=== PATIENT | female | born 1955 | race Caucasian/White ===

== ENCOUNTER → 2018-05-01 | Outpatient (CLI) | payer MEDICARE, OTHER ==
[2018-05-01 13:49] VITALS: BP 134/86; PULSE 67; RESP 16; TEMP 98.9; BMI 43.7
--- NOTE | 2018-05-01 15:24 | P.HPBAR ---
Bariatric H&P - History & Physicial H&P Date: 05/01/18 History & Physicial: Visit/CC: sleeve follow-up Patient initial contact: Initial weight: 148.778 kg Initial weight in pounds: 328.00 Height: 5 ft 6 in Initial BMI: 52.9 Last weight: 268 Current weight: 122.924 kg Current weight in pounds: 271.00 Current BMI: 43.7 [place] body weight (based on NIH guidelines): 58.967 kg Excess body weight loss: 28.7% The patient is a 63 year-old F who presents for Bariatric Assessment. The patient presents today for bariatric follow-up. She has had difficulty losing weight. She's had issues with chronic dysphagia once her band is tightened. She's had the LAP-BAND for approximately 6 years now. She has lost approximately 55 pounds. She is requesting information to convert to sleeve gastrectomy. Past Medical History Past Medical History: Asthma, Cancer, COPD, Diabetes Mellitus, GERD/Reflux, Hyperlipidemia, Hypertension, Osteoarthritis (OA), Rheumatoid Arthritis (RA) Additional Past Medical History / Comment(s): Diet controlled diabetic, hiatal hernia, umbilical hernia. Breast CA with radiation tx. Vertigo, degenerative disc disease, constipation, History of Any Multi-Drug Resistant Organisms: None Reported Past Surgical History: Bariatric Surgery, Bladder Surgery, Breast Surgery, Heart Catheterization, Hysterectomy, Joint Replacement, Tubal Ligation Additional Past Surgical History / Comment(s): Hx left shoulder replacement, carolann eye surgery for glaucoma. Lt breast bx and Lt breast Lumpectomy. Bladder sling. Lap Band 2011 Past Anesthesia/Blood Transfusion Reactions: No Reported Reaction Past Psychological History: Anxiety, Depression, Panic Disorder Smoking Status: Never smoker Past Alcohol Use History: None Reported Past Drug Use History: None Reported - Past Family History Mother Family Medical History: No Reported History Daughter(s) Family Medical History: Cancer Additional Family Medical History / Comment(s): Colon CA Son(s) Family Medical History: Deep Vein Thrombosis (DVT), Pulmonary Embolus Surgical - Exam Vital Signs Temp Pulse Resp BP 98.9 F 67 16 134/86 05/01/18 13:46 05/01/18 13:46 05/01/18 13:46 05/01/18 13:46 - General well developed, well nourished, no distress - Eyes PERRL - ENT normal pinna - Respiratory normal expansion - Cardiovascular Rhythm: regular - Abdomen Abdomen: soft, non tender Bariatric Assessment & Plan Plan: Carolyn discussion patient regarding conversion sleeve gastrectomy. Over the risks and benefits including possible injury to the stomach liver spleen. Patient will follow-up in one week. She will think about sleeve gastrectomy. Bariatric Checklist Checklist: Plan: Checklist: EGD: 1. Hiatal hernia: 2. H. Pylori: HgbA1c: Vitamin D: Smoking: Never smoker Primary care physician referral: [email or web address] Psychiatry clearance: Cardiology clearance: Sleep study: Diet journal: VTE risk score: VTE risk level: Rehab needs at discharge:
== END ==
LOC: BARWHC3 13:00 → MERGE 13:00
PROVIDERS: ATTEND Surgery
DX: Z09 Encounter for follow-up examination after completed treatment for conditions other than malignant neoplasm (principal); Z98.84 Bariatric surgery status
CPT/HCPCS: 99211

== ENCOUNTER → 2019-05-28 | Outpatient (CLI) | payer MEDICARE, OTHER ==
[2019-05-28 14:30] VITALS: BP 171/91; PULSE 75; TEMP 98; BMI 47.1
--- NOTE | 2019-05-28 16:57 | P.HPBAR ---
Bariatric H&P - History & Physicial H&P Date: 05/28/19 History & Physicial: Visit/CC: discuss revision to sleeve Patient initial contact: Initial weight: 148.778 kg Initial weight in pounds: 328.00 Height: 5 ft 6 in Initial BMI: 52.9 Last weight: Current weight: 132.449 kg Current weight in pounds: 292.00 Current BMI: 47.1 [place] body weight (based on NIH guidelines): 58.967 kg Excess body weight loss: 18.1% The patient is a 64 year-old F who presents for Bariatric Assessment. Patient has had issues with dysphagia. She is requesting conversion sleeve gastrectomy. She is unable to have her band adjusted tighter due to chronic dysphagia. Past Medical History Past Medical History: Asthma, Cancer, COPD, Diabetes Mellitus, GERD/Reflux, Hyperlipidemia, Hypertension, Osteoarthritis (OA), Rheumatoid Arthritis (RA) Additional Past Medical History / Comment(s): Diet controlled diabetic, hiatal hernia, umbilical hernia. Breast CA with radiation tx. Vertigo, degenerative disc disease, constipation, History of Any Multi-Drug Resistant Organisms: None Reported Past Surgical History: Bariatric Surgery, Bladder Surgery, Breast Surgery, Heart Catheterization, Hysterectomy, Joint Replacement, Tubal Ligation Additional Past Surgical History / Comment(s): Hx left shoulder replacement, carolann eye surgery for glaucoma. Lt breast bx and Lt breast Lumpectomy. Bladder sling. Lap Band 2011 Past Anesthesia/Blood Transfusion Reactions: No Reported Reaction Smoking Status: Never smoker - Past Family History Mother Family Medical History: No Reported History Daughter(s) Family Medical History: Cancer Additional Family Medical History / Comment(s): Colon CA Son(s) Family Medical History: Deep Vein Thrombosis (DVT), Pulmonary Embolus Surgical - Exam Vital Signs Temp Pulse BP 98.0 F 75 171/91 05/28/19 14:22 05/28/19 14:22 05/28/19 14:22 - General well developed, well nourished, no distress - Eyes PERRL - Abdomen Abdomen: soft, non tender Bariatric Assessment & Plan Plan: The patient has chronic dysphagia. She'll undergo EGD. She will attempt to have insurance authorization completed for conversion to sleeve gastrectomy. Bariatric Checklist Checklist: Plan: Checklist: EGD: 1. Hiatal hernia: 2. H. Pylori: HgbA1c: Vitamin D: Smoking: Never smoker Primary care physician referral: momo Psychiatry clearance: Cardiology clearance: Sleep study: Diet journal: VTE risk score: VTE risk level: Rehab needs at discharge:
== END ==
LOC: BARWHC3 13:15
PROVIDERS: ATTEND Surgery
DX: Z48.815 Encounter for surgical aftercare following surgery on the digestive system (principal); R13.10 Dysphagia, unspecified; Z98.84 Bariatric surgery status
CPT/HCPCS: 99211

== ENCOUNTER 2019-06-12 07:05 | Day surgery (SDC) | payer MEDICARE, OTHER ==
[2019-06-08 16:50] VITALS: BMI 46.5
[~2019-06-12 07:05] MED LIST: LACTATED RINGERS 1,000 ML IV SCH; LIDOCAINE 1% 20 ML VIAL (10MG/ML) FOR IV START INTRADERMA PRN
[2019-06-12 07:20] VITALS: TEMP 98.1
[2019-06-12 07:28] LABS: Glucose,Whole Blood 145 mg/dL (75-99)
[2019-06-12] MEDS ORDERED: LACTATED RINGERS 1,000 ML IV ONE ×2 (07:28)
[2019-06-12] MEDS ORDERED: PROPOFOL 10 MG/ML 20 ML VIAL IV ONE (07:40)
[2019-06-12] MEDS ORDERED: LIDOCAINE 1% INJ 10MG/ML (20 ML MDV) ONE (07:40)
--- NOTE | 2019-06-12 07:56 | P.GSHP ---
History of Present Illness H&P Date: 06/12/19 Chief Complaint: Dysphagia This is a 64-year-old female with history of dysphagia. Patient presents today for EGD. She's, putting converting to sleeve gastrectomy from her LAP-BAND. Past Medical History Past Medical History: Asthma, Cancer, COPD, Diabetes Mellitus, Eye Disorder, GERD/Reflux, Hearing Disorder / Deafness, Hyperlipidemia, Hypertension, Osteoarthritis (OA), Rheumatoid Arthritis (RA), Sleep Apnea/CPAP/BIPAP Additional Past Medical History / Comment(s): Diet controlled diabetic, hiatal hernia, umbilical hernia. Lt Breast CA with radiation tx. Vertigo, DDD, carolann cataracts. Avoids CPAP use. Occ cramping pain in ULQ abd. History of Any Multi-Drug Resistant Organisms: None Reported Past Surgical History: Bariatric Surgery, Bladder Surgery, Breast Surgery, Cholecystectomy, Heart Catheterization, Hysterectomy, Joint Replacement, Tubal Ligation Additional Past Surgical History / Comment(s): Hx left shoulder replacement, carolann eye surgery for glaucoma. Lt breast bx and Lt breast Lumpectomy. Bladder sling. Lap Band 2011. Colonoscopy Past Anesthesia/Blood Transfusion Reactions: No Reported Reaction Smoking Status: Never smoker - Past Family History Daughter(s) Family Medical History: Cancer Additional Family Medical History / Comment(s): Colon CA Son(s) Family Medical History: Deep Vein Thrombosis (DVT), Pulmonary Embolus Medications and Allergies Home Medications Medication Instructions Recorded Confirmed Type ALPRAZolam [Xanax] 0.5 mg PO TID PRN 03/17/16 06/08/19 History Cholecalciferol [Vitamin D3] 2,000 unit PO QAM 03/17/16 06/08/19 History Magnesium Oxide [Magox 400] 400 mg PO QAM 03/17/16 06/08/19 History Anastrozole [Arimidex] 1 mg PO QAM 09/23/16 06/08/19 History Lisinopril [Zestril] 5 mg PO QAM 09/23/16 06/08/19 History Meclizine [Antivert] 25 mg PO TID PRN 09/23/16 06/08/19 History Omeprazole 20 mg PO DAILY 01/10/17 06/08/19 History Ascorbic Acid [Vitamin C] 500 mg PO DAILY 06/08/19 06/08/19 History Citalopram Hydrobromide [CeleXA] 20 mg PO DAILY 06/08/19 06/08/19 History Allergies Allergy/AdvReac Type Severity Reaction Status Date / Time cigarette smoke Allergy Dyspnea, Verified 06/08/19 16:30 congestion nylon Allergy Itching Verified 06/08/19 16:30 wool Allergy Itching Verified 06/08/19 16:30 Surgical - Exam Vital Signs Temp Pulse Resp BP Pulse Ox 98.1 F 91 18 140/63 93 L 06/12/19 07:19 06/12/19 07:19 06/12/19 07:19 06/12/19 07:19 06/12/19 07:19 - General well developed, well nourished, no distress - Eyes PERRL - ENT normal pinna - Neck no masses - Respiratory normal expansion - Cardiovascular Rhythm: regular - Abdomen Abdomen: soft, non tender Results - Labs Abnormal Lab Results - Last 24 Hours (Table) 06/12/19 Range/Units 07:26 POC Glucose (mg/dL) 145 H (75-99) mg/dL Assessment and Plan Assessment: Dysphagia Morbid obesity BMI 47 We'll perform EGD.
--- NOTE | 2019-06-12 08:06 | P.OP ---
Date of Procedure: 06/12/19 Preoperative Diagnosis: Dysphagia Postoperative Diagnosis: Antral gastritis LAP-BAND without evidence of inflammation or erosion Procedure(s) Performed: EGD Anesthesia: MAC Surgeon: Justin Orourke Pathology: other (Antrum) Condition: stable Disposition: PACU Description of Procedure: The patient's placed on the endoscopy table in the lateral position. She received IV sedation. The gastroscope placed oropharynx and passed in the esophagus and into the stomach. Scope was then placed through the pylorus. The first and second portion of the duodenum appeared normal. Scope was then brought back the antrum and this appeared mildly inflamed. A biopsies performed. The scope was unretroflexed and remainder the stomach appeared normal. The patient a previous Patrice device this without evidence insufflation erosion. The GE junction was at 40 cm. Distal esophagus appeared normal. Prostate esophagus. Normal. Scope withdrawn for patient.
[2019-06-12 08:26] VITALS: BP 100/63; PULSE 94; RESP 18
--- NOTE | 2019-06-12 09:09 | P.GSHP ---
History of Present Illness H&P Date: 06/12/19 Chief Complaint: Dysphagia This is a 64-year-old female who's issues with dysphagia. Patient presents today for EGD. Past Medical History Past Medical History: Asthma, Cancer, COPD, Diabetes Mellitus, Eye Disorder, GERD/Reflux, Hearing Disorder / Deafness, Hyperlipidemia, Hypertension, Osteoarthritis (OA), Rheumatoid Arthritis (RA), Sleep Apnea/CPAP/BIPAP Additional Past Medical History / Comment(s): Diet controlled diabetic, hiatal hernia, umbilical hernia. Lt Breast CA with radiation tx. Vertigo, DDD, carolann cataracts. Avoids CPAP use. Occ cramping pain in ULQ abd. History of Any Multi-Drug Resistant Organisms: None Reported Past Surgical History: Bladder Surgery, Breast Surgery, Cholecystectomy, Heart Catheterization, Hysterectomy, Joint Replacement, Tubal Ligation Additional Past Surgical History / Comment(s): Hx left shoulder replacement, carolann eye surgery for glaucoma. Lt breast bx and Lt breast Lumpectomy. Bladder sling. Lap Band 2011. Colonoscopy Past Anesthesia/Blood Transfusion Reactions: No Reported Reaction Smoking Status: Never smoker - Past Family History Daughter(s) Family Medical History: Cancer Additional Family Medical History / Comment(s): Colon CA Son(s) Family Medical History: Deep Vein Thrombosis (DVT), Pulmonary Embolus Medications and Allergies Home Medications Medication Instructions Recorded Confirmed Type ALPRAZolam [Xanax] 0.5 mg PO TID PRN 03/17/16 06/08/19 History Cholecalciferol [Vitamin D3] 2,000 unit PO QAM 03/17/16 06/08/19 History Magnesium Oxide [Magox 400] 400 mg PO QAM 03/17/16 06/08/19 History Anastrozole [Arimidex] 1 mg PO QAM 09/23/16 06/08/19 History Lisinopril [Zestril] 5 mg PO QAM 09/23/16 06/08/19 History Meclizine [Antivert] 25 mg PO TID PRN 09/23/16 06/08/19 History Omeprazole 20 mg PO DAILY 01/10/17 06/08/19 History Ascorbic Acid [Vitamin C] 500 mg PO DAILY 06/08/19 06/08/19 History Citalopram Hydrobromide [CeleXA] 20 mg PO DAILY 06/08/19 06/08/19 History Allergies Allergy/AdvReac Type Severity Reaction Status Date / Time cigarette smoke Allergy Dyspnea, Verified 06/08/19 16:30 congestion nylon Allergy Itching Verified 06/08/19 16:30 wool Allergy Itching Verified 06/08/19 16:30 Surgical - Exam Vital Signs Temp Pulse Resp BP Pulse Ox 98.1 F 91 18 140/63 93 L 06/12/19 07:19 06/12/19 07:19 06/12/19 07:19 06/12/19 07:19 06/12/19 07:19 - General well developed, well nourished, no distress - Eyes PERRL - ENT normal pinna - Neck no masses - Respiratory normal expansion - Cardiovascular Rhythm: regular - Abdomen Abdomen: soft, non tender Results - Labs Abnormal Lab Results - Last 24 Hours (Table) 06/12/19 Range/Units 07:26 POC Glucose (mg/dL) 145 H (75-99) mg/dL Assessment and Plan Assessment: Dysphagia. We'll perform EGD.
--- NOTE | 2019-06-12 09:16 | P.OP ---
Date of Procedure: 06/12/19 Preoperative Diagnosis: Dysphagia Postoperative Diagnosis: Antral gastritis Mild esophagitis Procedure(s) Performed: EGD Anesthesia: MAC Surgeon: Justin Orourke Pathology: other (Antrum, esophagus) Condition: stable Disposition: PACU Description of Procedure: The patient's placed on the endoscopy table in the lateral position. She received IV sedation. The gastroscope placed oropharynx passed in the esophagus and stomach. Scope was then placed through the pylorus. First and second part of duodenum was normal. Scope summer back the antrum and this was mildly inflamed. A biopsies was performed. Scope was then retroflexed the remainder some appeared normal. The previous site of the LAP-BAND appeared to be without evidence of inflammation or erosion. The GE junction was at 40 cms. The distal esophagus appeared mildly inflamed a biopsies performed. The proximal esophagus appeared normal. Scope was withdrawn for patient.
== END 2019-06-12 08:35 | disposition home or self-care (01) ==
LOC: ORWHC2ENDO 07:05
PROVIDERS: ATTEND Surgery
DX: K31.9 Disease of stomach and duodenum, unspecified (principal); K21.9 Gastro-esophageal reflux disease without esophagitis; Z98.84 Bariatric surgery status; J44.9 Chronic obstructive pulmonary disease, unspecified; E11.9 Type 2 diabetes mellitus without complications; I10 Essential (primary) hypertension; E78.5 Hyperlipidemia, unspecified; H91.90 Unspecified hearing loss, unspecified ear; M19.90 Unspecified osteoarthritis, unspecified site; M06.9 Rheumatoid arthritis, unspecified; C50.912 Malignant neoplasm of unspecified site of left female breast; Z92.3 Personal history of irradiation; G47.30 Sleep apnea, unspecified; K44.9 Diaphragmatic hernia without obstruction or gangrene; K42.9 Umbilical hernia without obstruction or gangrene; R42 Dizziness and giddiness; Z90.49 Acquired absence of other specified parts of digestive tract; Z90.710 Acquired absence of both cervix and uterus; Z96.612 Presence of left artificial shoulder joint; Z96.611 Presence of right artificial shoulder joint; Z98.51 Tubal ligation status; Z84.89 Family history of other specified conditions; Z79.811 Long term (current) use of aromatase inhibitors; Z79.899 Other long term (current) drug therapy; Z91.09 Other allergy status, other than to drugs and biological substances
CPT/HCPCS: 88305; 43239; J2001; J2704

== ENCOUNTER → 2019-07-09 | Outpatient (CLI) | payer MEDICARE, OTHER ==
[2019-07-09 15:15] VITALS: BP 137/75; PULSE 88; RESP 16; TEMP 98; BMI 45.8
--- NOTE | 2019-07-09 18:02 | P.HPBAR ---
Bariatric H&P - History & Physicial H&P Date: 07/09/19 History & Physicial: Visit/CC: Removal of Band to Sleeve Patient initial contact: Initial weight: 148.778 kg Initial weight in pounds: 328.00 Height: 5 ft 6 in Initial BMI: 52.9 Last weight: Current weight: 128.82 kg Current weight in pounds: 284.00 Current BMI: 45.8 [place] body weight (based on NIH guidelines): 58.967 kg Excess body weight loss: 22.2% The patient is a 64 year-old F who presents for Bariatric Assessment. Patient presents today for LAP-BAND follow-up. She is doing has complaints of GERD and dysphagia. She is unable to tolerate any further refills. Past Medical History Past Medical History: Asthma, Cancer, COPD, Diabetes Mellitus, Eye Disorder, GERD/Reflux, Hearing Disorder / Deafness, Hyperlipidemia, Hypertension, Osteoarthritis (OA), Rheumatoid Arthritis (RA), Sleep Apnea/CPAP/BIPAP Additional Past Medical History / Comment(s): Diet controlled diabetic, hiatal hernia, umbilical hernia. Lt Breast CA with radiation tx. Vertigo, DDD, carolann cataracts. Avoids CPAP use. Occ cramping pain in ULQ abd. History of Any Multi-Drug Resistant Organisms: None Reported Past Surgical History: Bladder Surgery, Breast Surgery, Cholecystectomy, Heart Catheterization, Hysterectomy, Joint Replacement, Tubal Ligation Additional Past Surgical History / Comment(s): Hx left shoulder replacement, carolann eye surgery for glaucoma. Lt breast bx and Lt breast Lumpectomy. Bladder sling. Lap Band 2011. Colonoscopy Past Anesthesia/Blood Transfusion Reactions: No Reported Reaction Past Psychological History: Anxiety, Depression Smoking Status: Never smoker Past Alcohol Use History: None Reported Past Drug Use History: None Reported - Past Family History Daughter(s) Family Medical History: Cancer Additional Family Medical History / Comment(s): Colon CA Son(s) Family Medical History: Deep Vein Thrombosis (DVT), Pulmonary Embolus Surgical - Exam Vital Signs Temp Pulse Resp BP 98 F 88 16 137/75 07/09/19 15:12 07/09/19 15:12 07/09/19 15:12 07/09/19 15:12 - General well developed, well nourished, no distress - Eyes PERRL - ENT normal pinna - Neck no masses - Respiratory normal expansion - Cardiovascular Rhythm: regular - Abdomen Abdomen: soft, non tender Bariatric Assessment & Plan Plan: The patient wishes to convert to sleeve yesterday. She's had chronic issues with GERD and dysphagia. We'll attempt to obtain insurance authorization for conversion to sleeve. Bariatric Checklist Checklist: Plan: Checklist: EGD: 1. Hiatal hernia: 2. H. Pylori: HgbA1c: Vitamin D: Smoking: Never smoker Primary care physician referral: kut Psychiatry clearance: Cardiology clearance: Sleep study: Diet journal: VTE risk score: VTE risk level: Rehab needs at discharge:
== END ==
LOC: BARWHC3 14:14
PROVIDERS: ATTEND Surgery
DX: Z48.815 Encounter for surgical aftercare following surgery on the digestive system (principal); K21.9 Gastro-esophageal reflux disease without esophagitis; R13.10 Dysphagia, unspecified; Z98.84 Bariatric surgery status; Z90.49 Acquired absence of other specified parts of digestive tract; Z98.51 Tubal ligation status
CPT/HCPCS: 99211

== ENCOUNTER → 2019-09-10 | Outpatient (CLI) | payer MEDICARE, OTHER ==
[2019-09-10 10:07] VITALS: BMI 45.3
== END | disposition home or self-care (01) ==
LOC: BARWHC3 07:56
PROVIDERS: ATTEND Surgery
DX: E66.01 Morbid (severe) obesity due to excess calories (principal); E11.65 Type 2 diabetes mellitus with hyperglycemia; Z68.42 Body mass index [BMI] 45.0-49.9, adult
CPT/HCPCS: 97804

== ENCOUNTER → 2020-04-14 | Outpatient (CLI) | payer MEDICARE, OTHER | END | disposition home or self-care (01) | LOC: BARWHC3 07:56 | PROVIDERS: ATTEND Surgery | DX: Z53.9 Procedure and treatment not carried out, unspecified reason (principal) ==

== ENCOUNTER 2020-05-05 12:47 | Day surgery (SDC) | payer MEDICARE, OTHER ==
[2020-05-01 14:37] VITALS: BMI 47.6
--- NOTE | 2020-05-05 10:44 | HP ---
HISTORY AND PHYSICAL CHIEF COMPLAINT: Fluid in both ears. HISTORY OF PRESENT ILLNESS: This patient is a 65-year-old female who was recently seen in my office complaining of difficulty hearing. At the time that the patient was seen in my office, she stated that she had been seen at [facility] and that they had recommended that she see an ENT specialist. The patient states that she has ringing of both ears and that she has a history of having had tubes placed in her ears 5 or 6 years ago. She stated that when she talks, it sounds as if she had her head stuck in a bucket. 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 It was recommended the patient undergo a bilateral myringotomy with insertion of ventilation tubes under IV sedation with MAC. PAST MEDICAL HISTORY: Reveals the patient has seasonal allergies, but she has no known allergies to medications. She is a nonsmoker. CURRENT MEDICATIONS: Include Prilosec, Celexa, Xanax, Antivert, and lisinopril. PREVIOUS SURGERIES: Include bilateral myringotomy with insertion of ventilation tubes, shoulder surgery, cholecystectomy, hysterectomy, and lap band surgery. REVIEW OF SYSTEMS: CARDIOVASCULAR: Positive for hypertension. RESPIRATORY: Negative. GASTROINTESTINAL: Positive for gastroesophageal reflux disorder, GERD. The remainder of the review of systems is essentially unremarkable. PHYSICAL EXAMINATION: This patient is a 65-year-old female who was alert, cooperative and well-oriented in it to time and place. HEENT: Examination, patient is normocephalic. Both tympanic membranes are dull bilaterally with fluid in both middle ear spaces. Pupils are equal, round, react to light and accommodation. Extraocular movements are within normal limits. INTRANASAL EXAMINATION: Intranasal examination reveals moderate septal deviation with compensatory hypertrophy of the inferior turbinates and a moderate amount of mucus on the mucous membrane draining down the posterior pharynx. Examination of oropharynx, cranial nerves 2 through 12 and remainder of the head and neck exam are within normal limits. CHEST/CARDIOVASCULAR: Both lung carr are clear to percussion and auscultation. The patient is in regular sinus rhythm, S1, S2 are present without evidence of any murmurs S3s or S4s. Peripheral pulses are bilaterally symmetrical and within normal limits. ABDOMEN: There is no evidence any masses, megaly, or tenderness. ABDOMEN: Soft. SKIN: Unremarkable. MUSCULOSKELETAL AND NEUROLOGICAL: Within normal limits. PELVIC RECTAL EXAM: Deferred at this time because the patient has this done on a regular basis at her family physician's office. The remainder of the physical exam is unremarkable. IMPRESSION: Chronic bilateral serous otitis media. PLAN: The patient is scheduled to undergo a bilateral myringotomy with insertion of ventilation tubes under IV sedation in the a.m. Attention RNs in the pre-surgical area: I have not ordered any pre-surgical prophylactic antibiotics for this patient. If the pharmacy department sends any pre- surgical prophylactic antibiotics to the pre-surgical area for this patient, that order should be cancelled, the medication should be returned to the Pharmacy Department and make sure that the patient's account is credited appropriately. Neymar I have discussed the risks, benefits and alternative therapies for the above-mentioned procedure and for both sedation/analgesia as well as necessary blood product administration, if indicated, as they pertain to this patient. The patient has indicated his or her understanding and acceptance of the risks and procedures discussed. MMODL / IJN: [id number] /
[~2020-05-05 12:47] MED LIST changes: +HYDROmorphone 0.5 MG/0.5 ML SYRINGE IVP PRN; -LIDOCAINE 1% 20 ML VIAL (10MG/ML) FOR IV START INTRADERMA PRN; +Pre Op ABX Message 1 EACH MISC MISCELLANE ONE
[2020-05-05 13:06] VITALS: RESP 16; TEMP 96.8
[2020-05-05] MEDS ORDERED: LIDOCAINE 1% (10MG/ML) FOR IV START INTRADERMA ONE (13:15)
[2020-05-05 13:17] LABS: Glucose,Whole Blood 113 mg/dL (75-99)
[2020-05-05] MEDS ORDERED: ONDANSETRON 4 MG/2 ML VIAL ONE (13:25)
[2020-05-05] MEDS ORDERED: ONDANSETRON 4 MG/2 ML VIAL IVP ONE (13:28)
[2020-05-05] MEDS ORDERED: DEXAMETHASONE SOD PHOSPHATE 10 MG/ML 1 ML VIAL IV ONE (13:29)
[2020-05-05] MEDS ORDERED: OFLOXACIN 0.3% OPHTH DROPS 5 ML BOTTLE BOTH EARS ONE ×2 (13:54→14:09)
[2020-05-05] MEDS ORDERED: MIDAZOLAM 2 MG/2 ML VIAL ONE (13:55)
[2020-05-05] MEDS ORDERED: PROPOFOL 10 MG/ML 20 ML VIAL IV ONE (13:55)
[2020-05-05] MEDS ORDERED: fentaNYL (PF) 50 MCG/ML 2 ML AMP ONE (13:55)
[2020-05-05 15:07] VITALS: BP 122/78; PULSE 79
--- NOTE | 2020-05-05 23:29 | OP ---
OPERATIVE REPORT DATE OF SURGERY: 05/05/2020 PREOPERATIVE DIAGNOSIS: Chronic bilateral serous otitis media. POSTOPERATIVE DIAGNOSIS: Chronic bilateral serous otitis media. ANESTHESIA: IV sedation with MAC. OPERATIVE PROCEDURE: Bilateral myringotomy with insertion of Andres T-type ventilation tubes. OPERATING SURGEON: Dr. Blackmon. COMPLICATIONS: None. OPERATIVE PROCEDURE: The patient was placed on the operating table in the supine position after uneventful induction and mask anesthesia. Satisfactory general anesthesia was obtained. Next, the operating microscope was brought into position over the patient?s right ear where after insertion of a #3 aural speculum, the external auditory canal was cleansed of all wax and debris and a myringotomy knife was used to make an incision in the anterior inferior quadrant of the right tympanic membrane. Next, the middle ear space was suctioned free of all fluid and a T-type ventilation tube was inserted through the previously made myringotomy incision without any difficulty. Attention was then directed to the left ear where the same procedure was carried out using the operating microscope and #3 aural speculum. The external auditory canal was cleansed of all wax and debris and the myringotomy knife was used to make an incision in the anterior inferior quadrant of the left tympanic membrane. Once again, the middle ear space was suctioned free of all fluid and a T-type ventilation tube was inserted through the previously made myringotomy incision without any difficulty. At this point, the procedure was terminated. There were no intraoperative complications. The patient tolerated the procedure well and was returned to the recovery room in satisfactory condition. MMODL / IJN: [id number] /
== END 2020-05-05 14:58 | disposition home or self-care (01) ==
LOC: OR 12:47
PROVIDERS: ATTEND Otolaryngology
DX: H65.23 Chronic serous otitis media, bilateral (principal); I10 Essential (primary) hypertension; E78.5 Hyperlipidemia, unspecified; J44.9 Chronic obstructive pulmonary disease, unspecified; E11.39 Type 2 diabetes mellitus with other diabetic ophthalmic complication; H42 Glaucoma in diseases classified elsewhere; G47.33 Obstructive sleep apnea (adult) (pediatric); M06.9 Rheumatoid arthritis, unspecified; E66.01 Morbid (severe) obesity due to excess calories; K21.9 Gastro-esophageal reflux disease without esophagitis; Z79.899 Other long term (current) drug therapy; Z98.84 Bariatric surgery status; Z91.09 Other allergy status, other than to drugs and biological substances; Z90.49 Acquired absence of other specified parts of digestive tract; Z90.710 Acquired absence of both cervix and uterus; Z98.890 Other specified postprocedural states
CPT/HCPCS: 69436; J2250; J1100; J2405; J3010; J2704

== ENCOUNTER → 2020-06-30 | Outpatient (CLI) | payer MEDICARE, OTHER ==
[2020-06-30 13:08] VITALS: BP 133/84; PULSE 70; RESP 16; TEMP 98.1; BMI 46.6
--- NOTE | 2020-06-30 14:02 | P.HPBAR ---
Bariatric H&P - History & Physicial H&P Date: 06/30/20 History & Physicial: Visit/CC: Pre-Surg Patient initial contact: Initial weight: 148.778 kg Initial weight in pounds: 328.00 Height: 5 ft 6 in Initial BMI: 52.9 Last weight: Current weight: 131.088 kg Current weight in pounds: 289.00 Current BMI: 46.6 [place] body weight (based on NIH guidelines): 58.967 kg Excess body weight loss: 19.6% The patient is a 65 year-old F who presents for Bariatric Assessment. She presents today for presurgical consultation. She's had history of dysphagia related to her LAP-BAND. She is being scheduled for conversion to sleeve gastrectomy with removal of LAP-BAND. Patient is an excellent understanding of the procedure. We went over the risks and benefits of procedure including conversion to the open procedure and injury to the stomach liver spleen and issues gastric staple lines of bleeding scarring obstruction. Past Medical History Past Medical History: Asthma, Cancer, COPD, Diabetes Mellitus, Eye Disorder, GERD/Reflux, Hearing Disorder / Deafness, Hyperlipidemia, Hypertension, Osteoarthritis (OA), Rheumatoid Arthritis (RA), Sleep Apnea/CPAP/BIPAP Additional Past Medical History / Comment(s): Diet controlled diabetic, intermittent heart murmur, hiatal hernia, umbilical hernia. Breast CA with radiation tx. 4 years ago, Vertigo, degenerative disc disease, constipation, doesn't use CPAP, glaucoma History of Any Multi-Drug Resistant Organisms: None Reported Past Surgical History: Bariatric Surgery, Bladder Surgery, Breast Surgery, Cholecystectomy, Heart Catheterization, Hysterectomy, Joint Replacement, Tubal Ligation Additional Past Surgical History / Comment(s): Hx left shoulder replacement, carolann eye surgery for glaucoma. Lt breast bx and Lt breast Lumpectomy. Bladder sling. Lap Band 2011, cataracts removed Past Anesthesia/Blood Transfusion Reactions: No Reported Reaction Past Psychological History: Anxiety, Depression, Panic Disorder Smoking Status: Never smoker Past Alcohol Use History: None Reported Past Drug Use History: None Reported - Past Family History Daughter(s) Family Medical History: Cancer Additional Family Medical History / Comment(s): Colon CA Son(s) Family Medical History: Deep Vein Thrombosis (DVT), Pulmonary Embolus Surgical - Exam Vital Signs Temp Pulse Resp BP 98.1 F 70 16 133/84 06/30/20 13:05 06/30/20 13:05 06/30/20 13:05 06/30/20 13:05 - General well developed, well nourished, no distress - Eyes PERRL - ENT normal pinna - Neck no masses - Respiratory normal expansion - Cardiovascular Rhythm: regular - Abdomen Abdomen: soft, non tender Bariatric Assessment & Plan Plan: Dysphagia related to her LAP-BAND. Patient will be scheduled for conversion to sleeve gastrectomy and removal of LAP-BAND system. Bariatric Checklist Checklist: Plan: Checklist: EGD: 1. Hiatal hernia: 2. H. Pylori: HgbA1c: Vitamin D: Smoking: Never smoker Primary care physician referral: kut Psychiatry clearance: Cardiology clearance: Sleep study: Diet journal: VTE risk score: VTE risk level: Rehab needs at discharge:
== END | disposition home or self-care (01) ==
LOC: BARWHC3 12:45
PROVIDERS: ATTEND Surgery
DX: R13.10 Dysphagia, unspecified (principal); Z46.51 Encounter for fitting and adjustment of gastric lap band
CPT/HCPCS: 99211

== ENCOUNTER → 2020-07-03 | Outpatient (CLI) | payer MEDICARE, OTHER ==
[2020-07-03 13:20] LABS: Basophils % (A) 1 %; Eosinophils # (A) 0.2 k/uL (0-0.7); Eosinophils % (A) 3 %; HCT 48.9 % (34.0-46.0); HGB 15.8 gm/dL (11.4-16.0); Lymphocytes # (A) 2.3 k/uL (1.0-4.8); Lymphocytes % (A) 36 %; MCH 29.9 pg (25.0-35.0); MCHC 32.3 g/dL (31.0-37.0); MCV 92.6 fL (80.0-100.0); Mean Platelet Volume 7.1; Monocytes # (A) 0.3 k/uL (0-1.0); Monocytes % (A) 5 %; Neutrophils # (A) 3.3 k/uL (1.3-7.7); Neutrophils % (A) 53 %; Platelet Count 324 k/uL (150-450); RBC 5.28 m/uL (3.80-5.40); RDW 13.4 % (11.5-15.5); WBC 6.3 k/uL (3.8-10.6)
[2020-07-03 13:38] LABS: Albumin 4.2 g/dL (3.5-5.0); Calcium 9.8 mg/dL (8.4-10.2); Total Bilirubin 0.6 mg/dL (0.2-1.3); Total Protein 7.7 g/dL (6.3-8.2)
== END | disposition home or self-care (01) ==
LOC: LABPAT 12:35
PROVIDERS: ATTEND Surgery
DX: Z01.818 Encounter for other preprocedural examination (principal)
CPT/HCPCS: 36415; 80053; 85025

== ENCOUNTER 2020-07-08 07:28 | Inpatient (IN) | payer MEDICARE, OTHER ==
[~2020-07-08 07:28] MED LIST changes: +ENOXAPARIN 40 MG/0.4 ML SYRINGE SQ ONE; -LACTATED RINGERS 1,000 ML IV SCH; +ONDANSETRON 4 MG/2 ML VIAL IVP ONE; -Pre Op ABX Message 1 EACH MISC MISCELLANE ONE; +ceFAZolin 3 GM in SODIUM CHLORIDE 0.9% 100 ML IVPB ONE; +fentaNYL (PF) 50 MCG/ML 2 ML AMP IV PRN
[2020-07-08 08:20] LABS: Glucose,Whole Blood 126 mg/dL (75-99)
[2020-07-08] MEDS: LACTATED RINGERS 1,000 ML IV SCH ×4 (08:25→14:28)
[2020-07-08] MEDS ORDERED: ONDANSETRON 4 MG/2 ML VIAL ONE (08:25)
[2020-07-08] MEDS ORDERED: ONDANSETRON 4 MG/2 ML VIAL IVP ONE (08:25)
[2020-07-08] MEDS ORDERED: DEXAMETHASONE SOD PHOSPHATE 4 MG/ML 1 ML VIAL IVP ONE (08:26)
--- NOTE | 2020-07-08 08:29 | P.GSHP ---
History of Present Illness H&P Date: 07/08/20 Chief Complaint: Dysphagia This 65-year-old female with history of LAP-BAND surgery. Patient's had complaints of dysphagia. Patient is morbidly obese. She is unable to have her Patrice adjusted. She presents today for removal of LAP-BAND conversion to sleeve gastrectomy. Past Medical History Past Medical History: Asthma, Cancer, COPD, Diabetes Mellitus, Eye Disorder, Hearing Disorder / Deafness, Hypertension, Osteoarthritis (OA), Rheumatoid Arthritis (RA), Sleep Apnea/CPAP/BIPAP Additional Past Medical History / Comment(s): Diet controlled diabetic, intermittent heart murmur, hiatal hernia, umbilical hernia. Breast CA with radiation tx. 4 years ago, Vertigo, degenerative disc disease, constipation, doesn't use CPAP, glaucoma, History of Any Multi-Drug Resistant Organisms: None Reported Past Surgical History: Bariatric Surgery, Bladder Surgery, Breast Surgery, Cholecystectomy, Ear Surgery, Heart Catheterization, Hysterectomy, Joint Replacement, Orthopedic Surgery, Tubal Ligation Additional Past Surgical History / Comment(s): Hx left shoulder replacement, carolann eye surgery for glaucoma. Lt breast biopsy and Lt breast Lumpectomy. Bladder sling. Lap Band 2011, carolann cataracts removed, carolann carpal tunnel, tubes carolann ears, Past Anesthesia/Blood Transfusion Reactions: No Reported Reaction Smoking Status: Never smoker - Past Family History Mother Family Medical History: No Reported History Daughter(s) Family Medical History: Cancer Additional Family Medical History / Comment(s): Colon CA Son(s) Family Medical History: Deep Vein Thrombosis (DVT), Pulmonary Embolus Medications and Allergies Home Medications Medication Instructions Recorded Confirmed Type Cholecalciferol [Vitamin D3] 2,000 unit PO QAM 03/17/16 07/04/20 History Magnesium Oxide [Magox 400] 400 mg PO QAM 03/17/16 07/04/20 History Anastrozole [Arimidex] 1 mg PO QAM 09/23/16 07/04/20 History Meclizine [Antivert] 25 mg PO TID PRN 09/23/16 07/04/20 History lisinopriL [Zestril] 10 mg PO QAM 09/23/16 07/04/20 History Omeprazole 20 mg PO DAILY 01/10/17 07/04/20 History Ascorbic Acid [Vitamin C] 500 mg PO DAILY 06/08/19 07/04/20 History Citalopram Hydrobromide [CeleXA] 20 mg PO DAILY 06/08/19 07/04/20 History Allergies Allergy/AdvReac Type Severity Reaction Status Date / Time cigarette smoke Allergy Dyspnea, Verified 07/08/20 07:59 congestion nylon Allergy Itching Verified 07/08/20 07:59 wool Allergy Itching Verified 07/08/20 07:59 Surgical - Exam Vital Signs Temp Pulse Resp BP Pulse Ox 97 F L 99 16 128/69 100 07/08/20 08:04 07/08/20 08:04 07/08/20 08:04 07/08/20 08:04 07/08/20 08:04 - General well developed, well nourished, no distress - Eyes PERRL - ENT normal pinna - Neck no masses - Respiratory normal expansion - Cardiovascular Rhythm: regular - Abdomen Abdomen: soft, non tender Results - Labs Abnormal Lab Results - Last 24 Hours (Table) 07/08/20 Range/Units 08:18 POC Glucose (mg/dL) 126 H (75-99) mg/dL Assessment and Plan Assessment: Morbid obesity, dysphagia, we'll perform removal of LAP-BAND and conversion to sleeve gastrectomy.
[2020-07-08] MEDS ORDERED: PROPOFOL 10 MG/ML 20 ML VIAL IV ONE (08:49)
[2020-07-08] MEDS ORDERED: fentaNYL (PF) 50 MCG/ML 2 ML AMP ONE (08:49)
[2020-07-08] MEDS ORDERED: MIDAZOLAM 2 MG/2 ML VIAL ONE (08:49)
[2020-07-08] MEDS ORDERED: NEOSTIGMINE 1 MG/ML 10 ML VIAL ONE (08:49)
[2020-07-08] MEDS ORDERED: PHENYLEPHRINE-0.9% NACL SYG 1 MG/10 ML SYRINGE ONE (08:49)
[2020-07-08] MEDS ORDERED: ePHEDrine SULFATE/0.9% NACL/PF 50 MG/5 ML SYRINGE IV ONE (08:49)
[2020-07-08] MEDS ORDERED: ROCURONIUM 10 MG/ML (10 ML VIAL) IV ONE (08:49)
[2020-07-08] MEDS ORDERED: GLYCOPYRROLATE 0.2 MG/ML 2 ML VIAL ONE (08:49)
[2020-07-08] MEDS ORDERED: LIDOCAINE 1% INJ 10MG/ML (20 ML MDV) ONE (08:49)
[2020-07-08] MEDS ORDERED: SUCCINYLCHOLINE CHLORIDE VIAL 200 MG/10 ML VIAL IV ONE (08:49)
[2020-07-08] MEDS ORDERED: HYDROmorphone (PF) 1 MG/ML ONE (08:49)
[2020-07-08] MEDS ORDERED: LIDOCAINE 1%-EPI 1:100,000 20 ML VIAL SQ ONE (09:28)
[2020-07-08] MEDS ORDERED: LACTATED RINGERS 1,000 ML IV ONE (10:12)
[2020-07-08] MEDS ORDERED: HYOSCYAMINE ORAL DROPS 1.875 MG/15 ML BOTTLE PO PRN (10:23)
[2020-07-08] MEDS ORDERED: SIMETHICONE 40 MG/0.6 ML DROPS 2,000 MG/30 ML BOTTLE PO PRN (10:23)
[2020-07-08] MEDS ORDERED: diphenhydrAMINE 50 MG/ML 1 ML VIAL IVP PRN (10:23)
[2020-07-08] MEDS ORDERED: NALOXONE 0.4 MG/ML 1 ML VIAL IV PRN (10:23)
[2020-07-08] MEDS ORDERED: HYDROmorphone 1 MG/ML 1 ML SYRINGE IVP PRN (10:23)
[2020-07-08] MEDS ORDERED: ONDANSETRON 4 MG/2 ML VIAL IVP PRN (10:23)
--- NOTE | 2020-07-08 10:28 | P.OP ---
Date of Procedure: 07/08/20 Preoperative Diagnosis: Morbid obesity Dysphagia Postoperative Diagnosis: Morbid obesity, BMI 45 Dysphagia Procedure(s) Performed: Laparoscopic removal of LAP-BAND system Laparoscopic sleeve gastrectomy Anesthesia: JON Surgeon: Justin Orourke Estimated Blood Loss (ml): 25 Pathology: other (Stomach) Condition: stable Disposition: PACU Description of Procedure: The patient was placed on the operating room table in the supine position. She received general anesthesia and then was placed in dorsal lithotomy position. Her abdomen was prepped and draped in sterile fashion. The LAP-BAND port was dissected free by incising the skin over the LAP-BAND port and then using cautery dissected the port free from some taste tissues. The PEG tube was then cut and the port was withdrawn from patient. The skin incision sites were anesthetized 1% local Xylocaine. And then the skin was incised with an 11 blade in the left lateral position. Using a blade less trocar under direct visualization the peritoneal cavity was entered. The abdomen was insufflated and then a 5 mm laparoscope was placed into the peritoneal cavity. A 5 mm trocar was placed in the right epigastric, and right lateral position. A 15 mm trocar was placed in the supra-umbilical position and another 5 mm trocar was placed in the left lateral position. The left lateral lobe of the liver was retracted. The stomach was visualized. The adhesions to the LAP-BAND device then lysed using a large cautery and sharp dissection. The anterior gastric wall plication was taken down using sharp dissection. And then the LAP-BAND was withdrawn from around stomach. LAP-BAND was extracted 15 mm trocar site. The greater curvature of the stomach was then dissected using the Harmonic scissors. The dissection occurred approximately 5 cm from the pylorus to the level of the left ira. There was no hiatal hernia seen. At this point a 40- Guamanian bougie dilator was placed the oropharynx and passed into the esophagus and into the stomach by the [employer]. The sleeve gastrectomy was performed by using the powered echelon stapler with a seam guard buttress material. Sequential firings of the stapler were performed. The gastric remnant was then brought out through the 15 mm trocar site. The dilator was withdrawn. And a orogastric tube was replaced into the stomach. The stomach was insufflated with 200 mL of methylene blue normal saline. There was no evidence of extravasation. The abdomen was irrigated there is no bleeding seen. The Michael-Kam device was used to close the 15 mm trocar with 0 Vicryl. Skin was closed with interrupted 3-0 Monocryl sutures once the trochars withdrawn. Dermabond dressing was applied. Patient was sent to recovery in stable condition.
[2020-07-08 10:48] LABS: Glucose,Whole Blood 170 mg/dL (75-99)
[2020-07-08] MEDS: ALBUTEROL NEBULIZED 2.5 MG/3 ML INHALATION SCH ×3 (12:00→20:31)
[2020-07-08] MEDS ORDERED: SODIUM CHLORIDE 0.9% 1,000 ML IV ONE (14:13)
[2020-07-08] MEDS: KETOROLAC 15 MG/ML 1 ML VIAL IVP SCH ×3 (14:27→23:10)
[2020-07-08] MEDS: 0.9% NACL WITH KCL 20 MEQ/L 1,000 ML IV SCH ×2 (16:30→22:41)
[2020-07-08 17:15] LABS: Glucose,Whole Blood 134 mg/dL (75-99)
--- NOTE | 2020-07-08 18:44 | P.CONS ---
History of Present Illness - Reason for Consult Consult date: 07/08/20 Medical management, diabetes and breast cancer Requesting physician: Justin Orourke - Chief Complaint Post gastric sleeve, morbid obesity, hypertension COPD - History of Present Illness 65-year-old female one of Dr. Contreras patient with multiple medical problem who had lab and years ago has not been working for the last 5 years known to have history of type 2 diabetes diet-controlled, history of hypertension, rheumatoid arthritis, obstructive sleep apnea and morbid obesity who was seen by Dr. Orourke and scheduled for elective gastric sleeve to convert her lap band into sleeve. Patient was admitted to the hospital today had her surgery successfully with no major complication. Patient had multiple comorbidity for her morbid obesity from obstructive sleep apnea to severe degenerative joint disease 2 type 2 diabetes 2 noncontrolled hypertension. Patient otherwise hemodynamically stable and pain is well controlled. Review of Systems CONSTITUTIONAL: Well-developed no acute respiratory distress. Morbid obesity EYES: No icterus sclerae, no conjunctivitis. EARS, NOSE, MOUTH, THROAT, and FACE: No sore throat, lymphadenopathy, carotid bruits or deformity. RESPIRATORY: History of asthma/COPD with reactive airway, CARDIOVASCULAR: No CP, Palpitation, PND, Orthopnea, or angina. GASTROINTESTINAL: No Abd pain, Nausea or vomiting, no Diarrhea or constipation, No GI Bleed, no distention or masses. GENITOURINARY: Negative for Hematuria or UTI, no kidney stones. INTEGUMENT/BREAST: Negative for any muscular injury with mild osteoarthritis.. HEMATOLOGIC/LYMPHATIC: Negative for bleed or purpura. MUSCULOSKELTAL: Negative for Myalgia or arthralgia. NEURLOGICAL: No LOC, Sz or syncope, blurred vision dizziness or abnormality.. BEHAVIORAL/PSYCH: Negative. ENDOCRINE: Negative. Social history: Patient does not smoke no alcohol abuse, no drug use she is and lives home alone. She is retired from factory work. Family history: Her father a 68 from [place], mother age 85 from old age, patient had 1 sister with eye from complication of type 1 diabetes, one brother who is age 83 with no major medical problem. Also patient has 2 children her daughter had stage IV colon cancer and had son had 4 blood clot so far. Past Medical History Past Medical History: Asthma, Cancer, COPD, Diabetes Mellitus, Eye Disorder, Hearing Disorder / Deafness, Hypertension, Osteoarthritis (OA), Rheumatoid Arthritis (RA), Sleep Apnea/CPAP/BIPAP Additional Past Medical History / Comment(s): Diet controlled diabetic, intermittent heart murmur, hiatal hernia, umbilical hernia. Breast CA with radiation tx. 4 years ago, Vertigo, degenerative disc disease, constipation, doesn't use CPAP, glaucoma, History of Any Multi-Drug Resistant Organisms: None Reported Past Surgical History: Bariatric Surgery, Bladder Surgery, Breast Surgery, Cholecystectomy, Ear Surgery, Heart Catheterization, Hysterectomy, Joint Replacement, Orthopedic Surgery, Tubal Ligation Additional Past Surgical History / Comment(s): Hx left shoulder replacement, carolann eye surgery for glaucoma. Lt breast biopsy and Lt breast Lumpectomy. Bladder sling. Lap Band 2012, carolann cataracts removed, carolann carpal tunnel, tubes carolann ears, Past Anesthesia/Blood Transfusion Reactions: No Reported Reaction Past Psychological History: Anxiety, Depression, Panic Disorder Smoking Status: Never smoker Past Alcohol Use History: None Reported Past Drug Use History: None Reported - Past Family History Mother Family Medical History: No Reported History Daughter(s) Family Medical History: Cancer Additional Family Medical History / Comment(s): Colon CA Son(s) Family Medical History: Deep Vein Thrombosis (DVT), Pulmonary Embolus Medications and Allergies Home Medications Medication Instructions Recorded Confirmed Type Cholecalciferol [Vitamin D3] 2,000 unit PO QAM 03/17/16 07/04/20 History Magnesium Oxide [Magox 400] 400 mg PO QAM 03/17/16 07/04/20 History Anastrozole [Arimidex] 1 mg PO QAM 09/23/16 07/04/20 History Meclizine [Antivert] 25 mg PO TID PRN 09/23/16 07/04/20 History lisinopriL [Zestril] 10 mg PO QAM 09/23/16 07/04/20 History Omeprazole 20 mg PO DAILY 01/10/17 07/04/20 History Ascorbic Acid [Vitamin C] 500 mg PO DAILY 06/08/19 07/04/20 History Citalopram Hydrobromide [CeleXA] 20 mg PO DAILY 06/08/19 07/04/20 History Allergies Allergy/AdvReac Type Severity Reaction Status Date / Time cigarette smoke Allergy Dyspnea, Verified 07/08/20 07:59 congestion nylon Allergy Itching Verified 07/08/20 07:59 wool Allergy Itching Verified 07/08/20 07:59 Physical Exam Vitals: Vital Signs Temp Pulse Pulse Pulse Resp BP Pulse Ox 07/08/20 16:51 76 07/08/20 16:35 72 07/08/20 14:34 98.1 F 84 16 116/71 94 L 07/08/20 13:30 82 16 142/80 95 07/08/20 13:00 77 16 141/81 95 07/08/20 12:30 74 16 140/70 96 07/08/20 12:15 84 16 145/67 97 07/08/20 12:00 75 16 147/75 96 07/08/20 11:45 78 16 139/76 96 07/08/20 11:30 80 16 139/76 96 07/08/20 11:15 86 16 130/61 92 L 07/08/20 11:00 88 16 125/64 95 07/08/20 10:45 87 16 123/63 97 07/08/20 10:34 98.2 F 95 18 142/77 95 07/08/20 08:04 97 F L 99 16 128/69 100 Intake and Output 07/08/20 07/08/20 07/08/20 06:59 14:59 22:59 Intake Total 1150 Output Total 10 Balance 1140 Intake: IV 1150 Output: Estimated Blood Loss 10 Other: Weight 127.6 kg General Appearance: Alert, cooperative, no distress, appears stated age. Morbidly obese Neck HEENT: Supple, no lymphadenopathy, no thyroid enlargement, no carotid bruits. Lungs: Decreased breath sound bilaterally with fine rhonchi no crackles has mild expiratory wheezes. Chest Wall: Decrease expansion with deep inspiration no tenderness and no deformity was found on exam, no costochondral pain or discomfort. Heart: Regular rate and rhythm, S1, S2 normal, no murmur, rub or gallop. Back: Symmetric, no curvature, ROM normal, no CVA tenderness. Abdomen: Soft, non-tender, bowel sounds active all four quadrants, no masses, no organomegaly. Incision from her surgical site looks fine with no bleeding. Extremities: Extremities normal, atraumatic, no cyanosis or edema. Pulses: 2+ and symmetric. Skin: Skin color, texture, tugor normal, no rashes or lesions. Neurologic: Alert oriented x3 cranial nerves II through XII intact, no motor deficit, no abnormal balance or gait. Results Labs: Abnormal Lab Results - Last 24 Hours (Table) 07/08/20 07/08/20 07/08/20 Range/Units 08:18 10:47 17:07 POC Glucose (mg/dL) 126 H 170 H 134 H (75-99) mg/dL Assessment and Plan Assessment: 1 post gastric sleeve: Surgery successful continue to watch patient's symptoms continue to watch hemodynamic status vitals, continue to watch patient pain, GI DVT and pulmonary prophylaxis protocol. 2 hypertension: Remain well controlled on lisinopril 10 mg daily continue medication. 3 history of asthma/COPD: Remain on Ventolin nebulizer on demand. 4 history of breast cancer colon in remission still on Arimidex 1 mg daily. 5 history of depression: Has been on citalopram 20 mg a day resume medication. 6 chronic history of's GERD: Continue patient on pantoprazole 40 mg daily. 7 history of obstructive sleep apnea: Continue to use CPAP at nighttime. 8 DVT prophylaxis: Patient will be on Lovenox 40 mg subcutaneous daily. CODE STATUS: Full code. Dr. Orourke thank you very much for the consult if I can be any further help to please let me know.
[2020-07-08 20:52] LABS: Glucose,Whole Blood 121 mg/dL (75-99)
[2020-07-09] MEDS: 0.9% NACL WITH KCL 20 MEQ/L 1,000 ML IV SCH (04:55)
[2020-07-09] MEDS: KETOROLAC 15 MG/ML 1 ML VIAL IVP SCH ×4 (05:41→23:50)
[2020-07-09 06:36] LABS: Basophils % (A) 0 %; Eosinophils % (A) 0 %; HCT 41.4 % (34.0-46.0); HGB 13.4 gm/dL (11.4-16.0); Lymphocytes # (A) 1.7 k/uL (1.0-4.8); Lymphocytes % (A) 17 %; MCH 30.7 pg (25.0-35.0); MCHC 32.2 g/dL (31.0-37.0); MCV 95.3 fL (80.0-100.0); Monocytes # (A) 0.4 k/uL (0-1.0); Monocytes % (A) 4 %; Neutrophils # (A) 7.5 k/uL (1.3-7.7); Neutrophils % (A) 77 %; Platelet Count 277 k/uL (150-450); RBC 4.35 m/uL (3.80-5.40); RDW 13.4 % (11.5-15.5); WBC 9.7 k/uL (3.8-10.6)
[2020-07-09 07:05] LABS: Glucose,Whole Blood 97 mg/dL (75-99)
[2020-07-09] MEDS: lisinopriL 10 MG TAB PO SCH ×2 (08:56→10:01)
[2020-07-09] MEDS ORDERED: NON FORMULARY DRUG (Omeprazole [Omeprazole] 20 MG Capsule.Dr) PO SCH (09:00)
--- NOTE | 2020-07-09 09:23 | FL ---
EXAMINATION TYPE: FL UGI DATE OF EXAM: 07/09/2020 CLINICAL HISTORY: Status post gastric sleeve Contrast: Omnipaque 350 50 mL The patient ingested contrast without difficulty or delay. Noted are postsurgical changes of gastric sleeve. There is no evidence for leak or obstruction. Contrast is noted within the duodenum. IMPRESSION: Post-surgical change of gastric sleeve without evidence for obstruction or leak at this point in time.
[2020-07-09 09:33] LABS: African American GFR (CKD) 67.5 (60.0-200.0); Anion Gap 4.6 mmol/L (4.00-12.00); Carbon Dioxide 29.4 mmol/L (21.6-31.8); Magnesium 1.7 mg/dL (1.5-2.4); Non-African American GFR(CKD) 58.2 (60.0-200.0); Phosphorus 4.1 mg/dL (2.4-5.1); Potassium 5.2 mmol/L (3.5-5.5)
[2020-07-09] MEDS: ALBUTEROL NEBULIZED 2.5 MG/3 ML INHALATION SCH ×4 (09:50→21:08)
[2020-07-09] MEDS: 1: MVI, ADULT NO.4 WITH VIT K 10 ML, THIAMINE 100 MG, FOLIC ACID 1 MG, POTASSIUM CHLORID IV SCH ×12 (10:00→20:51)
[2020-07-09] MEDS: PANTOPRAZOLE 40 MG/10 ML VIAL IV SCH (10:02)
[2020-07-09] MEDS: CHOLECALCIFEROL 1,000 UNIT TAB PO SCH (10:02)
[2020-07-09] MEDS: CITALOPRAM HYDROBROMIDE 20 MG TAB PO SCH (10:02)
[2020-07-09] MEDS: MAGNESIUM OXIDE 400 MG TAB PO SCH (10:02)
[2020-07-09] MEDS: ENOXAPARIN 40 MG/0.4 ML SYRINGE SQ SCH (10:03)
[2020-07-09] MEDS: ANASTROZOLE 1 MG TAB PO SCH (10:03)
[2020-07-09] MEDS: LACTATED RINGERS 1,000 ML IV SCH (10:19)
[2020-07-09 10:34] VITALS: BMI 45.3
--- NOTE | 2020-07-09 10:52 | P.PN ---
Subjective Progress Note Date: 07/09/20 HISTORY OF PRESENT ILLNESS 65-year-old female one of Dr. Contreras patient with multiple medical problem who had lab and years ago has not been working for the last 5 years known to have history of type 2 diabetes diet-controlled, history of hypertension, rheumatoid arthritis, obstructive sleep apnea and morbid obesity who was seen by Dr. Orourke and scheduled for elective gastric sleeve to convert her lap band into sleeve. Patient was admitted to the hospital today had her surgery successfully with no major complication. Patient had multiple comorbidity for her morbid obesity from obstructive sleep apnea to severe degenerative joint disease 2 type 2 diabetes 2 noncontrolled hypertension. Patient otherwise hemodynamically stable and pain is well controlled. 07/09: Patient is currently on ice chips only. She underwent upper GI which revealed no obstruction and no leak. Anticipate the diet will be advanced by Dr. Orourke today. Patient has been afebrile, heart rate 63, blood pressure 111/67, pulse ox 92% on 2 L nasal cannula. CBC within normal limits. Electrolytes and renal function normal. Blood sugar 97. Magnesium 1.7, potassium 5.2. REVIEW OF SYSTEMS CONSTITUTIONAL: Well-developed no acute respiratory distress. Morbid obesity. No fever or chills. EYES: No icterus sclerae, no conjunctivitis. EARS, NOSE, MOUTH, THROAT, and FACE: No sore throat, lymphadenopathy, carotid bruits or deformity. RESPIRATORY: History of asthma/COPD with reactive airway, CARDIOVASCULAR: No CP, Palpitation, PND, Orthopnea, or angina. GASTROINTESTINAL: No Abd pain, Nausea or vomiting, no Diarrhea or constipation, No GI Bleed, no distention or masses. GENITOURINARY: Negative for Hematuria or UTI, no kidney stones. INTEGUMENT/BREAST: Negative for any muscular injury with mild osteoarthritis.. HEMATOLOGIC/LYMPHATIC: Negative for bleed or purpura. MUSCULOSKELTAL: Negative for Myalgia or arthralgia. NEURLOGICAL: No LOC, Sz or syncope, blurred vision dizziness or abnormality.. BEHAVIORAL/PSYCH: Negative. ENDOCRINE: Negative. PHYSICAL EXAMINATION General Appearance: Alert, cooperative, no distress, appears stated age. Morbidly obese Neck HEENT: Supple, no lymphadenopathy, no thyroid enlargement, no carotid bruits. Lungs: Decreased breath sound bilaterally with fine rhonchi no crackles has mild expiratory wheezes. Chest Wall: Decrease expansion with deep inspiration no tenderness and no deformity was found on exam, no costochondral pain or discomfort. Heart: Regular rate and rhythm, S1, S2 normal, no murmur, rub or gallop. Back: Symmetric, no curvature, ROM normal, no CVA tenderness. Abdomen: Soft, non-tender, bowel sounds active all four quadrants, no masses, no organomegaly. Incision from her surgical site looks fine with no bleeding. Extremities: Extremities normal, atraumatic, no cyanosis or edema. Pulses: 2+ and symmetric. Skin: Skin color, texture, tugor normal, no rashes or lesions. Neurologic: Alert oriented x3 cranial nerves II through XII intact, no motor deficit, no abnormal balance or gait. ASSESSMENT AND PLAN 1 post gastric sleeve: Surgery successful continue to watch patient's symptoms continue to watch hemodynamic status vitals, continue to watch patient pain, GI DVT and pulmonary prophylaxis protocol. Anticipate diet will be advanced. 2 hypertension: Remain well controlled on lisinopril 10 mg daily continue medication- parameters added. 3 mild intermittent asthma/COPD: Remain on Ventolin nebulizer on demand. 4 history of breast cancer colon in remission still on Arimidex 1 mg daily. 5 recurrent depression: Has been on citalopram 20 mg a day resume medication. 6 chronic history of's GERD: Continue patient on pantoprazole 40 mg daily. 7 history of obstructive sleep apnea: Continue to use CPAP at nighttime. 8 DVT prophylaxis: Patient will be on Lovenox 40 mg subcutaneous daily. CODE STATUS: Full code. DISCHARGE PLAN Home in the next 24 hours. Impression and plan of care have been directed as dictated by the signing physician. Debbie Marrufo nurse practitioner acting as scribe for signing physician. Objective - Vital Signs Vital signs: Vital Signs Temp 98.3 F 07/09/20 07:57 Pulse 63 07/09/20 07:57 Resp 14 07/09/20 07:57 BP 111/67 07/09/20 07:57 Pulse Ox 92 L 07/09/20 08:19 Intake & Output 07/08/20 07/09/20 07/09/20 18:59 06:59 18:59 Intake Total 1150 Output Total 260 Balance 890 Weight 127.6 kg Intake: IV 1150 Output: Urine 250 Estimated Blood Loss 10 Other: Voiding Method Toilet # Voids 2 - Labs CBC & Chem 7: 07/09/20 05:50 07/09/20 05:50 Labs: Abnormal Lab Results - Last 24 Hours (Table) 07/08/20 07/08/20 07/08/20 Range/Units 10:47 17:07 20:51 POC Glucose (mg/dL) 170 H 134 H 121 H (75-99) mg/dL
[2020-07-09 11:36] LABS: Glucose,Whole Blood 78 mg/dL (75-99)
--- NOTE | 2020-07-09 14:50 | P.PN ---
Subjective Progress Note Date: 07/09/20 CHIEF COMPLAINT: Morbid obesity and dysphagia HISTORY OF PRESENT ILLNESS: Patient is status post laparoscopic removal of lap band system and laparoscopic sleeve gastrectomy. She denies any pain. Denies a [place] nausea or vomiting. Upper GI was completed showing no evidence of leak or obstruction and she was started on a bariatric clear liquid diet. Patient has had a decrease in her oxygen saturation. Her oxygen level drops to 88% on room air. She's been requiring 2 L of oxygen. Patient denies any coughing or shortness of breath. She denies any significant pain. PHYSICAL EXAM: VITAL SIGNS: Reviewed. GENERAL: Well-developed in no acute distress. HEENT: No sclera icterus. Extraocular movements grossly intact. Moist buccal mucosa. Head is atraumatic, normocephalic. ABDOMEN: Soft. Nondistended. Incision sites clean dry and intact NEUROLOGIC: Alert and oriented. Cranial nerves II through XII grossly intact. ASSESSMENT: 1. Morbid obesity and dysphagia status post laparoscopic sleeve gastrectomy and removal of lap band system. Postop day #1 2. Hypoxia possibly related to her sleep apnea, COPD and surgery PLAN: -Continue bariatric clear liquid diet -Check chest x-ray -Continue nebulizer treatments -Encouraged patient to use incentive spirometer -We'll have nursing staff ambulate patient every hour Physician [employer] note has been reviewed by physician. Signing provider agrees with the documented findings, assessment, and plan of care. Objective - Vital Signs Vital signs: Vital Signs Temp 98.1 F 07/09/20 12:23 Pulse 74 07/09/20 13:25 Resp 10 L 07/09/20 12:23 BP 103/62 07/09/20 12:23 Pulse Ox 88 L 07/09/20 09:47 Intake & Output 07/08/20 07/09/20 07/09/20 18:59 06:59 18:59 Intake Total 1150 Output Total 260 Balance 890 Weight 127.6 kg 127.6 kg Intake: IV 1150 Output: Urine 250 Estimated Blood Loss 10 Other: Voiding Method Toilet # Voids 2 1 - Labs CBC & Chem 7: 07/09/20 05:50 07/09/20 05:50 Labs: Abnormal Lab Results - Last 24 Hours (Table) 07/08/20 07/08/20 07/09/20 Range/Units 17:07 20:51 05:50 Est GFR (CKD-EPI)NonAf 58.2 L (60.0-200.0) POC Glucose (mg/dL) 134 H 121 H (75-99) mg/dL
[2020-07-09] MEDS ORDERED: MAGNESIUM SULFATE-D5W PMX 1 GM in DEXTROSE/WATER 1 100ML.BAG IVPB ONE (14:52)
[2020-07-09] MEDS ORDERED: HYDROcodone/APAP 15 ML SOLUTION PO PRN (15:02)
[2020-07-09 16:43] LABS: Glucose,Whole Blood 80 mg/dL (75-99)
--- NOTE | 2020-07-09 18:23 | XR ---
EXAMINATION TYPE: XR chest 2V DATE OF EXAM: 07/09/2020 COMPARISON: NONE HISTORY: Shortness of breath. TECHNIQUE: Frontal and lateral views of the chest are obtained. FINDINGS: There is mild bibasilar streaky opacity. No pleural effusion, or pneumothorax seen. The c ardiac silhouette size is within normal limits. The osseous structures are intact. IMPRESSION: Mild atelectasis versus infiltrate.
[2020-07-10] MEDS: KETOROLAC 15 MG/ML 1 ML VIAL IVP SCH (05:10)
[2020-07-10 07:05] VITALS: TEMP 98.2
[2020-07-10] MEDS: ALBUTEROL NEBULIZED 2.5 MG/3 ML INHALATION SCH ×3 (09:00→12:43)
[2020-07-10] MEDS: ENOXAPARIN 40 MG/0.4 ML SYRINGE SQ SCH (09:14)
[2020-07-10] MEDS: ANASTROZOLE 1 MG TAB PO SCH (09:14)
[2020-07-10] MEDS: CHOLECALCIFEROL 1,000 UNIT TAB PO SCH (09:15)
[2020-07-10] MEDS: CITALOPRAM HYDROBROMIDE 20 MG TAB PO SCH (09:15)
[2020-07-10] MEDS: MAGNESIUM OXIDE 400 MG TAB PO SCH (09:15)
[2020-07-10] MEDS: PANTOPRAZOLE 40 MG/10 ML VIAL IV SCH (09:15)
[2020-07-10] MEDS: 1: MVI, ADULT NO.4 WITH VIT K 10 ML, THIAMINE 100 MG, FOLIC ACID 1 MG, POTASSIUM CHLORID IV SCH ×6 (09:16)
--- NOTE | 2020-07-10 10:11 | P.PN ---
Subjective Progress Note Date: 07/10/20 HISTORY OF PRESENT ILLNESS 65-year-old female one of Dr. Contreras patient with multiple medical problem who had lab and years ago has not been working for the last 5 years known to have history of type 2 diabetes diet-controlled, history of hypertension, rheumatoid arthritis, obstructive sleep apnea and morbid obesity who was seen by Dr. Orourke and scheduled for elective gastric sleeve to convert her lap band into sleeve. Patient was admitted to the hospital today had her surgery successfully with no major complication. Patient had multiple comorbidity for her morbid obesity from obstructive sleep apnea to severe degenerative joint disease 2 type 2 diabetes 2 noncontrolled hypertension. Patient otherwise hemodynamically stable and pain is well controlled. 07/09: Patient is currently on ice chips only. She underwent upper GI which revealed no obstruction and no leak. Anticipate the diet will be advanced by Dr. Orourke today. Patient has been afebrile, heart rate 63, blood pressure 111/67, pulse ox 92% on 2 L nasal cannula. CBC within normal limits. Electrolytes and renal function normal. Blood sugar 97. Magnesium 1.7, potassium 5.2. 07/10: Patient was not discharged yesterday because she had a drop in her pulse ox. She was to be ambulating, incentive spirometry and she is doing well this morning. Pulse ox is 95% on room air. She has been afebrile, heart rate 79, blood pressure 110/70. Patient states that she had some nausea last night but that has resolved. She is tolerating diet, no nausea or vomiting at this time. Pain is well controlled. Patient is cleared for discharge from medicine. Patient will have follow-up with Dr. Eric. REVIEW OF SYSTEMS CONSTITUTIONAL: Well-developed no acute respiratory distress. Morbid obesity. No fever or chills. EYES: No icterus sclerae, no conjunctivitis. EARS, NOSE, MOUTH, THROAT, and FACE: No sore throat, lymphadenopathy, carotid bruits or deformity. RESPIRATORY: History of asthma/COPD with reactive airway, CARDIOVASCULAR: No CP, Palpitation, PND, Orthopnea, or angina. GASTROINTESTINAL: No Abd pain, no Nausea or vomiting, no Diarrhea or constipation, No GI Bleed, no distention or masses. GENITOURINARY: Negative for Hematuria or UTI, no kidney stones. INTEGUMENT/BREAST: Negative for any muscular injury with mild osteoarthritis.. HEMATOLOGIC/LYMPHATIC: Negative for bleed or purpura. MUSCULOSKELTAL: Negative for Myalgia or arthralgia. NEURLOGICAL: No LOC, Sz or syncope, blurred vision dizziness or abnormality.. BEHAVIORAL/PSYCH: Negative. ENDOCRINE: Negative. PHYSICAL EXAMINATION General Appearance: Alert, cooperative, no distress, appears stated age. Morbidly obese Neck HEENT: Supple, no lymphadenopathy, no thyroid enlargement, no carotid bruits. Lungs: Decreased breath sound bilaterally with fine rhonchi no crackles has mild expiratory wheezes. Chest Wall: Decrease expansion with deep inspiration no tenderness and no deformity was found on exam, no costochondral pain or discomfort. Heart: Regular rate and rhythm, S1, S2 normal, no murmur, rub or gallop. Back: Symmetric, no curvature, ROM normal, no CVA tenderness. Abdomen: Soft, non-tender, bowel sounds active all four quadrants, no masses, no organomegaly. Incision site looks fine with no bleeding. Extremities: Extremities normal, atraumatic, no cyanosis or edema. Pulses: 2+ and symmetric. Skin: Skin color, texture, tugor normal, no rashes or lesions. Neurologic: Alert oriented x3 cranial nerves II through XII intact, no motor deficit, no abnormal balance or gait. ASSESSMENT AND PLAN 1 post gastric sleeve: Surgery successful continue to watch patient's symptoms continue to watch hemodynamic status vitals, continue to watch patient pain, GI DVT and pulmonary prophylaxis protocol. Bariatric clear liquid diet tolerated. 2 hypertension: Remain well controlled on lisinopril 10 mg daily continue medication- parameters added. 3 mild intermittent asthma/COPD: Remain on Ventolin nebulizer on demand. 4 history of breast cancer colon in remission still on Arimidex 1 mg daily. 5 recurrent depression: Has been on citalopram 20 mg a day resume medication. 6 chronic history of's GERD: Continue patient on pantoprazole 40 mg daily. 7 history of obstructive sleep apnea: Continue to use CPAP at nighttime. 8 DVT prophylaxis: Patient will be on Lovenox 40 mg subcutaneous daily. CODE STATUS: Full code. DISCHARGE PLAN Home Impression and plan of care have been directed as dictated by the signing physician. Debbie Marrufo nurse practitioner acting as scribe for signing physician. Objective - Vital Signs Vital signs: Vital Signs Temp 98.2 F 07/10/20 07:05 Pulse 79 07/10/20 07:05 Resp 18 07/10/20 07:05 BP 110/70 07/10/20 07:05 Pulse Ox 95 07/10/20 07:05 Intake & Output 07/09/20 07/10/20 07/10/20 18:59 06:59 18:59 Intake Total 1021.2 Balance 1021.2 Weight 127.6 kg Intake: Intake, IV Titration 1021.2 Amount Mvi, Adult No.4 with Vit 1021.2 K 10 ml Thiamine 100 mg Folic Acid 1 mg Potassium Chloride 20 meq In Sodium Chloride 0.9% 1, 000 ml @ 100 mls/hr IV . BY DURATION [facility] Rx#: [id number] Other: Voiding Method Toilet # Voids 1 1 - Labs CBC & Chem 7: 07/09/20 05:50 07/09/20 05:50 Labs: Abnormal Lab Results - Last 24 Hours (Table) 07/09/20 Range/Units 05:50 Est GFR (CKD-EPI)NonAf 58.2 L (60.0-200.0)
--- NOTE | 2020-07-10 11:21 | P.DS ---
Providers Date of admission: 07/08/20 07:28 Expected date of discharge: 07/10/20 Attending physician: Justin Orourke Consults: 07/08/20 10:23 Consult Physician Routine Consulting Provider: Rigoberto Kasper Consult Reason/Comments: Medical management Do you want consulting provider notified?: Yes Primary care physician: Steffen Kelley rosalba Hospital Course: Discharge diagnosis 1. Morbid obesity and dysphagia status post laparoscopic sleeve gastrectomy and removal of lap band system. 2. Hypoxia possibly related to her atelectasis, sleep apnea, COPD and anesthesia from surgery. Now resolved Hospital course This is a 65-year-old female with a known history of morbid obesity and dysphagia. She is status post sleeve gastrectomy and removal of lap band system. Patient is tolerating her bariatric clear liquid diet. Upper GI showed no evidence of obstruction or leak. Yesterday she had a decrease in her oxygen saturation. And her discharge was held. Her oxygen saturation on room air is now at 95%. Patient had chest x-ray showing evidence of atelectasis. She has been up and ambulating. Her pain is controlled. She is tolerating diet. She's afebrile. She is stable for discharge. Please refer to chart for any further details. Physician Scrip Clerk note has been reviewed by physician. Signing provider agrees with the documented findings, assessment, and plan of care. Patient Condition at Discharge: Stable Plan - Discharge Summary Discharge Rx Participant: Yes New Discharge Prescriptions: New bisacodyL [Dulcolax] 5 mg PO DAILY PRN #10 tablet. PRN Reason: Constipation Simethicone 40 mg/0.6 ml Drops [Mylicon Drops] 40 mg PO PCHS PRN #30 ml PRN Reason: Gas HYDROcodone/APAP [[place] Elixir 7.5-325Mg/15Ml] 15 ml PO Q6H PRN 3 Days #180 ml PRN Reason: Pain Omeprazole [PriLOSEC] 40 mg PO DAILY #30 capsule. Ondansetron Odt [Zofran Odt] 4 mg PO Q8HR PRN #9 tab PRN Reason: Nausea Continue Magnesium Oxide [Magox 400] 400 mg PO QAM Cholecalciferol [Vitamin D3 (25 Mcg = 1000 Iu)] 2,000 unit PO QAM Meclizine [Antivert] 25 mg PO TID PRN PRN Reason: Vertigo lisinopriL [Zestril] 10 mg PO QAM Anastrozole [Arimidex] 1 mg PO QAM Ascorbic Acid [Vitamin C] 500 mg PO DAILY Citalopram Hydrobromide [CeleXA] 20 mg PO DAILY Discontinued Omeprazole 20 mg PO DAILY Discharge Medication List Cholecalciferol [Vitamin D3 (25 Mcg = 1000 Iu)] 2,000 unit PO QAM 03/17/16 [History] Magnesium Oxide [Magox 400] 400 mg PO QAM 03/17/16 [History] Anastrozole [Arimidex] 1 mg PO QAM 09/23/16 [History] Meclizine [Antivert] 25 mg PO TID PRN 09/23/16 [History] lisinopriL [Zestril] 10 mg PO QAM 09/23/16 [History] Ascorbic Acid [Vitamin C] 500 mg PO DAILY 06/08/19 [History] Citalopram Hydrobromide [CeleXA] 20 mg PO DAILY 06/08/19 [History] HYDROcodone/APAP [[place] Elixir 7.5-325Mg/15Ml] 15 ml PO Q6H PRN 3 Days #180 ml 07/10/20 [Rx] Omeprazole [PriLOSEC] 40 mg PO DAILY #30 capsule. 07/10/20 [Rx] Ondansetron Odt [Zofran Odt] 4 mg PO Q8HR PRN #9 tab 07/10/20 [Rx] Simethicone 40 mg/0.6 ml Drops [Mylicon Drops] 40 mg PO PCHS PRN #30 ml 07/10/20 [Rx] bisacodyL [Dulcolax] 5 mg PO DAILY PRN #10 tablet. 07/10/20 [Rx] [place] [facility]ment(s[place]Ref[place]/11/20 10:00 am (Nurse Visit) Activity/Diet/Wound Care/Special Instructions: No driving while taking [place] No lifting over 10 pounds You may shower. No soaking or tub baths for 2 weeks Very light activity until you are reevaluated at your follow up appointment with your surgeon No straws or carbonated beverages Cut and crush all pills that are greater than the size of a TicTac Follow bariatric diet Discharge Disposition: HOME SELF-CARE
[2020-07-11 07:43] VITALS: BP 100/65; PULSE 67; RESP 12
== END 2020-07-10 13:55 | disposition home or self-care (01) | DRG 620 ==
LOC: 2ORMAIN 07:28 → 4SSUR 13:53
PROVIDERS: ADMIT Surgery; ATTEND Surgery
PROC: 0DP64CZ Removal of Extraluminal Device from Stomach, Percutaneous Endoscopic Approach (ICD-10-PCS; principal; 2020-07-08 08:55)
PROC: 0DB64Z3 Excision of Stomach, Percutaneous Endoscopic Approach, Vertical (ICD-10-PCS; 2020-07-08 08:55)
DX: E66.01 Morbid (severe) obesity due to excess calories (principal); F33.9 Major depressive disorder, recurrent, unspecified; J98.11 Atelectasis; Z68.42 Body mass index [BMI] 45.0-49.9, adult; J44.9 Chronic obstructive pulmonary disease, unspecified; E11.9 Type 2 diabetes mellitus without complications; M06.9 Rheumatoid arthritis, unspecified; R13.10 Dysphagia, unspecified; M19.90 Unspecified osteoarthritis, unspecified site; H91.90 Unspecified hearing loss, unspecified ear; K44.9 Diaphragmatic hernia without obstruction or gangrene; M51.36 Other intervertebral disc degeneration, lumbar region; H40.9 Unspecified glaucoma; I10 Essential (primary) hypertension; G47.33 Obstructive sleep apnea (adult) (pediatric); K21.9 Gastro-esophageal reflux disease without esophagitis; F41.9 Anxiety disorder, unspecified; F41.0 Panic disorder [episodic paroxysmal anxiety]; J45.20 Mild intermittent asthma, uncomplicated; R09.02 Hypoxemia; R11.0 Nausea; K59.00 Constipation, unspecified; Z79.899 Other long term (current) drug therapy; Z79.811 Long term (current) use of aromatase inhibitors; Z92.3 Personal history of irradiation; Z85.3 Personal history of malignant neoplasm of breast; Z98.84 Bariatric surgery status; Z98.890 Other specified postprocedural states; Z90.49 Acquired absence of other specified parts of digestive tract; Z90.710 Acquired absence of both cervix and uterus; Z96.612 Presence of left artificial shoulder joint; Z98.42 Cataract extraction status, left eye; Z98.41 Cataract extraction status, right eye; Z85.038 Personal history of other malignant neoplasm of large intestine; Z91.048 Other nonmedicinal substance allergy status; Z82.49 Family history of ischemic heart disease and other diseases of the circulatory system; Z83.3 Family history of diabetes mellitus; Z80.0 Family history of malignant neoplasm of digestive organs
CPT/HCPCS: 71046; 74240; 80051; 82310; 82565; 83735; 84100; 84520; 85025; 88307; 94640; 94760; 94762

== ENCOUNTER → 2020-07-11 | Outpatient (CLI) | payer MEDICARE, OTHER ==
[2020-07-11 10:36] VITALS: BP 128/65; PULSE 72; RESP 18; TEMP 98
== END | disposition home or self-care (01) ==
LOC: BARWHC3 09:24
PROVIDERS: ATTEND Surgery
DX: E66.01 Morbid (severe) obesity due to excess calories (principal); Z68.42 Body mass index [BMI] 45.0-49.9, adult
CPT/HCPCS: 99211

== ENCOUNTER → 2020-07-21 | Outpatient (CLI) | payer MEDICARE, OTHER ==
[2020-07-21 13:19] VITALS: BP 124/80; PULSE 76; RESP 18; TEMP 97.8
[2020-07-21 13:59] VITALS: BMI 43.2
--- NOTE | 2020-07-21 14:35 | P.HPBAR ---
Bariatric H&P - History & Physicial H&P Date: 07/21/20 History & Physicial: Visit/CC: follow up ; 13 days post sx Patient initial contact: Initial weight: 148.778 kg Initial weight in pounds: 328.00 Height: 5 ft 6 in Initial BMI: Last weight: Current weight: 121.563 kg Current weight in pounds: Current BMI: 43.2 [place] body weight (based on NIH guidelines): 58.967 kg Excess body weight loss: The patient is a 65 year-old F who presents for Bariatric Assessment. Patient presents today for sleeve gastrectomy.. She's had some minimal gerd. Past Medical History Past Medical History: Asthma, Cancer, COPD, Diabetes Mellitus, Eye Disorder, GERD/Reflux, Hearing Disorder / Deafness, Hyperlipidemia, Hypertension, Osteoarthritis (OA), Rheumatoid Arthritis (RA), Sleep Apnea/CPAP/BIPAP Additional Past Medical History / Comment(s): Diet controlled diabetic, intermittent heart murmur, hiatal hernia, umbilical hernia. Breast CA with radiation tx. 4 years ago, Vertigo, degenerative disc disease, constipation, kinsey sn't use CPAP, glaucoma History of Any Multi-Drug Resistant Organisms: None Reported Past Surgical History: Bariatric Surgery, Bladder Surgery, Breast Surgery, Cholecystectomy, Heart Catheterization, Hysterectomy, Joint Replacement, Tubal Ligation Additional Past Surgical History / Comment(s): Hx left shoulder replacement, carolann eye surgery for glaucoma. Lt breast bx and Lt breast Lumpectomy. Bladder sling. Lap Band 2011, cataracts removed Past Anesthesia/Blood Transfusion Reactions: No Reported Reaction Past Psychological History: Anxiety, Depression, Panic Disorder Smoking Status: Never smoker Past Alcohol Use History: None Reported Past Drug Use History: None Reported - Past Family History Mother Family Medical History: No Reported History Daughter(s) Family Medical History: Cancer Additional Family Medical History / Comment(s): Colon CA Son(s) Family Medical History: Deep Vein Thrombosis (DVT), Pulmonary Embolus Surgical - Exam Vital Signs Temp Pulse Resp BP 97.8 F 76 18 124/80 07/21/20 13:16 07/21/20 13:16 07/21/20 13:16 07/21/20 13:16 - General well developed, well nourished, no distress - Eyes PERRL - ENT normal pinna - Neck no masses - Respiratory normal expansion - Cardiovascular Rhythm: regular - Abdomen Abdomen: soft, non tender Bariatric Assessment & Plan Plan: Status post sleeve gastrectomy. Patient's GERD is minimal observed. She'll follow-up in 4 weeks. Bariatric Checklist Checklist: Plan: Checklist: EGD: 1. Hiatal hernia: 2. H. Pylori: HgbA1c: Vitamin D: Smoking: Never smoker Primary care physician referral: kut Psychiatry clearance: Cardiology clearance: Sleep study: Diet journal: VTE risk score: VTE risk level: Rehab needs at discharge:
== END | disposition home or self-care (01) ==
LOC: BARWHC3 12:23
PROVIDERS: ATTEND Surgery
DX: Z48.815 Encounter for surgical aftercare following surgery on the digestive system (principal); E66.01 Morbid (severe) obesity due to excess calories; E11.65 Type 2 diabetes mellitus with hyperglycemia; Z68.41 Body mass index [BMI] 40.0-44.9, adult; Z98.84 Bariatric surgery status
CPT/HCPCS: 97803; G0463; 99211

== ENCOUNTER → 2020-08-04 | Outpatient (CLI) | payer MEDICARE, OTHER ==
[2020-08-04 14:02] VITALS: BP 123/82; PULSE 72; RESP 18; TEMP 97.8; BMI 42.5
--- NOTE | 2020-08-04 15:45 | P.HPBAR ---
Bariatric H&P - History & Physicial H&P Date: 08/04/20 History & Physicial: Visit/CC: follow up/ 1 month Patient initial contact: Initial weight: 148.778 kg Initial weight in pounds: 328.00 Height: 5 ft 6 in Initial BMI: 52.9 Last weight: Current weight: 119.431 kg Current weight in pounds: 263.30 Current BMI: 42.5 [place] body weight (based on NIH guidelines): 58.967 kg Excess body weight loss: 32.6% The patient is a 65 year-old F who presents for Bariatric Assessment. Patient presents today for sleeve gastrectomy follow-up. She currently feels well. She's had some mild GERD. Past Medical History Past Medical History: Asthma, Cancer, COPD, Diabetes Mellitus, Eye Disorder, GERD/Reflux, Hearing Disorder / Deafness, Hyperlipidemia, Hypertension, Osteoarthritis (OA), Rheumatoid Arthritis (RA), Sleep Apnea/CPAP/BIPAP Additional Past Medical History / Comment(s): Diet controlled diabetic, intermittent heart murmur, hiatal hernia, umbilical hernia. Breast CA with radiation tx. 4 years ago, Vertigo, degenerative disc disease, constipation, doesn't use CPAP, glaucoma History of Any Multi-Drug Resistant Organisms: None Reported Past Surgical History: Bariatric Surgery, Bladder Surgery, Breast Surgery, Cholecystectomy, Heart Catheterization, Hysterectomy, Joint Replacement, Tubal Ligation Additional Past Surgical History / Comment(s): Hx left shoulder replacement, carolann eye surgery for glaucoma. Lt breast bx and Lt breast Lumpectomy. Bladder sling. Lap Band 2011, cataracts removed Past Anesthesia/Blood Transfusion Reactions: No Reported Reaction Past Psychological History: Anxiety, Depression, Panic Disorder Smoking Status: Never smoker Past Alcohol Use History: None Reported Past Drug Use History: None Reported - Past Family History Mother Family Medical History: No Reported History Daughter(s) Family Medical History: Cancer Additional Family Medical History / Comment(s): Colon CA Son(s) Family Medical History: Deep Vein Thrombosis (DVT), Pulmonary Embolus Surgical - Exam Vital Signs Temp Pulse Resp BP 97.8 F 72 18 123/82 08/04/20 13:36 08/04/20 13:36 08/04/20 13:36 08/04/20 13:36 - General well developed, well nourished, no distress - Eyes PERRL - ENT normal pinna - Neck no masses - Respiratory normal expansion - Cardiovascular Rhythm: regular - Abdomen Abdomen: soft, non tender Bariatric Assessment & Plan Plan: Status post sleeve gastrectomy. Patient did well. Minimal exertion. She'll follow-up in 4 weeks. Bariatric Checklist Checklist: Plan: Checklist: EGD: 1. Hiatal hernia: 2. H. Pylori: HgbA1c: Vitamin D: Smoking: Never smoker Primary care physician referral: kut Psychiatry clearance: Cardiology clearance: Sleep study: Diet journal: VTE risk score: VTE risk level: Rehab needs at discharge:
== END | disposition home or self-care (01) ==
LOC: BARWHC3 13:22
PROVIDERS: ATTEND Surgery
DX: Z48.815 Encounter for surgical aftercare following surgery on the digestive system (principal); Z98.84 Bariatric surgery status
CPT/HCPCS: 99211

== ENCOUNTER → 2020-09-01 | Outpatient (CLI) | payer MEDICARE, OTHER ==
[2020-09-01 15:17] VITALS: BP 126/81; PULSE 63; RESP 16; TEMP 98; BMI 41.4
--- NOTE | 2020-09-02 11:15 | P.HPBAR ---
Bariatric H&P - History & Physicial H&P Date: 09/01/20 History & Physicial: Visit/CC: f/u Patient initial contact: Initial weight: 148.778 kg Initial weight in pounds: 328.00 Height: 5 ft 6 in Initial BMI: 52.9 Last weight: Current weight: 116.573 kg Current weight in pounds: 257.00 Current BMI: 41.4 [place] body weight (based on NIH guidelines): 58.967 kg Excess body weight loss: 35.8% The patient is a 65 year-old F who presents for Bariatric Assessment. Patient presents today for sleeve gastrectomy fall. She's had some mild GERD. She feels well. Past Medical History Past Medical History: Asthma, Cancer, COPD, Diabetes Mellitus, Eye Disorder, GERD/Reflux, Hearing Disorder / Deafness, Hyperlipidemia, Hypertension, Osteoarthritis (OA), Rheumatoid Arthritis (RA), Sleep Apnea/CPAP/BIPAP Additional Past Medical History / Comment(s): Diet controlled diabetic, intermittent heart murmur, hiatal hernia, umbilical hernia. Breast CA with radiation tx. 4 years ago, Vertigo, degenerative disc disease, constipation, doesn't use CPAP, glaucoma History of Any Multi-Drug Resistant Organisms: None Reported Past Surgical History: Bariatric Surgery, Bladder Surgery, Breast Surgery, Cholecystectomy, Heart Catheterization, Hysterectomy, Joint Replacement, Tubal Ligation Additional Past Surgical History / Comment(s): Hx left shoulder replacement, carolann eye surgery for glaucoma. Lt breast bx and Lt breast Lumpectomy. Bladder sling. Lap Band 2011, cataracts removed Past Anesthesia/Blood Transfusion Reactions: No Reported Reaction Past Psychological History: Anxiety, Depression, Panic Disorder Smoking Status: Never smoker Past Alcohol Use History: None Reported Past Drug Use History: None Reported - Past Family History Mother Family Medical History: No Reported History Daughter(s) Family Medical History: Cancer Additional Family Medical History / Comment(s): Colon CA Son(s) Family Medical History: Deep Vein Thrombosis (DVT), Pulmonary Embolus Surgical - Exam Vital Signs Temp Pulse Resp BP 98 F 63 16 126/81 09/01/20 15:14 09/01/20 15:14 09/01/20 15:14 09/01/20 15:14 - General well developed, well nourished, no distress - Eyes PERRL - ENT normal pinna - Neck no masses - Respiratory normal expansion - Cardiovascular Rhythm: regular - Abdomen Abdomen: soft, non tender Bariatric Assessment & Plan Plan: Status post sleeve gastrectomy. Patient's is minimal will be observed. She'll follow-up in 4 weeks. Bariatric Checklist Checklist: Plan: Checklist: EGD: 1. Hiatal hernia: 2. H. Pylori: HgbA1c: Vitamin D: Smoking: Never smoker Primary care physician referral: kut Psychiatry clearance: Cardiology clearance: Sleep study: Diet journal: VTE risk score: VTE risk level: Rehab needs at discharge:
== END | disposition home or self-care (01) ==
LOC: BARWHC3 13:32
PROVIDERS: ATTEND Surgery
DX: Z48.815 Encounter for surgical aftercare following surgery on the digestive system (principal); Z90.49 Acquired absence of other specified parts of digestive tract; Z98.84 Bariatric surgery status
CPT/HCPCS: 99211

== ENCOUNTER → 2020-10-06 | Outpatient (CLI) | payer MEDICARE, OTHER ==
[2020-10-06 14:05] VITALS: BP 132/64; PULSE 63; RESP 18; TEMP 97.2; BMI 39.4
[2020-10-06 15:52] LABS: HCT 48.5 % (34.0-46.0); MCH 30.8 pg (25.0-35.0); MCV 93.1 fL (80.0-100.0); Mean Platelet Volume 7.1; Platelet Count 269 k/uL (150-450); RBC 5.21 m/uL (3.80-5.40); RDW 13.1 % (11.5-15.5); WBC 6.1 k/uL (3.8-10.6)
[2020-10-07 03:34] LABS: African American GFR (CKD) 67.5 (60.0-200.0); Albumin 4.3 g/dL (3.80-4.90); Albumin/Globulin Ratio 1.79 (1.60-3.17); Calcium 9.8 mg/dL (8.7-10.3); Globulin 2.4 g/dL (1.6-3.3); Non-African American GFR(CKD) 58.2 (60.0-200.0); Potassium 4.7 mmol/L (3.5-5.5); Total Bilirubin 0.5 mg/dL (0.2-1.2); Total Protein 6.7 g/dL (6.2-8.2)
[2020-10-07 03:45] LABS: Folate, Serum 7.1 ng/mL
--- NOTE | 2020-10-20 11:37 | P.HPBAR ---
Bariatric H&P - History & Physicial H&P Date: 10/06/20 History & Physicial: Visit/CC: follow up Patient initial contact: Initial weight: 148.778 kg Initial weight in pounds: 328.00 Height: 5 ft 6 in Initial BMI: 52.9 Last weight: Current weight: 110.677 kg Current weight in pounds: 244.00 Current BMI: 39.4 [place] body weight (based on NIH guidelines): 58.967 kg Excess body weight loss: 42.4% The patient is a 65 year-old F who presents for Bariatric Assessment. Patient presents today for sleeve gastrectomy follow-up. She's had some complaints of GERD. She's had excellent weight loss. Past Medical History Past Medical History: Asthma, Cancer, COPD, Diabetes Mellitus, Eye Disorder, GERD/Reflux, Hearing Disorder / Deafness, Hyperlipidemia, Hypertension, Osteoarthritis (OA), Rheumatoid Arthritis (RA), Sleep Apnea/CPAP/BIPAP Additional Past Medical History / Comment(s): Diet controlled diabetic, intermittent heart murmur, hiatal hernia, umbilical hernia. Breast CA with radiation tx. 4 years ago, Vertigo, degenerative disc disease, constipation, doesn't use CPAP, glaucoma History of Any Multi-Drug Resistant Organisms: None Reported Past Surgical History: Bariatric Surgery, Bladder Surgery, Breast Surgery, Cholecystectomy, Heart Catheterization, Hysterectomy, Joint Replacement, Tubal Ligation Additional Past Surgical History / Comment(s): Hx left shoulder replacement, carolann eye surgery for glaucoma. Lt breast bx and Lt breast Lumpectomy. Bladder sling. Lap Band 2011, cataracts removed Past Anesthesia/Blood Transfusion Reactions: No Reported Reaction Past Psychological History: Anxiety, Depression, Panic Disorder Smoking Status: Never smoker Past Alcohol Use History: None Reported Past Drug Use History: None Reported - Past Family History Daughter(s) Family Medical History: Cancer Additional Family Medical History / Comment(s): Colon CA Son(s) Family Medical History: Deep Vein Thrombosis (DVT), Pulmonary Embolus Surgical - Exam Vital Signs Temp Pulse Resp BP 97.2 F L 63 18 132/64 10/06/20 14:01 10/06/20 14:01 10/06/20 14:01 10/06/20 14:01 - General well developed, well nourished, no distress - Eyes PERRL - ENT normal pinna - Neck no masses - Respiratory normal expansion - Cardiovascular Rhythm: regular - Abdomen Abdomen: soft, non tender Results - Labs 10/06/20 15:34 10/06/20 15:34 Bariatric Assessment & Plan Plan: Status post sleeve gastrectomy. Patient's morbid obesity is improving. She'll follow-up in 4 weeks. Her GERD is minimal will be observed. Bariatric Checklist Checklist: Plan: Checklist: EGD: 1. Hiatal hernia: 2. H. Pylori: HgbA1c: Vitamin D: Smoking: Never smoker Primary care physician referral: momo Psychiatry clearance: Cardiology clearance: Sleep study: Diet journal: VTE risk score: VTE risk level: Rehab needs at discharge:
== END | disposition home or self-care (01) ==
LOC: BARWHC3 13:35
PROVIDERS: ATTEND Surgery
DX: Z48.815 Encounter for surgical aftercare following surgery on the digestive system (principal); E66.01 Morbid (severe) obesity due to excess calories; K21.9 Gastro-esophageal reflux disease without esophagitis; Z98.84 Bariatric surgery status; Z90.49 Acquired absence of other specified parts of digestive tract; Z90.710 Acquired absence of both cervix and uterus; E11.65 Type 2 diabetes mellitus with hyperglycemia; E44.0 Moderate protein-calorie malnutrition; E55.9 Vitamin D deficiency, unspecified; Z68.39 Body mass index [BMI] 39.0-39.9, adult
CPT/HCPCS: 84425; 80053; 82607; 82746; 84443; 85027; 82306; 97803; 36415; G0463; 99211

== ENCOUNTER → 2020-11-03 | Outpatient (CLI) | payer MEDICARE, OTHER ==
[2020-11-03 14:15] VITALS: BP 112/73; PULSE 69; RESP 18; TEMP 97.4; BMI 38.4
--- NOTE | 2020-11-10 15:56 | P.HPBAR ---
Bariatric H&P - History & Physicial H&P Date: 11/03/20 History & Physicial: Visit/CC: follow up Patient initial contact: Initial weight: 148.778 kg Initial weight in pounds: 328.00 Height: 5 ft 6 in Initial BMI: 52.9 Last weight: Current weight: 107.955 kg Current weight in pounds: 238.00 Current BMI: 38.4 [place] body weight (based on NIH guidelines): 58.967 kg Excess body weight loss: 45.4% The patient is a 65 year-old F who presents for Bariatric Assessment. Patient presents today for sleeve gastrectomy. Her she's had some mild GERD. She's had excellent weight loss. Past Medical History Past Medical History: Asthma, Cancer, COPD, Diabetes Mellitus, Eye Disorder, GERD/Reflux, Hearing Disorder / Deafness, Hyperlipidemia, Hypertension, Osteoarthritis (OA), Rheumatoid Arthritis (RA), Sleep Apnea/CPAP/BIPAP Additional Past Medical History / Comment(s): Diet controlled diabetic, intermittent heart murmur, hiatal hernia, umbilical hernia. Breast CA with radiation tx. 4 years ago, Vertigo, degenerative disc disease, constipation, doesn't use CPAP, glaucoma History of Any Multi-Drug Resistant Organisms: None Reported Past Surgical History: Bariatric Surgery, Bladder Surgery, Breast Surgery, Cholecystectomy, Heart Catheterization, Hysterectomy, Joint Replacement, Tubal Ligation Additional Past Surgical History / Comment(s): Hx left shoulder replacement, carolann eye surgery for glaucoma. Lt breast bx and Lt breast Lumpectomy. Bladder sling. Lap Band 2011, cataracts removed Past Anesthesia/Blood Transfusion Reactions: No Reported Reaction Past Psychological History: Anxiety, Depression, Panic Disorder Smoking Status: Never smoker Past Alcohol Use History: None Reported Past Drug Use History: None Reported - Past Family History Daughter(s) Family Medical History: Cancer Additional Family Medical History / Comment(s): Colon CA Son(s) Family Medical History: Deep Vein Thrombosis (DVT), Pulmonary Embolus Surgical - Exam Vital Signs Temp Pulse Resp BP 97.4 F L 69 18 112/73 11/03/20 14:09 11/03/20 14:09 11/03/20 14:09 11/03/20 14:09 - General well developed, well nourished, no distress - Eyes PERRL - ENT normal pinna - Neck no masses - Respiratory normal expansion - Cardiovascular Rhythm: regular - Abdomen Abdomen: soft, non tender Bariatric Assessment & Plan Plan: Status post sleeve gastrectomy. Patient's girth minimal we will observe her to follow-up in 4 weeks. Bariatric Checklist Checklist: Plan: Checklist: EGD: 1. Hiatal hernia: 2. H. Pylori: HgbA1c: Vitamin D: Smoking: Never smoker Primary care physician referral: kut Psychiatry clearance: Cardiology clearance: Sleep study: Diet journal: VTE risk score: VTE risk level: Rehab needs at discharge:
== END ==
LOC: BARWHC3 13:13
PROVIDERS: ATTEND Surgery
DX: Z98.84 Bariatric surgery status (principal); Z46.51 Encounter for fitting and adjustment of gastric lap band; M19.90 Unspecified osteoarthritis, unspecified site; I10 Essential (primary) hypertension; E78.5 Hyperlipidemia, unspecified; J44.9 Chronic obstructive pulmonary disease, unspecified; E11.9 Type 2 diabetes mellitus without complications; K21.9 Gastro-esophageal reflux disease without esophagitis; F32.9 Major depressive disorder, single episode, unspecified; F41.9 Anxiety disorder, unspecified
CPT/HCPCS: 99211

== ENCOUNTER → 2020-12-08 | Outpatient (CLI) | payer MEDICARE, OTHER ==
[2020-12-08 14:00] VITALS: BP 126/78; PULSE 77; RESP 18; TEMP 98.4; BMI 37.8
--- NOTE | 2020-12-08 14:06 | P.HPBAR ---
Bariatric H&P - History & Physicial H&P Date: 12/08/20 History & Physicial: Visit/CC: follow up Patient initial contact: Initial weight: 148.778 kg Initial weight in pounds: 328.00 Height: 5 ft 6 in Initial BMI: 52.9 Last weight: Current weight: 106.141 kg Current weight in pounds: 234.00 Current BMI: 37.8 [place] body weight (based on NIH guidelines): 58.967 kg Excess body weight loss: 47.4% The patient is a 65 year-old F who presents for Bariatric Assessment. Patient presents today for sleeve gastric her fall. She's had some issues with GERD. She's lost about 4 pounds. Past Medical History Past Medical History: Asthma, Cancer, COPD, Diabetes Mellitus, Eye Disorder, GERD/Reflux, Hearing Disorder / Deafness, Hyperlipidemia, Hypertension, Osteoarthritis (OA), Rheumatoid Arthritis (RA), Sleep Apnea/CPAP/BIPAP Additional Past Medical History / Comment(s): Diet controlled diabetic, intermittent heart murmur, hiatal hernia, umbilical hernia. Breast CA with radiation tx. 4 years ago, Vertigo, degenerative disc disease, constipation, doesn't use CPAP, glaucoma History of Any Multi-Drug Resistant Organisms: None Reported Past Surgical History: Bariatric Surgery, Bladder Surgery, Breast Surgery, Cholecystectomy, Heart Catheterization, Hysterectomy, Joint Replacement, Tubal Ligation Additional Past Surgical History / Comment(s): Hx left shoulder replacement, carolann eye surgery for glaucoma. Lt breast bx and Lt breast Lumpectomy. Bladder sling. Lap Band 2011, cataracts removed Past Anesthesia/Blood Transfusion Reactions: No Reported Reaction Past Psychological History: Anxiety, Depression, Panic Disorder Smoking Status: Never smoker Past Alcohol Use History: None Reported Past Drug Use History: None Reported - Past Family History Daughter(s) Family Medical History: Cancer Additional Family Medical History / Comment(s): Colon CA Son(s) Family Medical History: Deep Vein Thrombosis (DVT), Pulmonary Embolus Surgical - Exam Vital Signs Temp Pulse Resp BP 98.4 F 77 18 126/78 12/08/20 13:57 12/08/20 13:57 12/08/20 13:57 12/08/20 13:57 - General well developed, well nourished, no distress - Eyes PERRL - ENT normal pinna - Neck no masses - Respiratory normal expansion - Cardiovascular Rhythm: regular - Abdomen Abdomen: soft, non tender Bariatric Assessment & Plan Plan: Status post sleeve gastrectomy. Patient is doing quite well. Her GERD is minimal observed. She'll follow-up in 4 weeks. Bariatric Checklist Checklist: Plan: Checklist: EGD: 1. Hiatal hernia: 2. H. Pylori: HgbA1c: Vitamin D: Smoking: Never smoker Primary care physician referral: kurosalba Psychiatry clearance: Cardiology clearance: Sleep study: Diet journal: VTE risk score: VTE risk level: Rehab needs at discharge:
== END ==
LOC: BARWHC3 13:33
PROVIDERS: ATTEND Surgery
DX: E66.01 Morbid (severe) obesity due to excess calories (principal); Z68.37 Body mass index [BMI] 37.0-37.9, adult; Z98.84 Bariatric surgery status; Z46.51 Encounter for fitting and adjustment of gastric lap band; J44.9 Chronic obstructive pulmonary disease, unspecified; E11.9 Type 2 diabetes mellitus without complications; K21.9 Gastro-esophageal reflux disease without esophagitis; E78.5 Hyperlipidemia, unspecified; I10 Essential (primary) hypertension
CPT/HCPCS: 99211

== ENCOUNTER → 2021-01-05 | Outpatient (CLI) | payer MEDICARE, OTHER ==
[2021-01-05 14:18] VITALS: BP 144/82; PULSE 88; TEMP 98.2; BMI 37.3
[2021-01-05 15:20] LABS: HCT 46.8 % (34.0-46.0); HGB 15.6 gm/dL (11.4-16.0); MCH 30.3 pg (25.0-35.0); MCHC 33.2 g/dL (31.0-37.0); MCV 91.2 fL (80.0-100.0); Platelet Count 308 k/uL (150-450); RBC 5.13 m/uL (3.80-5.40); RDW 12.5 % (11.5-15.5); WBC 6.5 k/uL (3.8-10.6)
--- NOTE | 2021-01-05 15:21 | P.HPBAR ---
Bariatric H&P - History & Physicial H&P Date: 01/05/21 History & Physicial: Visit/CC: six month follow up Patient initial contact: Initial weight: 148.778 kg Initial weight in pounds: 328.00 Height: 5 ft 6 in Initial BMI: 52.9 Last weight: Current weight: 104.78 kg Current weight in pounds: 231.00 Current BMI: 37.3 [place] body weight (based on NIH guidelines): 58.967 kg Excess body weight loss: 48.9% The patient is a 66 year-old F who presents for Bariatric Assessment. Patient presents today for sleeve gastrectomy follow-up. Her weight has been stable. His last 3 pounds her last visit. She has had some minimal GERD. Past Medical History Past Medical History: Asthma, Cancer, COPD, Diabetes Mellitus, Eye Disorder, GERD/Reflux, Hearing Disorder / Deafness, Hyperlipidemia, Hypertension, Osteoarthritis (OA), Rheumatoid Arthritis (RA), Sleep Apnea/CPAP/BIPAP Additional Past Medical History / Comment(s): Diet controlled diabetic, intermittent heart murmur, hiatal hernia, umbilical hernia. Breast CA with ra diation tx. 4 years ago, Vertigo, degenerative disc disease, constipation, doesn't use CPAP, glaucoma History of Any Multi-Drug Resistant Organisms: None Reported Past Surgical History: Bariatric Surgery, Bladder Surgery, Breast Surgery, Cholecystectomy, Heart Catheterization, Hysterectomy, Joint Replacement, Tubal Ligation Additional Past Surgical History / Comment(s): Hx left shoulder replacement, carolann eye surgery for glaucoma. Lt breast bx and Lt breast Lumpectomy. Bladder sling. Lap Band 2011, cataracts removed Past Anesthesia/Blood Transfusion Reactions: No Reported Reaction Past Psychological History: Anxiety, Depression, Panic Disorder Smoking Status: Never smoker Past Alcohol Use History: None Reported Past Drug Use History: None Reported - Past Family History Daughter(s) Family Medical History: Cancer Additional Family Medical History / Comment(s): Colon CA Son(s) Family Medical History: Deep Vein Thrombosis (DVT), Pulmonary Embolus Surgical - Exam Vital Signs Temp Pulse BP 98.2 F 88 144/82 01/05/21 14:16 01/05/21 14:16 01/05/21 14:16 - General well developed, well nourished, no distress - Eyes PERRL - ENT normal pinna - Neck no masses - Respiratory normal expansion - Cardiovascular Rhythm: regular - Abdomen Abdomen: soft, non tender Bariatric Assessment & Plan Plan: She is GERD is minimal old observed. She's had excellent weight loss. She'll follow-up in 4 weeks. Bariatric Checklist Checklist: Plan: Checklist: EGD: 1. Hiatal hernia: 2. H. Pylori: HgbA1c: Vitamin D: Smoking: Never smoker Primary care physician referral: kut Psychiatry clearance: Cardiology clearance: Sleep study: Diet journal: VTE risk score: VTE risk level: Rehab needs at discharge:
[2021-01-05 21:08] LABS: % Iron Saturation 26.95 (12.00-45.00); African American GFR (CKD) 76.1 (60.0-200.0); Albumin/Globulin Ratio 1.38 (1.60-3.17); Anion Gap 7.5 mmol/L (4.00-12.00); BUN/Creat Ratio 15.56 Ratio (12.00-20.00); Calcium 9.4 mg/dL (8.7-10.3); Carbon Dioxide 27.5 mmol/L (21.6-31.8); Globulin 2.9 g/dL (1.6-3.3); Magnesium 1.8 mg/dL (1.5-2.4); Non-African American GFR(CKD) 65.7 (60.0-200.0); Potassium 4.2 mmol/L (3.5-5.5); Total Bilirubin 0.6 mg/dL (0.2-1.2); Total Protein 6.9 g/dL (6.2-8.2)
[2021-01-05 21:17] LABS: Ferritin 99.5 ng/mL (10.0-291.0); Folate, Serum 8.3 ng/mL
[2021-01-06 13:35] LABS: Zinc, Serum 64 ug/dL (60-130)
[2021-01-07 06:27] LABS: Vitamin A 38 ug/dL (38-106)
[2021-01-07 06:49] LABS: Vit B1(Thiamine) 56 ug/L (38-122)
== END ==
LOC: BARWHC3 13:45
PROVIDERS: ATTEND Surgery
DX: Z09 Encounter for follow-up examination after completed treatment for conditions other than malignant neoplasm (principal); K21.9 Gastro-esophageal reflux disease without esophagitis; J44.9 Chronic obstructive pulmonary disease, unspecified; E11.9 Type 2 diabetes mellitus without complications; E78.5 Hyperlipidemia, unspecified; I10 Essential (primary) hypertension; M19.90 Unspecified osteoarthritis, unspecified site; F32.9 Major depressive disorder, single episode, unspecified; F41.0 Panic disorder [episodic paroxysmal anxiety]; M06.9 Rheumatoid arthritis, unspecified; Z98.84 Bariatric surgery status
CPT/HCPCS: 84255; 84425; 80053; 82607; 82728; 82746; 83540; 83550; 83735; 84590; 84630; 85027; 82306; G0463; 99211

== ENCOUNTER → 2021-03-09 | Outpatient (CLI) | payer MEDICARE, OTHER ==
[2021-03-09 14:11] VITALS: RESP 16; TEMP 98.4; BMI 36.3
[2021-03-09 14:20] VITALS: BP 119/79; PULSE 76
--- NOTE | 2021-03-09 16:01 | P.HPBAR ---
Bariatric H&P - History & Physicial H&P Date: 03/09/21 History & Physicial: Visit/CC: f/u Patient initial contact: Initial weight: 148.778 kg Initial weight in pounds: 328.00 Height: 5 ft 6 in Initial BMI: 52.9 Last weight: Current weight: 102.058 kg Current weight in pounds: 225.00 Current BMI: 36.3 [place] body weight (based on NIH guidelines): 58.967 kg Excess body weight loss: 52.0% The patient is a 66 year-old F who presents for Bariatric Assessment. Patient resents today for sleeve gastrectomy follow-up. She's had some minimal GERD. Past Medical History Past Medical History: Asthma, Cancer, COPD, Diabetes Mellitus, Eye Disorder, GERD/Reflux, Hearing Disorder / Deafness, Hyperlipidemia, Hypertension, Osteoarthritis (OA), Rheumatoid Arthritis (RA), Sleep Apnea/CPAP/BIPAP Additional Past Medical History / Comment(s): Diet controlled diabetic, intermittent heart murmur, hiatal hernia, umbilical hernia. Breast CA with radiation tx. 4 years ago, Vertigo, degenerative disc disease, constipation, doesn't use CPAP, glaucoma History of Any Multi-Drug Resistant Organisms: None Reported Past Surgical History: Bariatric Surgery, Bladder Surgery, Breast Surgery, Cholecystectomy, Heart Catheterization, Hysterectomy, Joint Replacement, Tubal Ligation Additional Past Surgical History / Comment(s): Hx left shoulder replacement, carolann eye surgery for glaucoma. Lt breast bx and Lt breast Lumpectomy. Bladder sling. Lap Band 2011, cataracts removed Past Anesthesia/Blood Transfusion Reactions: No Reported Reaction Past Psychological History: Anxiety, Depression, Panic Disorder Smoking Status: Never smoker Past Alcohol Use History: None Reported Past Drug Use History: None Reported - Past Family History Daughter(s) Family Medical History: Cancer Additional Family Medical History / Comment(s): Colon CA Son(s) Family Medical History: Deep Vein Thrombosis (DVT), Pulmonary Embolus Surgical - Exam Vital Signs Temp Pulse Resp BP 98.4 F 76 16 119/79 03/09/21 14:09 03/09/21 14:09 03/09/21 14:09 03/09/21 14:09 - General well developed, well nourished, no distress - Eyes PERRL - ENT normal pinna - Abdomen Abdomen: soft, non tender Bariatric Assessment & Plan Plan: Patient's doing quite well. Her GERD is minimal temperature follow-up in 4 weeks. Bariatric Checklist Checklist: Plan: Checklist: EGD: 1. Hiatal hernia: 2. H. Pylori: HgbA1c: Vitamin D: Smoking: Never smoker Primary care physician referral: momo Psychiatry clearance: Cardiology clearance: Sleep study: Diet journal: VTE risk score: VTE risk level: Rehab needs at discharge:
== END ==
LOC: BARWHC3 13:23
PROVIDERS: ATTEND Surgery
DX: Z09 Encounter for follow-up examination after completed treatment for conditions other than malignant neoplasm (principal); K21.9 Gastro-esophageal reflux disease without esophagitis; J44.9 Chronic obstructive pulmonary disease, unspecified; E11.9 Type 2 diabetes mellitus without complications; E78.5 Hyperlipidemia, unspecified; I10 Essential (primary) hypertension; M19.90 Unspecified osteoarthritis, unspecified site; M06.9 Rheumatoid arthritis, unspecified; F41.0 Panic disorder [episodic paroxysmal anxiety]; F41.9 Anxiety disorder, unspecified; F32.9 Major depressive disorder, single episode, unspecified; Z91.09 Other allergy status, other than to drugs and biological substances
CPT/HCPCS: 99211

== ENCOUNTER 2021-10-30 11:56 | Day surgery (SDC) | payer MEDICARE, OTHER ==
[2021-10-29 08:48] VITALS: BMI 35.5
--- NOTE | 2021-10-29 19:20 | HP ---
HISTORY AND PHYSICAL CHIEF COMPLAINT: Fluid in both ears. HISTORY OF PRESENT ILLNESS: This patient is a 66-year-old female who was recently seen in my office complaining of having both ears being plugged. The patient states that her ears have been plugged for at least the past 3 or 4 months. At the time that she was seen in my office, clinical examination of the ears revealed chronic bilateral serous otitis media, so-called glue ear. It was recommended that the patient undergo a bilateral myringotomy with insertion of ventilation tubes under IV sedation with M.A.C. PAST MEDICAL HISTORY: Reveals the patient has no known allergies. CURRENT MEDICATIONS: Her current medications include Celexa, Prilosec, Xanax, lisinopril. Antivert, Arimidex. PREVIOUS SURGERIES: Include bilateral myringotomy with insertion of ventilation tubes x1, shoulder surgery, cholecystectomy, hysterectomy, lap band surgery. REVIEW OF SYSTEMS: Cardiovascular system is positive for hypertension. Gastrointestinal system is positive for GERD (gastroesophageal reflux disorder). Metabolic endocrine system is positive for type 2 diabetes mellitus. The remainder of the review of systems is unremarkable. PHYSICAL EXAMINATION: This patient is a 66-year-old female who was alert and cooperative. HEENT examination: The patient is normocephalic. Both tympanic membranes are dull with evidence of fluid in both middle ear spaces. Pupils equal, round, react to light and accommodation. Extraocular movements within normal limits. Intranasal examination reveals moderate to severe septal deviation with compensatory hypertrophy of inferior turbinates. Examination of oropharynx, cranial nerves 2 through 12 and remainder of the head and neck exam is unremarkable. Chest/cardiovascular: Both lung carr are clear to percussion and auscultation. The patient is in regular sinus rhythm. S1 and S2 are present without evidence of any murmurs, S3s or S4s. Peripheral pulses are bilaterally symmetrical. Abdomen: There is no evidence any masses, megaly or tenderness. The abdomen is soft. Skin is unremarkable. Musculoskeletal and neurological are within normal limits. Pelvic/rectal exam is deferred at this time because the patient has this done on a regular basis at her family physician's office. The remainder of physical exam is essentially unremarkable. IMPRESSION: Chronic bilateral serous otitis media. PLAN: The patient is scheduled to undergo a bilateral myringotomy with insertion of Andres T- type ventilation tubes on IV sedation. Attention RNs in the pre-surgical area, I have not ordered any pre-surgical prophylactic antibiotics for this patient. If the pharmacy department sends any pre- surgical prophylactic antibiotics to the pre-surgical area for this patient, please cancel that order and return the medications to the to the pharmacy department. Also make sure that the patient's account is credited appropriately. I have discussed the risks, benefits and alternative therapies for the above-mentioned procedure and for both sedation/analgesia as well as necessary blood product administration, if indicated, as they pertain to this patient. The patient has indicated his or her understanding and acceptance of the risks and procedures discussed. MMODL / IJN: [id number] /
[~2021-10-30 11:56] MED LIST changes: +DEXAMETHASONE SOD PHOSPHATE 4 MG/ML 1 ML VIAL IV ONE; -ENOXAPARIN 40 MG/0.4 ML SYRINGE SQ ONE; +LACTATED RINGERS 1,000 ML IV SCH; +Pre Op ABX Message 1 EACH MISC MISCELLANE ONE; -ceFAZolin 3 GM in SODIUM CHLORIDE 0.9% 100 ML IVPB ONE; -fentaNYL (PF) 50 MCG/ML 2 ML AMP IV PRN
[2021-10-30 12:56] VITALS: TEMP 97.4
[2021-10-30] MEDS ORDERED: DEXAMETHASONE SOD PHOSPHATE 4 MG/ML 1 ML VIAL IVP ONE (13:11)
[2021-10-30] MEDS ORDERED: ONDANSETRON 4 MG/2 ML VIAL IVP ONE (13:11)
[2021-10-30 13:17] LABS: Glucose,Whole Blood 80 mg/dL (75-99)
[2021-10-30] MEDS ORDERED: MIDAZOLAM 2 MG/2 ML VIAL ONE (13:25)
[2021-10-30] MEDS ORDERED: LIDOCAINE 1% INJ 10MG/ML (20 ML MDV) ONE (13:25)
[2021-10-30] MEDS ORDERED: PROPOFOL 10 MG/ML 20 ML VIAL IV ONE (13:25)
[2021-10-30] MEDS ORDERED: fentaNYL (PF) 50 MCG/ML 2 ML AMP ONE (13:25)
[2021-10-30] MEDS ORDERED: OFLOXACIN 0.3% OPHTH DROPS 5 ML BOTTLE BOTH EARS ONE (13:38)
[2021-10-30 14:28] VITALS: RESP 16
[2021-10-30 15:53] VITALS: BP 109/70; PULSE 62
--- NOTE | 2021-11-03 08:16 | OP ---
OPERATIVE REPORT DATE OF SURGERY: 10/30/2021 PREOPERATIVE DIAGNOSIS: Chronic bilateral serous otitis media. POSTOPERATIVE DIAGNOSIS: Chronic bilateral serous otitis media. ANESTHESIA: IV sedation with M.A.C. OPERATIVE PROCEDURE: Bilateral myringotomy with insertion of Andres type T-tubes. OPERATING SURGEON: Dr. Blackmon. COMPLICATIONS: None. PROCEDURE DESCRIPTION: The patient was placed on the Operating table in the supine position after uneventful induction and IV sedation, satisfactory general anesthesia was obtained. Next, the operating microscope was brought into position over the patient's right ear where after insertion of a #3 aural speculum, the external canal was cleansed of all wax and debris. The myringotomy knife was used to make an incision in the anterior inferior quadrant of the right tympanic membrane. The middle ear space was suctioned free of all fluid and a 1.1 mm Russell bobbin ventilation tube was inserted without any difficulty. Attention was then directed to the left ear where the same procedure was carried out using the operating microscope, #3 aural speculum, the external auditory canal was cleansed of all wax and debris. The myringotomy knife was used to make an incision in the anterior inferior quadrant of the left tympanic membrane and the middle ear space was suctioned free of all fluid. A 1.1 mm Russell bobbin ventilation tube was inserted without any difficulty. At this point, the procedure was terminated. There were no intraoperative complications. The patient tolerated the procedure well and was returned to the Recovery Room in satisfactory condition. MMODL / IJN: [id number] /
== END 2021-10-30 16:30 | disposition home or self-care (01) ==
LOC: OR 11:56
PROVIDERS: ATTEND Otolaryngology
DX: H65.23 Chronic serous otitis media, bilateral (principal); I10 Essential (primary) hypertension; K21.9 Gastro-esophageal reflux disease without esophagitis; E11.9 Type 2 diabetes mellitus without complications; E78.5 Hyperlipidemia, unspecified; J44.9 Chronic obstructive pulmonary disease, unspecified; J45.909 Unspecified asthma, uncomplicated; G47.33 Obstructive sleep apnea (adult) (pediatric); H81.20 Vestibular neuronitis, unspecified ear; N64.4 Mastodynia
CPT/HCPCS: 69436; J2250; J1100; J2405; J2001; J3010; J2704

== ENCOUNTER → 2021-12-14 | Outpatient (CLI) | payer MEDICARE, OTHER ==
[2021-12-14 14:58] VITALS: BP 121/75; PULSE 80; RESP 16; TEMP 98; BMI 38.0
--- NOTE | 2021-12-14 15:50 | P.HPBAR ---
Bariatric H&P - History & Physicial H&P Date: 12/14/21 History & Physicial: Visit/CC: sleeve f/u Patient initial contact: Initial weight: 148.778 kg Initial weight in pounds: 328.00 Height: 5 ft 6 in Initial BMI: 52.9 Last weight: Current weight: 107.048 kg Current weight in pounds: 236.00 Current BMI: 38.0 [place] body weight (based on NIH guidelines): 58.967 kg Excess body weight loss: 46.4% The patient is a 66 year-old F who presents for Bariatric Assessment. Patient has mild complaints of GERD. She's had a weight gain. Past Medical History Past Medical History: Asthma, Cancer, COPD, Diabetes Mellitus, Eye Disorder, GERD/Reflux, Hearing Disorder / Deafness, Hyperlipidemia, Hypertension, Osteoarthritis (OA), Rheumatoid Arthritis (RA), Sleep Apnea/CPAP/BIPAP Additional Past Medical History / Comment(s): Diet controlled diabetic, intermittent heart murmur, hiatal hernia, umbilical hernia. Breast CA with radiation tx. , Vertigo, degenerative disc disease, constipation, doesn't use CPAP, glaucoma History of Any Multi-Drug Resistant Organisms: None Reported Past Surgical History: Bariatric Surgery, Bladder Surgery, Breast Surgery, Cholecystectomy, Heart Catheterization, Hysterectomy, Joint Replacement, Tubal Ligation Additional Past Surgical History / Comment(s): Hx left shoulder replacement, carolann eye surgery for glaucoma. Lt breast bx and Lt breast Lumpectomy. Bladder sling. Lap Band 2011, cataracts removed, tubes in ears Past Anesthesia/Blood Transfusion Reactions: No Reported Reaction Past Psychological History: Anxiety, Depression, Panic Disorder Smoking Status: Never smoker Past Alcohol Use History: None Reported Past Drug Use History: None Reported - Past Family History Daughter(s) Family Medical History: Cancer Additional Family Medical History / Comment(s): Colon CA Son(s) Family Medical History: Deep Vein Thrombosis (DVT), Pulmonary Embolus Surgical - Exam Vital Signs Temp Pulse Resp BP 98 F 80 16 121/75 12/14/21 14:52 12/14/21 14:52 12/14/21 14:52 12/14/21 14:52 - General well developed, well nourished, no distress - Eyes PERRL - ENT normal pinna - Neck no masses - Respiratory normal expansion - Cardiovascular Rhythm: regular - Abdomen Abdomen: soft, non tender Bariatric Assessment & Plan Plan: Status post sleeve gastrectomy. Patient's GERD is minimal and will be observed. Patient was given dietary counseling her to have reduction in excess calories. Bariatric Checklist Checklist: Plan: Checklist: EGD: 1. Hiatal hernia: 2. H. Pylori: HgbA1c: Vitamin D: Smoking: Never smoker Primary care physician referral: kut Psychiatry clearance: Cardiology clearance: Sleep study: Diet journal: VTE risk score: VTE risk level: Rehab needs at discharge:
== END ==
LOC: BARWHC3 14:23
PROVIDERS: ATTEND Surgery
DX: Z09 Encounter for follow-up examination after completed treatment for conditions other than malignant neoplasm (principal); K21.9 Gastro-esophageal reflux disease without esophagitis; Z98.84 Bariatric surgery status; J44.9 Chronic obstructive pulmonary disease, unspecified; E11.9 Type 2 diabetes mellitus without complications; I10 Essential (primary) hypertension; E78.5 Hyperlipidemia, unspecified; M19.90 Unspecified osteoarthritis, unspecified site; M06.9 Rheumatoid arthritis, unspecified; F32.A Depression, unspecified; F41.0 Panic disorder [episodic paroxysmal anxiety]; Z91.09 Other allergy status, other than to drugs and biological substances
CPT/HCPCS: 99211

== ENCOUNTER 2022-02-11 07:03 | Day surgery (SDC) | payer MEDICARE, OTHER ==
[2022-02-09 15:42] VITALS: BMI 36.3
[2022-02-11] MEDS ORDERED: LACTATED RINGERS 1,000 ML IV SCH (07:16)
[2022-02-11 07:27] VITALS: TEMP 96.8
[2022-02-11 07:37] LABS: Glucose,Whole Blood 79 mg/dL (70-110)
[2022-02-11] MEDS ORDERED: PROPOFOL 10 MG/ML 20 ML VIAL IV ONE (07:56)
--- NOTE | 2022-02-11 08:03 | P.GSHP ---
History of Present Illness H&P Date: 02/11/22 Chief Complaint: History of colon polyps Is a 67-year-old female with previous history of colon polyps. Patient presents today for colonoscopy. Past Medical History Past Medical History: Asthma, Cancer, COPD, Diabetes Mellitus, Eye Disorder, GERD/Reflux, Hearing Disorder / Deafness, Hyperlipidemia, Hypertension, Osteoarthritis (OA), Rheumatoid Arthritis (RA), Sleep Apnea/CPAP/BIPAP Additional Past Medical History / Comment(s): Diet controlled diabetic, intermittent heart murmur, hiatal hernia, umbilical hernia. Breast CA with radiation tx. , Vertigo, degenerative disc disease, constipation, doesn't use CPAP, glaucoma History of Any Multi-Drug Resistant Organisms: None Reported Past Surgical History: Bariatric Surgery, Bladder Surgery, Breast Surgery, Cholecystectomy, Heart Catheterization, Hysterectomy, Joint Replacement, Tubal Ligation Additional Past Surgical History / Comment(s): Hx left shoulder replacement, carolann eye surgery for glaucoma. Lt breast bx and Lt breast Lumpectomy. Bladder sling. Lap Band 2011, cataracts removed, tubes in ears Past Anesthesia/Blood Transfusion Reactions: No Reported Reaction Smoking Status: Never smoker - Past Family History Daughter(s) Family Medical History: Cancer Additional Family Medical History / Comment(s): Colon CA Son(s) Family Medical History: Deep Vein Thrombosis (DVT), Pulmonary Embolus Medications and Allergies Home Medications Medication Instructions Recorded Confirmed Type Cholecalciferol [Vitamin D3 (25 2,000 unit PO QAM 03/17/16 02/09/22 History Mcg = 1000 Iu)] Meclizine [Antivert] 25 mg PO TID PRN 09/23/16 02/09/22 History lisinopriL [Zestril] 10 mg PO QAM 09/23/16 02/09/22 History Ascorbic Acid [Vitamin C] 500 mg PO DAILY 06/08/19 02/09/22 History Citalopram Hydrobromide [CeleXA] 20 mg PO DAILY 06/08/19 02/09/22 History Omeprazole [PriLOSEC] 20 mg PO DAILY 09/01/20 02/09/22 History Aspirin 81 mg PO DAILY 10/29/21 02/09/22 History Cetirizine HCl [Zyrtec] 10 mg PO DAILY 02/09/22 02/09/22 History Allergies Allergy/AdvReac Type Severity Reaction Status Date / Time cigarette smoke Allergy Dyspnea, Verified 02/11/22 07:23 congestion nylon Allergy Itching Verified 02/11/22 07:23 wool Allergy Itching Verified 02/11/22 07:23 HAYFEVER Allergy CONGESTION Uncoded 02/11/22 07:23 Surgical - Exam Vital Signs Temp Pulse Resp BP Pulse Ox 96.8 F L 57 L 20 145/63 99 02/11/22 07:26 02/11/22 07:26 02/11/22 07:26 02/11/22 07:26 02/11/22 07:26 - General well developed, well nourished, no distress - Eyes PERRL - ENT normal pinna - Neck no masses - Respiratory normal expansion - Cardiovascular Rhythm: regular - Abdomen Abdomen: soft, non tender Assessment and Plan Assessment: History of colon polyps. We'll perform colonoscopy.
--- NOTE | 2022-02-11 08:18 | P.OP ---
Date of Procedure: 02/11/22 Preoperative Diagnosis: History of colon polyps Postoperative Diagnosis: Diverticulosis Procedure(s) Performed: Colonoscopy Anesthesia: MAC Surgeon: Justin Orourke Pathology: none sent Condition: stable Disposition: PACU Description of Procedure: The patient's placed on the endoscopy table in the lateral position. He received IV sedation. Digital rectal exam was performed. This revealed no abnormalities. The flexible colonoscope was then placed patient anus and passed throughout the colon. Scope could not be placed the cecum sigmoid tortuosity valve. This point scope withdrawn. The distal ascending colon appeared normal. In the transverse and descending colon there is mild diverticular changes. Scope was then brought back and sigmoid colon and some diverticula were seen. The scope was brought back the rectum and this appeared normal. Scope withdrawn for patient.
[2022-02-11 08:22] VITALS: RESP 16
[2022-02-11 08:53] VITALS: BP 111/74; PULSE 54
== END 2022-02-11 09:26 | disposition home or self-care (01) ==
LOC: ORWHC2ENDO 07:03
PROVIDERS: ATTEND Surgery
DX: K57.30 Diverticulosis of large intestine without perforation or abscess without bleeding (principal); Z86.010 Personal history of colon polyps; J44.9 Chronic obstructive pulmonary disease, unspecified; E11.69 Type 2 diabetes mellitus with other specified complication; E78.5 Hyperlipidemia, unspecified; K21.9 Gastro-esophageal reflux disease without esophagitis; H91.90 Unspecified hearing loss, unspecified ear; I10 Essential (primary) hypertension; G47.33 Obstructive sleep apnea (adult) (pediatric); M19.90 Unspecified osteoarthritis, unspecified site; M06.9 Rheumatoid arthritis, unspecified; R01.1 Cardiac murmur, unspecified; Z85.3 Personal history of malignant neoplasm of breast; Z98.84 Bariatric surgery status; Z90.49 Acquired absence of other specified parts of digestive tract; Z80.0 Family history of malignant neoplasm of digestive organs; Z82.49 Family history of ischemic heart disease and other diseases of the circulatory system; Z79.82 Long term (current) use of aspirin; Z79.899 Other long term (current) drug therapy; Z91.09 Other allergy status, other than to drugs and biological substances
CPT/HCPCS: 45378; J2704

== ENCOUNTER → 2022-02-15 | Outpatient (CLI) | payer MEDICARE, OTHER ==
[2022-02-15 13:38] VITALS: BP 114/69; PULSE 69; TEMP 97.8; BMI 37.3
--- NOTE | 2022-02-26 11:24 | P.HPBAR ---
Bariatric H&P - History & Physicial H&P Date: 02/15/22 History & Physicial: Visit/CC: gastric sleeve f/u Patient initial contact: Initial weight: 148.778 kg Initial weight in pounds: 328.00 Height: 5 ft 6 in Initial BMI: 52.9 Last weight: Current weight: 104.78 kg Current weight in pounds: 231.00 Current BMI: 37.3 [place] body weight (based on NIH guidelines): 58.967 kg Excess body weight loss: 48.9% The patient is a 67 year-old F who presents for Bariatric Assessment. Patient presents today for bariatric follow. She's had some myoclonus of GERD. She's had improvement weight loss. Past Medical History Past Medical History: Asthma, Cancer, COPD, Diabetes Mellitus, Eye Disorder, GERD/Reflux, Hearing Disorder / Deafness, Hyperlipidemia, Hypertension, Osteoarthritis (OA), Rheumatoid Arthritis (RA), Sleep Apnea/CPAP/BIPAP Additional Past Medical History / Comment(s): Diet controlled diabetic, intermittent heart murmur, hiatal hernia, umbilical hernia. Breast CA with radiation tx. , Vertigo, degenerative disc disease, constipation, doesn't use CPAP, glaucoma History of Any Multi-Drug Resistant Organisms: None Reported Past Surgical History: Bariatric Surgery, Bladder Surgery, Breast Surgery, Cholecystectomy, Heart Catheterization, Hysterectomy, Joint Replacement, Tubal Ligation Additional Past Surgical History / Comment(s): Hx left shoulder replacement, carolann eye surgery for glaucoma. Lt breast bx and Lt breast Lumpectomy. Bladder sling. Lap Band 2011, cataracts removed, tubes in ears Past Anesthesia/Blood Transfusion Reactions: No Reported Reaction Past Psychological History: Anxiety, Depression, Panic Disorder Smoking Status: Never smoker Past Alcohol Use History: None Reported Past Drug Use History: None Reported - Past Family History Daughter(s) Family Medical History: Cancer Additional Family Medical History / Comment(s): Colon CA Son(s) Family Medical History: Deep Vein Thrombosis (DVT), Pulmonary Embolus Surgical - Exam Vital Signs Temp Pulse BP 97.8 F 69 114/69 02/15/22 13:34 02/15/22 13:34 02/15/22 13:34 - General well developed, well nourished, no distress - Eyes PERRL - ENT normal pinna - Neck no masses - Respiratory normal expansion - Cardiovascular Rhythm: regular - Abdomen Abdomen: soft, non tender Bariatric Assessment & Plan Plan: Patient has minimal GERD. This lead observed. She'll follow-up in 4 weeks. Bariatric Checklist Checklist: Plan: Checklist: EGD: 1. Hiatal hernia: 2. H. Pylori: HgbA1c: Vitamin D: Smoking: Never smoker Primary care physician referral: momo Psychiatry clearance: Cardiology clearance: Sleep study: Diet journal: VTE risk score: VTE risk level: Rehab needs at discharge:
== END ==
LOC: BARWHC3 13:22
PROVIDERS: ATTEND Surgery
DX: Z09 Encounter for follow-up examination after completed treatment for conditions other than malignant neoplasm (principal); K21.9 Gastro-esophageal reflux disease without esophagitis; J44.9 Chronic obstructive pulmonary disease, unspecified; E11.9 Type 2 diabetes mellitus without complications; E78.5 Hyperlipidemia, unspecified; I10 Essential (primary) hypertension; M19.90 Unspecified osteoarthritis, unspecified site; M06.9 Rheumatoid arthritis, unspecified; F32.A Depression, unspecified; F41.0 Panic disorder [episodic paroxysmal anxiety]; F17.210 Nicotine dependence, cigarettes, uncomplicated; Z91.09 Other allergy status, other than to drugs and biological substances
CPT/HCPCS: 99211

== ENCOUNTER → 2022-05-03 | Outpatient (CLI) | payer MEDICARE, OTHER ==
[2022-05-03 14:00] VITALS: BP 109/73; PULSE 71; TEMP 98.1; BMI 37.8
--- NOTE | 2022-05-03 14:44 | P.HPBAR ---
Bariatric H&P - History & Physicial H&P Date: 05/03/22 History & Physicial: Visit/CC: sleeve f/u Patient initial contact: Initial weight: 148.778 kg Initial weight in pounds: 328.00 Height: 5 ft 6 in Initial BMI: 52.9 Last weight: Current weight: 106.141 kg Current weight in pounds: 234.00 Current BMI: 37.8 [place] body weight (based on NIH guidelines): 58.967 kg Excess body weight loss: 47.4% The patient is a 67 year-old F who presents for Bariatric Assessment. Patient presents today for bariatric follow-up. She is doing well from weight loss standpoint. Her current weight is 234 pounds. Her previous weight was 231 pounds. She does have some complaints of GERD. Her recent EGD showed evidence of some esophagitis. Past Medical History Past Medical History: Asthma, Cancer, COPD, Diabetes Mellitus, Eye Disorder, GERD/Reflux, Hearing Disorder / Deafness, Hyperlipidemia, Hypertension, Osteoarthritis (OA), Rheumatoid Arthritis (RA), Sleep Apnea/CPAP/BIPAP Additional Past Medical History / Comment(s): Diet controlled diabetic, intermittent heart murmur, hiatal hernia, umbilical hernia. Breast CA with radiation tx. , Vertigo, degenerative disc disease, constipation, doesn't use CPAP, glaucoma History of Any Multi-Drug Resistant Organisms: None Reported Past Surgical History: Bariatric Surgery, Bladder Surgery, Breast Surgery, Cholecystectomy, Heart Catheterization, Hysterectomy, Joint Replacement, Tubal Ligation Additional Past Surgical History / Comment(s): Hx left shoulder replacement, carolann eye surgery for glaucoma. Lt breast bx and Lt breast Lumpectomy. Bladder sling. Lap Band 2011, cataracts removed, tubes in ears Past Anesthesia/Blood Transfusion Reactions: No Reported Reaction Past Psychological History: Anxiety, Depression, Panic Disorder Smoking Status: Never smoker Past Alcohol Use History: None Reported Past Drug Use History: None Reported - Past Family History Daughter(s) Family Medical History: Cancer Additional Family Medical History / Comment(s): Colon CA Son(s) Family Medical History: Deep Vein Thrombosis (DVT), Pulmonary Embolus Surgical - Exam Vital Signs Temp Pulse BP 98.1 F 71 109/73 05/03/22 13:56 05/03/22 13:56 05/03/22 13:56 - General well developed, well nourished - Eyes PERRL - ENT normal pinna - Neck no masses - Respiratory normal expansion - Cardiovascular Rhythm: regular - Abdomen Abdomen: soft, non tender Bariatric Assessment & Plan Plan: Status post sleeve gastrectomy. Patient did well. Her GERD will be observed. She is currently being treated with omeprazole. She'll follow-up in 8 weeks. Bariatric Checklist Checklist: Plan: Checklist: EGD: 1. Hiatal hernia: 2. H. Pylori: HgbA1c: Vitamin D: Smoking: Never smoker Primary care physician referral: momo Psychiatry clearance: Cardiology clearance: Sleep study: Diet journal: VTE risk score: VTE risk level: Rehab needs at discharge:
== END ==
LOC: BARWHC3 13:15
PROVIDERS: ATTEND Surgery
DX: Z09 Encounter for follow-up examination after completed treatment for conditions other than malignant neoplasm (principal); K21.9 Gastro-esophageal reflux disease without esophagitis; Z98.84 Bariatric surgery status; J44.9 Chronic obstructive pulmonary disease, unspecified; E11.9 Type 2 diabetes mellitus without complications; E78.5 Hyperlipidemia, unspecified; I10 Essential (primary) hypertension; M19.90 Unspecified osteoarthritis, unspecified site; M06.9 Rheumatoid arthritis, unspecified; F41.9 Anxiety disorder, unspecified; F32.A Depression, unspecified; Z91.09 Other allergy status, other than to drugs and biological substances
CPT/HCPCS: 99211

== ENCOUNTER → 2022-05-07 | Outpatient (CLI) | payer MEDICARE, OTHER ==
--- NOTE | 2022-05-07 15:36 | CT ---
EXAMINATION TYPE: CT abdomen pelvis w con DATE OF EXAM: 05/07/2022 COMPARISON: None HISTORY: Ventral hernia CT DLP: 2010 mGycm CONTRAST: CT scan of the abdomen and pelvis is performed with Oral Contrast and with IV Contrast, patient injec caitlyn with 70cc mL of Isovue 300. FINDINGS: LUNG BASES-: No visible nodule. No infiltrate. LIVER/GB: The gallbladder surgically absent. No space occupying hepatic lesion. Biliary tree is of normal caliber. PANCREAS: No inflammation. No distinct mass. SPLEEN: No splenic enlargement. No lesion seen. ADRENALS: No nodule. No thickening. KIDNEYS/BLADDER: No hydronephrosis. No nephrolithiasis. No distinct renal mass. Urinary bladder g rossly unremarkable. BOWEL: Normal appendix. Normal bowel caliber. No inflammation. Changes of gastric sleeve with promi nence of the distal esophagus. Small fat-containing umbilical hernia. No whit ventral hernia appreci ated. GENITAL ORGANS: No gross abnormality. LYMPH NODES: No greater than 1cm abdominal or pelvic lymph nodes are appreciated. AORTA: No significant abnormality. OSSEOUS STRUCTURES: Degenerative and postoperative changes lumbar spine. OTHER: No significant additional abnormality is seen. IMPRESSION: 1. Gastric sleeve with the mild prominence of the distal esophagus. 2. Tiny fat-containing umbilical hernia.
== END | disposition home or self-care (01) ==
LOC: RADCTMAIN 13:01
PROVIDERS: ATTEND Surgery
DX: K42.9 Umbilical hernia without obstruction or gangrene (principal)
CPT/HCPCS: 82565; 84520; 74177; 36415; Q9967 ×2

== ENCOUNTER 2022-05-19 06:03 | Day surgery (SDC) | payer MEDICARE, OTHER ==
[2022-05-17 14:54] VITALS: BMI 37.8
[~2022-05-19 06:03] MED LIST changes: +ACETAMINOPHEN TAB 500 MG TAB PO PRN; +HEPARIN SODIUM,PORCINE/PF 5,000 UNIT/0.5 ML SYRINGE SQ PRN; -HYDROmorphone 0.5 MG/0.5 ML SYRINGE IVP PRN; +LIDOCAINE 1% (10MG/ML) FOR IV START INTRADERMA PRN; +MIDAZOLAM 2 MG/2 ML VIAL IV PRN; -Pre Op ABX Message 1 EACH MISC MISCELLANE ONE
[2022-05-19] MEDS ORDERED: HYDROmorphone 0.5 MG/0.5 ML SYRINGE IVP PRN (07:00)
[2022-05-19 07:07] LABS: Glucose,Whole Blood 90 mg/dL (70-110)
--- NOTE | 2022-05-19 07:35 | P.GSHP ---
History of Present Illness H&P Date: 05/19/22 Chief Complaint: Umbilical hernia This 58-year-old female who had complaints of umbilical pain. Patient recent CAT scan shows evidence of an incarcerated local hernia. Patient presents today for laparoscopic robotic-assisted repair. Past Medical History Past Medical History: Asthma, Cancer, COPD, Diabetes Mellitus, Eye Disorder, GERD/Reflux, Hearing Disorder / Deafness, Hyperlipidemia, Hypertension, Osteoarthritis (OA), Rheumatoid Arthritis (RA), Sleep Apnea/CPAP/BIPAP Additional Past Medical History / Comment(s): Diet controlled diabetic, intermittent heart murmur, hiatal hernia, umbilical hernia. Breast CA with radiation tx. , Vertigo, degenerative disc disease, constipation, doesn't use CPAP, glaucoma History of Any Multi-Drug Resistant Organisms: None Reported Past Surgical History: Bariatric Surgery, Bladder Surgery, Breast Surgery, Cholecystectomy, Heart Catheterization, Hysterectomy, Joint Replacement, Tubal Ligation Additional Past Surgical History / Comment(s): Hx left shoulder replacement, carolann eye surgery for glaucoma. Lt breast bx and Lt breast Lumpectomy. Bladder sling. Lap Band 2011, cataracts removed, tubes in ears Past Anesthesia/Blood Transfusion Reactions: No Reported Reaction Smoking Status: Never smoker - Past Family History Daughter(s) Family Medical History: Cancer Additional Family Medical History / Comment(s): Colon CA Son(s) Family Medical History: Deep Vein Thrombosis (DVT), Pulmonary Embolus Medications and Allergies Home Medications Medication Instructions Recorded Confirmed Type Cholecalciferol [Vitamin D3 (25 2,000 unit PO QAM 03/17/16 05/19/22 History Mcg = 1000 Iu)] Meclizine [Antivert] 25 mg PO TID PRN 09/23/16 05/19/22 History lisinopriL [Zestril] 10 mg PO QAM 09/23/16 05/19/22 History Ascorbic Acid [Vitamin C] 500 mg PO DAILY 06/08/19 05/19/22 History Citalopram Hydrobromide [CeleXA] 20 mg PO DAILY 06/08/19 05/19/22 History Omeprazole [PriLOSEC] 20 mg PO DAILY 09/01/20 05/19/22 History Aspirin 81 mg PO DAILY 10/29/21 05/19/22 History Cetirizine HCl [Zyrtec] 10 mg PO DAILY 02/09/22 05/19/22 History Allergies Allergy/AdvReac Type Severity Reaction Status Date / Time cigarette smoke Allergy Dyspnea, Verified 05/19/22 06:57 congestion nylon Allergy Itching Verified 05/19/22 06:57 wool Allergy Itching Verified 05/19/22 06:57 HAYFEVER Allergy CONGESTION Uncoded 05/19/22 06:57 Surgical - Exam Vital Signs Temp Pulse Resp BP Pulse Ox 97 F L 64 18 131/71 97 05/19/22 06:54 05/19/22 06:54 05/19/22 06:54 05/19/22 06:54 05/19/22 06:54 - General well developed, well nourished, no distress - Eyes PERRL - ENT normal pinna - Neck no masses - Respiratory normal expansion - Cardiovascular Rhythm: regular - Abdomen Small umbilical hernia Abdomen: soft, non tender, no guarding, no rigid, no rebound Assessment and Plan Assessment: Umbilical hernia. We'll perform laparoscopic robotic-assisted repair.
[2022-05-19] MEDS ORDERED: fentaNYL (PF) 50 MCG/ML 2 ML AMP ONE (07:49)
[2022-05-19] MEDS ORDERED: MIDAZOLAM 2 MG/2 ML VIAL ONE (07:49)
[2022-05-19] MEDS ORDERED: GLYCOPYRROLATE 0.2 MG/ML 2 ML VIAL ONE (07:49)
[2022-05-19] MEDS ORDERED: NEOSTIGMINE 1 MG/ML 10 ML VIAL ONE (07:49)
[2022-05-19] MEDS ORDERED: KETOROLAC 15 MG/ML 1 ML VIAL ONE (07:49)
[2022-05-19] MEDS ORDERED: KETAMINE 10 MG/ML 20 ML VIAL ONE (07:49)
[2022-05-19] MEDS ORDERED: LIDOCAINE 2% INJ 20 MG/ML (2 ML VIAL) ONE (07:49)
[2022-05-19] MEDS ORDERED: ROCURONIUM 10 MG/ML (5 ML VIAL) IV ONE (07:49)
[2022-05-19] MEDS ORDERED: SUCCINYLCHOLINE CHLORIDE 200 MG/10 ML VIAL IV ONE (07:49)
[2022-05-19] MEDS ORDERED: PROPOFOL 10 MG/ML 20 ML VIAL IV ONE (07:49)
[2022-05-19] MEDS ORDERED: BUPIVACAINE (PF) 0.5% 30 ML VIAL SQ ONE (08:14)
--- NOTE | 2022-05-19 08:47 | P.OP ---
Date of Procedure: 05/19/22 Preoperative Diagnosis: Umbilical hernia Postoperative Diagnosis: Umbilical hernia incarcerated Procedure(s) Performed: Laparoscopic robotic-assisted repair of incarcerated umbilical hernia Partial omentectomy Transversus abdominis plane block Anesthesia: JON Surgeon: Justin Orourke Estimated Blood Loss (ml): 5 Pathology: other (Omentum) Condition: stable Disposition: PACU Description of Procedure: The patient was placed on the operating table in the supine position. He received general anesthesia. His abdomen was prepped and draped usual fashion. Using a 5 mm optical trocar under direct visualization the peritoneal cavity was entered in the left upper quadrant. The abdomen was then insufflated. The laparoscope was placed back into the perineal cavity. Next a 8 mm robotic trocar was placed in the left lower quadrant and a 12 mm robotic trocar was placed in the left lateral position. The original 5 mm trocar was exchanged for a 8 mm robotic trocar. The patient's placed in the left side up position. And the patient was docked the robot. The umbilical hernia was visualized. Using hook cautery the peritoneum over the umbilical hernia was excised. Incarcerated omentum was dissected free so pathology. The fascial opening was repaired using 0V LOC suture. Next a piece of 11 cm round ventral light ST mesh was placed into the. Cavity and secured with 2 OV lock suture. The patient was undocked the robot. The needles were retrieved. The fascia of the 12 mm trocar site was closed with 0 Ethibond suture. A four-quadrant transversus abdominis plane block was performed using 1% local Xylocaine. Skin was closed interrupted 3-0 Monocryl suture. Dermabond dressings was applied. Patient top procedure well and was sent to recovery room stable condition.
[2022-05-19 09:10] VITALS: TEMP 97.4
[2022-05-19 11:28] VITALS: BP 109/61; PULSE 51; RESP 18
== END 2022-05-19 12:25 ==
LOC: OR 06:03
PROVIDERS: ATTEND Surgery
DX: K42.9 Umbilical hernia without obstruction or gangrene (principal); J44.9 Chronic obstructive pulmonary disease, unspecified; E11.9 Type 2 diabetes mellitus without complications; K21.9 Gastro-esophageal reflux disease without esophagitis; E78.5 Hyperlipidemia, unspecified; I10 Essential (primary) hypertension; M06.9 Rheumatoid arthritis, unspecified; G47.33 Obstructive sleep apnea (adult) (pediatric); Z80.3 Family history of malignant neoplasm of breast; Z90.49 Acquired absence of other specified parts of digestive tract; Z90.710 Acquired absence of both cervix and uterus; Z96.612 Presence of left artificial shoulder joint; Z98.49 Cataract extraction status, unspecified eye; Z98.51 Tubal ligation status; Z80.0 Family history of malignant neoplasm of digestive organs; Z82.49 Family history of ischemic heart disease and other diseases of the circulatory system; Z79.82 Long term (current) use of aspirin; Z79.899 Other long term (current) drug therapy
CPT/HCPCS: 88302; 49653; 64486; C1781; J2250; J0330; J1100; J2710; J0690; J2405; J3010; J1885; J2704; J1644; J2001

== ENCOUNTER → 2022-07-05 | Outpatient (CLI) | payer MEDICARE, OTHER ==
[2022-07-05 13:51] VITALS: BP 116/78; PULSE 74; RESP 12; TEMP 97.9; BMI 37.8
--- NOTE | 2022-07-05 15:12 | P.HPBAR ---
Bariatric H&P - History & Physicial H&P Date: 07/05/22 History & Physicial: Visit/CC: pain abdomen Patient initial contact: Initial weight: 148.778 kg Initial weight in pounds: 328.00 Height: 5 ft 6 in Initial BMI: 52.9 Last weight: Current weight: 106.141 kg Current weight in pounds: 234.00 Current BMI: 37.8 [place] body weight (based on NIH guidelines): 58.967 kg Excess body weight loss: 47.4% The patient is a 67 year-old F who presents for Bariatric Assessment. Patient presents today for bariatric follow-up. She has completed GERD. He has complaints of perianal pain. She feels she may have a hernia near her umbilicus. Past Medical History Past Medical History: Asthma, Cancer, COPD, Diabetes Mellitus, Eye Disorder, GERD/Reflux, Hearing Disorder / Deafness, Hyperlipidemia, Hypertension, Osteoarthritis (OA), Rheumatoid Arthritis (RA), Sleep Apnea/CPAP/BIPAP Additional Past Medical History / Comment(s): Diet controlled diabetic, intermittent heart murmur, hiatal hernia, umbilical hernia. Breast CA with radiation tx. , Vertigo, degenerative disc disease, constipation, doesn't use CPAP, glaucoma History of Any Multi-Drug Resistant Organisms: None Reported Past Surgical History: Bariatric Surgery, Bladder Surgery, Breast Surgery, Cholecystectomy, Heart Catheterization, Hysterectomy, Joint Replacement, Tubal Ligation Additional Past Surgical History / Comment(s): Hx left shoulder replacement, carolann eye surgery for glaucoma. Lt breast bx and Lt breast Lumpectomy. Bladder sling. Lap Band 2011, cataracts removed, tubes in ears Past Anesthesia/Blood Transfusion Reactions: No Reported Reaction Past Psychological History: Anxiety, Depression, Panic Disorder Smoking Status: Never smoker Past Alcohol Use History: None Reported Past Drug Use History: None Reported - Past Family History Daughter(s) Family Medical History: Cancer Additional Family Medical History / Comment(s): Colon CA Son(s) Family Medical History: Deep Vein Thrombosis (DVT), Pulmonary Embolus Surgical - Exam Vital Signs Temp Pulse Resp BP 97.9 F 74 12 116/78 07/05/22 13:45 07/05/22 13:45 07/05/22 13:45 07/05/22 13:45 - General well developed, well nourished, no distress - Eyes PERRL - Abdomen Tenderness above the umbilicus. Questionable small incisional hernia. Abdomen: soft Bariatric Assessment & Plan Plan: GERD patient will be observed. Possible incisional hernia. Patient be scheduled for a CAT scan to evaluate for possible hernia. Bariatric Checklist Checklist: Plan: Checklist: EGD: 1. Hiatal hernia: 2. H. Pylori: HgbA1c: Vitamin D: Smoking: Never smoker Primary care physician referral: kut Psychiatry clearance: Cardiology clearance: Sleep study: Diet journal: VTE risk score: VTE risk level: Rehab needs at discharge:
== END ==
LOC: BARWHC3 13:10
PROVIDERS: ATTEND Surgery
DX: Z09 Encounter for follow-up examination after completed treatment for conditions other than malignant neoplasm (principal); Z98.84 Bariatric surgery status; E66.01 Morbid (severe) obesity due to excess calories; Z68.37 Body mass index [BMI] 37.0-37.9, adult; Z91.09 Other allergy status, other than to drugs and biological substances; Z91.048 Other nonmedicinal substance allergy status
CPT/HCPCS: 99211

== ENCOUNTER → 2022-07-21 | Outpatient (CLI) | payer MEDICARE, OTHER ==
[2022-07-21 19:08] LABS: Basophils # (A) 0.06 X 10*3/uL (0.00-0.10); Eosinophils # (A) 0.19 X 10*3/uL (0.04-0.35); Eosinophils % (A) 3.2 %; HCT 45.1 % (37.2-46.3); HGB 14.4 g/dL (12.0-15.0); Immature Grans, Automated 0.3 %; Lymphocytes # (A) 2.37 X 10*3/uL (0.90-5.00); Lymphocytes % (A) 40.5 %; MCH 29.3 pg (27.0-32.0); MCHC 31.9 g/dL (32.0-37.0); MCV 91.9 fL (80.0-97.0); Mean Platelet Volume 9.9 fL (9.5-12.2); Monocytes % (A) 6.8 %; NRBC Per 100 WBC 0 /100 WBCS (0.0-0.0); Neutrophils # (A) 2.81 X 10*3/uL (1.80-7.70); Neutrophils % (A) 48.2 %; Platelet Count 324 X 10*3/uL (140-440); RBC 4.91 X 10*6/uL (4.10-5.20); RDW 12.6 % (11.5-14.5); WBC 5.85 X 10*3/uL (4.50-10.00)
[2022-07-21 20:53] LABS: African American GFR (CKD) 75.6 (60.0-200.0); Albumin 3.9 g/dL (3.8-4.9); Albumin/Globulin Ratio 1.26 (1.60-3.17); Anion Gap 7.3 mmol/L (10.00-18.00); BUN/Creat Ratio 13.56 Ratio (12.00-20.00); Blood Urea Nitrogen 12.2 mg/dL (9.0-27.0); Calcium 9.2 mg/dL (8.7-10.3); Carbon Dioxide 29.7 mmol/L (20.0-27.5); Globulin 3.1 g/dL (1.6-3.3); Non-African American GFR(CKD) 65.2 (60.0-200.0); Potassium 4.1 mmol/L (3.5-5.5); Total Bilirubin 0.3 mg/dL (0.30-1.20)
== END | disposition home or self-care (01) ==
LOC: LABPAT 13:30
PROVIDERS: ATTEND Surgery
DX: Z01.812 Encounter for preprocedural laboratory examination (principal)
CPT/HCPCS: 36415; 80053; 85025

== ENCOUNTER 2022-07-26 07:47 | Day surgery (SDC) | payer MEDICARE, OTHER ==
[~2022-07-26 07:47] MED LIST changes: -ACETAMINOPHEN TAB 500 MG TAB PO PRN; -HEPARIN SODIUM,PORCINE/PF 5,000 UNIT/0.5 ML SYRINGE SQ PRN; +HYDROmorphone 0.5 MG/0.5 ML SYRINGE IVP PRN; -LACTATED RINGERS 1,000 ML IV SCH; -MIDAZOLAM 2 MG/2 ML VIAL IV PRN
[2022-07-26] MEDS ORDERED: HEPARIN SODIUM,PORCINE/PF 5,000 UNIT/0.5 ML SYRINGE SQ ONE (08:14)
[2022-07-26 08:19] LABS: Glucose,Whole Blood 87 mg/dL (70-110)
[2022-07-26] MEDS: LACTATED RINGERS 1,000 ML IV SCH (08:19)
--- NOTE | 2022-07-26 08:20 | P.GSHP ---
History of Present Illness H&P Date: 07/26/22 Chief Complaint: Incisional hernia This 67-year-old female. History of gastric sleeve surgery. Patient developed an incisional hernia at her umbilicus. She presents today for open repair. Past Medical History Past Medical History: Asthma, Cancer, COPD, Diabetes Mellitus, Eye Disorder, GERD/Reflux, Hearing Disorder / Deafness, Hyperlipidemia, Hypertension, Osteoarthritis (OA), Rheumatoid Arthritis (RA), Sleep Apnea/CPAP/BIPAP Additional Past Medical History / Comment(s): Diet controlled diabetic, intermittent heart murmur, hiatal hernia, umbilical hernia. Breast CA with radiation tx. , Vertigo, degenerative disc disease, constipation, doesn't use CPAP, glaucoma History of Any Multi-Drug Resistant Organisms: None Reported Past Surgical History: Bariatric Surgery, Bladder Surgery, Breast Surgery, Cholecystectomy, Heart Catheterization, Hysterectomy, Joint Replacement, Tubal Ligation Additional Past Surgical History / Comment(s): Hx left shoulder replacement, carolann eye surgery for glaucoma. Lt breast bx and Lt breast Lumpectomy. Bladder sling. Lap Band 2011, cataracts removed, tubes in ears Past Anesthesia/Blood Transfusion Reactions: No Reported Reaction Smoking Status: Never smoker - Past Family History Daughter(s) Family Medical History: Cancer Additional Family Medical History / Comment(s): Colon CA Son(s) Family Medical History: Deep Vein Thrombosis (DVT), Pulmonary Embolus Medications and Allergies Home Medications Medication Instructions Recorded Confirmed Type Cholecalciferol [Vitamin D3 (25 2,000 unit PO QAM 03/17/16 07/22/22 History Mcg = 1000 Iu)] Meclizine [Antivert] 25 mg PO TID PRN 09/23/16 07/26/22 History lisinopriL [Zestril] 10 mg PO QAM 09/23/16 07/26/22 History Ascorbic Acid [Vitamin C] 500 mg PO DAILY 06/08/19 07/22/22 History Citalopram Hydrobromide [CeleXA] 20 mg PO DAILY 06/08/19 07/26/22 History Omeprazole [PriLOSEC] 20 mg PO DAILY 09/01/20 07/26/22 History Aspirin 81 mg PO DAILY 10/29/21 07/22/22 History Cetirizine HCl [Zyrtec] 10 mg PO DAILY 02/09/22 07/26/22 History Acetaminophen Tab [Tylenol] 650 mg PO Q6H #30 tab 05/19/22 07/26/22 Rx Ibuprofen [Motrin] 600 mg PO Q6HR PRN #40 tab 05/19/22 07/22/22 Rx oxyCODONE HCL [OxyIR] 5 mg PO Q6H PRN 3 Days #10 tab 05/19/22 07/26/22 Rx Docusate [Colace] 100 mg PO BID PRN 07/22/22 07/26/22 History Allergies Allergy/AdvReac Type Severity Reaction Status Date / Time cigarette smoke Allergy Dyspnea, Verified 07/26/22 08:09 congestion nylon Allergy Itching Verified 07/26/22 08:09 wool Allergy Itching Verified 07/26/22 08:09 HAYFEVER Allergy CONGESTION Uncoded 07/26/22 08:09 Surgical - Exam Vital Signs Temp Pulse Resp BP Pulse Ox 97.8 F 70 16 130/67 96 07/26/22 08:07 07/26/22 08:07 07/26/22 08:07 07/26/22 08:07 07/26/22 08:07 - General well developed, well nourished, no distress - Eyes PERRL - ENT normal pinna - Neck no masses - Respiratory normal expansion - Cardiovascular Rhythm: regular - Abdomen Abdomen: soft, non tender Hernia: incisional (2 cm incisional hernia located at umbilicus) Assessment and Plan Assessment: Incisional hernia. We'll perform open repair.
[2022-07-26] MEDS ORDERED: BUPIVACAIN-EPI 0.25%-1:200,000 30 ML VIAL SQ ONE (08:28)
[2022-07-26] MEDS ORDERED: SUCCINYLCHOLINE CHLORIDE 200 MG/10 ML VIAL IV ONE (08:35)
[2022-07-26] MEDS ORDERED: ROCURONIUM 10 MG/ML (5 ML VIAL) IV ONE (08:35)
[2022-07-26] MEDS ORDERED: LIDOCAINE 2% INJ 20 MG/ML (2 ML VIAL) ONE (08:35)
[2022-07-26] MEDS ORDERED: fentaNYL (PF) 50 MCG/ML 2 ML AMP ONE (08:35)
[2022-07-26] MEDS ORDERED: PROPOFOL 10 MG/ML 20 ML VIAL IV ONE (08:35)
[2022-07-26] MEDS ORDERED: ePHEDrine 50 MG/ML 1 ML VIAL ONE (08:35)
[2022-07-26] MEDS ORDERED: MIDAZOLAM 2 MG/2 ML VIAL ONE (08:35)
--- NOTE | 2022-07-26 09:38 | P.OP ---
Date of Procedure: 07/26/22 Preoperative Diagnosis: Incisional hernia Postoperative Diagnosis: Incisional hernia Procedure(s) Performed: (Incisional hernia Anesthesia: JON Surgeon: Justin Orourke Estimated Blood Loss (ml): 5 Pathology: none sent Condition: stable Disposition: PACU Description of Procedure: The patient's placed on the operative table in the supine position. She received general endotracheal tube anesthesia. Her abdomen was prepped and draped usual fashion. A skin incision was made above the umbilicus. Using blunt sharp dissection with cautery the subcutaneous tissue divided. The fascia exposed. There was a small incisional hernia noted. The hernia sac was inverted back the pleural cavity. And then the fascial defect was closed with. 0 Ethibond suture. Hemostasis was achieved left cautery. Skin was closed sania. Patient top she will was sent to recovery room in stable condition.
[2022-07-26] MEDS ORDERED: NALOXONE 0.4 MG/ML 1 ML VIAL IV PRN (09:39)
[2022-07-26] MEDS ORDERED: HYDROmorphone 0.5 MG/0.5 ML SYRINGE IVP PRN (09:39)
[2022-07-26] MEDS ORDERED: ONDANSETRON 4 MG/2 ML VIAL IVP PRN (09:39)
[2022-07-26] MEDS ORDERED: ACETAMINOPHEN TAB 325 MG TAB PO PRN (09:39)
[2022-07-26] MEDS ORDERED: HYDROcodone/APAP 5-325MG 1 EACH TAB PO PRN (09:39)
[2022-07-26] MEDS ORDERED: LACTATED RINGERS 1,000 ML IV ONE (09:39)
[2022-07-26] MEDS: KETOROLAC 15 MG/ML 1 ML VIAL IVP SCH ×3 (10:50→22:48)
[2022-07-26 12:02] LABS: Glucose,Whole Blood 100 mg/dL (70-110)
[2022-07-26] MEDS ORDERED: MECLIZINE 25 MG TAB PO PRN (16:20)
[2022-07-26] MEDS: DOCUSATE 100 MG CAP PO SCH (21:46)
--- NOTE | 2022-07-27 00:10 | P.CONS ---
History of Present Illness - Reason for Consult Consult date: 07/26/22 Medical management - Chief Complaint S/p Incisional hernia repair - History of Present Illness Patient is a 67-year-old female with a known history of hypertension, diabetes type 2 diet controlled, GERD, osteoarthritis, history of breast cancer with radiation treatment and surgery and history of gastric sleeve surgery anxiety depression and panic disorder was admitted to the hospital for elective repair of incisional hernia. Patient tolerated the procedure very well. Currently sitting in the chair. Pain is fairly controlled. No nausea vomiting abdominal pain or diarrhea. No cough or sputum production. Blood pressure is 100/64 and pulse ox 92% on room air. Patient has been afebrile. No cough or sputum production. Laboratory data reviewed on arrival at this time. Review of Systems Constitutional: Patient denies any fever or chills . No generalized weakness or weight loss. Abdomen: Patient denied nausea vomiting and diarrhea and abdominal pain. Cardiovascular: Patient denies any chest pain or short of breath no palpitations. Respiratory: patient denied any cough or sputum production. No shortness of breath Neurologic: Patient denied any numbness or tingling headache. Musculoskeletal: Patient denies any complaints of joint swelling or deformity. Skin: Negative Psychiatric: Negative Endocrine: No heat or cold intolerance. No recent weight gain. Genitourinary: No dysuria or hematuria. All other 14 point ROS negative except the above Past Medical History Past Medical History: Asthma, Cancer, COPD, Diabetes Mellitus, Eye Disorder, GERD/Reflux, Hearing Disorder / Deafness, Hyperlipidemia, Hypertension, Osteoarthritis (OA), Rheumatoid Arthritis (RA), Sleep Apnea/CPAP/BIPAP Additional Past Medical History / Comment(s): Diet controlled diabetic, intermittent heart murmur, hiatal hernia, umbilical hernia. Breast CA with radiation tx. , Vertigo, degenerative disc disease, constipation, doesn't use CPAP, glaucoma History of Any Multi-Drug Resistant Organisms: None Reported Past Surgical History: Bariatric Surgery, Bladder Surgery, Breast Surgery, Cholecystectomy, Heart Catheterization, Hysterectomy, Joint Replacement, Tubal Ligation Additional Past Surgical History / Comment(s): Hx left shoulder replacement, carolann eye surgery for glaucoma. Lt breast bx and Lt breast Lumpectomy. Bladder sling. Lap Band 2011, cataracts removed, tubes in ears, open hernia repair 07/26/2022 Past Anesthesia/Blood Transfusion Reactions: No Reported Reaction Past Psychological History: Anxiety, Depression, Panic Disorder Smoking Status: Never smoker Past Alcohol Use History: None Reported Past Drug Use History: None Reported - Past Family History Daughter(s) Family Medical History: Cancer Additional Family Medical History / Comment(s): Colon CA Son(s) Family Medical History: Deep Vein Thrombosis (DVT), Pulmonary Embolus Medications and Allergies Home Medications Medication Instructions Recorded Confirmed Type Cholecalciferol [Vitamin D3 (25 2,000 unit PO QAM 03/17/16 07/22/22 History Mcg = 1000 Iu)] Meclizine [Antivert] 25 mg PO TID PRN 09/23/16 07/26/22 History lisinopriL [Zestril] 10 mg PO QAM 09/23/16 07/26/22 History Ascorbic Acid [Vitamin C] 500 mg PO DAILY 06/08/19 07/22/22 History Citalopram Hydrobromide [CeleXA] 20 mg PO DAILY 06/08/19 07/26/22 History Omeprazole [PriLOSEC] 20 mg PO DAILY 09/01/20 07/26/22 History Aspirin 81 mg PO DAILY 10/29/21 07/22/22 History Cetirizine HCl [Zyrtec] 10 mg PO DAILY 02/09/22 07/26/22 History Acetaminophen Tab [Tylenol] 650 mg PO Q6H #30 tab 05/19/22 07/26/22 Rx Ibuprofen [Motrin] 600 mg PO Q6HR PRN #40 tab 05/19/22 07/22/22 Rx oxyCODONE HCL [OxyIR] 5 mg PO Q6H PRN 3 Days #10 tab 05/19/22 07/26/22 Rx Docusate [Colace] 100 mg PO BID PRN 07/22/22 07/26/22 History Allergies Allergy/AdvReac Type Severity Reaction Status Date / Time cigarette smoke Allergy Dyspnea, Verified 07/26/22 08:09 congestion nylon Allergy Itching Verified 07/26/22 08:09 wool Allergy Itching Verified 07/26/22 08:09 HAYFEVER Allergy CONGESTION Uncoded 07/26/22 08:09 Physical Exam Vitals: Vital Signs Temp Pulse Pulse Resp BP Pulse Ox 07/26/22 13:18 60 124/74 97 07/26/22 12:30 58 L 109/69 95 07/26/22 12:00 68 113/71 97 07/26/22 11:45 61 123/73 95 07/26/22 11:30 60 114/69 96 07/26/22 11:15 61 112/71 95 07/26/22 11:00 61 118/74 94 L 07/26/22 10:45 97.9 F 61 18 114/71 97 07/26/22 10:27 62 16 122/60 97 07/26/22 10:15 63 16 120/65 98 07/26/22 10:00 63 16 126/63 99 07/26/22 09:45 74 15 125/62 98 07/26/22 09:30 97.1 F L 94 16 131/64 94 L 07/26/22 08:07 97.8 F 70 16 130/67 96 Intake and Output 07/25/22 07/26/22 07/26/22 22:59 06:59 14:59 Intake Total 650 Balance 650 Intake: IV 650 Other: Weight 107 kg PHYSICAL EXAMINATION: Patient is lying in the bed comfortably, no acute distress, awake alert and oriented.. HEENT: Normocephalic. Neck is supple. Pupils reactive. Nostrils clear. Oral cavity is moist. Neck reveals no JVD, carotid bruits, or thyromegaly. CHEST EXAMINATION: Trachea is central. Symmetrical expansion. Lung carr clear to auscultation and percussion. Bibasilar diminished sounds. CARDIAC: Normal S1, S2 with no gallops. No murmurs ABDOMEN: Soft. Bowel sounds present. Surgical site bandaged.. No organomegaly. No abdominal bruits. Extremities: reveal no edema. No clubbing or cyanosis Neurologically awake, alert, oriented x3 with well-coordinated movements. No focal deficits noted Skin: No rash or skin lesions. Psychiatric: Cooperative. Nonsuicidal Musculoskeletal: No joint swelling or deformity. Normal range of motion. Assessment and Plan Assessment: S/p ventral incisional hernia. Postoperative day 0 Hypertension. Blood pressure is not elevated at this time. Diabetes type 2 diet controlled Stable breast cancer status postsurgery and radiation GERD Hearing disorder/deafness Osteoarthritis Obstructive sleep apnea not on CPAP at home Anxiety/depression panic disorder DVT prophylaxis Plan: Patient will be continued on pain management, bowel regimen and encourage incentive spirometry Patient will be started back on lisinopril 10 mg daily starting tomorrow. Continued home medications and follow-up closely. Follow-up CBC and BMP t omorrow. Further recommendations based on the clinical course. Thank you for your consult.
[2022-07-27] MEDS: LACTATED RINGERS 1,000 ML IV SCH (01:40)
[2022-07-27] MEDS: KETOROLAC 15 MG/ML 1 ML VIAL IVP SCH ×2 (05:45→11:46)
[2022-07-27] MEDS ORDERED: PANTOPRAZOLE 40 MG TABLET PO SCH (07:30)
[2022-07-27 07:58] VITALS: BP 109/67; PULSE 60; RESP 16; TEMP 98
[2022-07-27] MEDS ORDERED: CITALOPRAM HYDROBROMIDE 20 MG TAB PO SCH (09:00)
[2022-07-27] MEDS ORDERED: lisinopriL 10 MG TAB PO SCH (09:00)
[2022-07-27] MEDS ORDERED: ENOXAPARIN 40 MG/0.4 ML SYRINGE SQ SCH (09:00)
[2022-07-27] MEDS: DOCUSATE 100 MG CAP PO SCH (09:11)
[2022-07-27 09:24] LABS: Basophils # (A) 0.05 X 10*3/uL (0.00-0.10); Basophils % (A) 0.4 %; Eosinophils # (A) 0.06 X 10*3/uL (0.04-0.35); Eosinophils % (A) 0.5 %; HCT 39.1 % (37.2-46.3); HGB 12.1 g/dL (12.0-15.0); Immature Grans, Automated 0.4 %; Lymphocytes # (A) 2.51 X 10*3/uL (0.90-5.00); Lymphocytes % (A) 19.8 %; MCH 28.9 pg (27.0-32.0); MCHC 30.9 g/dL (32.0-37.0); MCV 93.3 fL (80.0-97.0); Mean Platelet Volume 10.1 fL (9.5-12.2); Monocytes # (A) 0.72 X 10*3/uL (0.20-1.00); Monocytes % (A) 5.7 %; NRBC Per 100 WBC 0 /100 WBCS (0.0-0.0); Neutrophils # (A) 9.31 X 10*3/uL (1.80-7.70); Neutrophils % (A) 73.2 %; Platelet Count 274 X 10*3/uL (140-440); RBC 4.19 X 10*6/uL (4.10-5.20); RDW 12.6 % (11.5-14.5)
[2022-07-27 09:37] LABS: African American GFR (CKD) 75.6 (60.0-200.0); Anion Gap 8.3 mmol/L (10.00-18.00); BUN/Creat Ratio 13.78 Ratio (12.00-20.00); Blood Urea Nitrogen 12.4 mg/dL (9.0-27.0); Calcium 8.9 mg/dL (8.7-10.3); Carbon Dioxide 27.7 mmol/L (20.0-27.5); Non-African American GFR(CKD) 65.2 (60.0-200.0); Potassium 4.6 mmol/L (3.5-5.5)
--- NOTE | 2022-07-27 12:54 | P.DS ---
Providers Expected date of discharge: 07/27/22 Attending physician: Justin Orourke Consults: 07/26/22 09:39 Consult Physician Routine Consulting Provider: Pari Rogers Consult Reason/Comments: Medical management Do you want consulting provider notified?: Yes Primary care physician: Steffen Contreras Hospital Course: Discharge diagnosis 1. Incisional hernia status post open repair of incisional hernia Hospital course This is a 67-year-old female with history of gastric sleeve surgery. She developed an incisional hernia at her umbilicus. Patient is status post open repair of incisional hernia. Patient's pain is controlled. She is tolerating diet. She is having flatus. She is up and ambulating. She is afebrile. She is stable for discharge. Please refer to chart for further details. Physician Service Transformer Repair Supervisor note has been reviewed by physician. Signing provider agrees with the documented findings, assessment, and plan of care. Patient Condition at Discharge: Stable Plan - Discharge Summary Discharge Rx Participant: No New Discharge Prescriptions: New HYDROcodone/APAP 5-325MG [[place] 5-325] 1 tab PO Q6HR PRN 3 Days #12 tab PRN Reason: Pain Continue Cholecalciferol [Vitamin D3 (25 Mcg = 1000 Iu)] 2,000 unit PO QAM Meclizine [Antivert] 25 mg PO TID PRN PRN Reason: Vertigo Ascorbic Acid [Vitamin C] 500 mg PO DAILY Citalopram Hydrobromide [CeleXA] 20 mg PO DAILY Omeprazole [PriLOSEC] 20 mg PO DAILY Docusate [Colace] 100 mg PO BID PRN PRN Reason: Constipation Aspirin 81 mg PO DAILY Cetirizine HCl [Zyrtec] 10 mg PO DAILY Discontinued Ibuprofen [Motrin] 600 mg PO Q6HR PRN #40 tab PRN Reason: Pain Acetaminophen Tab [Tylenol] 650 mg PO Q6H #30 tab oxyCODONE HCL [OxyIR] 5 mg PO Q6H PRN 3 Days #10 tab PRN Reason: Pain No Action lisinopriL [Zestril] 10 mg PO QAM Discharge Medication List Cholecalciferol [Vitamin D3 (25 Mcg = 1000 Iu)] 2,000 unit PO QAM 03/17/16 [History] Meclizine [Antivert] 25 mg PO TID PRN 09/23/16 [History] lisinopriL [Zestril] 10 mg PO QAM 09/23/16 [History] Ascorbic Acid [Vitamin C] 500 mg PO DAILY 06/08/19 [History] Citalopram Hydrobromide [CeleXA] 20 mg PO DAILY 06/08/19 [History] Omeprazole [PriLOSEC] 20 mg PO DAILY 09/01/20 [History] Aspirin 81 mg PO DAILY 10/29/21 [History] Cetirizine HCl [Zyrtec] 10 mg PO DAILY 02/09/22 [History] Docusate [Colace] 100 mg PO BID PRN 07/22/22 [History] HYDROcodone/APAP 5-325MG [[place] 5-325] 1 tab PO Q6HR PRN 3 Days #12 tab 07/27/22 [Rx] Follow up Appointment(s)/Referral(s): Justin Orourke MD [STAFF PHYSICIAN] - 08/02/22 1:45 pm Steffen Contreras MD [Primary Care Provider] - 1-2 Days Activity/Diet/Wound Care/Special Instructions: No driving while taking [place] No lifting over 10 pounds Shower. No soaking or tub baths for 2 weeks Very light activity until you are reevaluated at your follow up appointment with your surgeon Hold lisinopril for SBP less than 120 Discharge Disposition: HOME SELF-CARE
--- NOTE | 2022-07-28 06:40 | P.PN ---
Subjective Progress Note Date: 07/27/22 - Reason for Consult Consult date: 07/26/22 Medical management - Chief Complaint S/p Incisional hernia repair - History of Present Illness Patient is a 67-year-old female with a known history of hypertension, diabetes type 2 diet controlled, GERD, osteoarthritis, history of breast cancer with radiation treatment and surgery and history of gastric sleeve surgery anxiety depression and panic disorder was admitted to the hospital for elective repair of incisional hernia. Patient tolerated the procedure very well. Currently sitting in the chair. Pain is fairly controlled. No nausea vomiting abdominal pain or diarrhea. No cough or sputum production. Blood pressure is 100/64 and pulse ox 92% on room air. Patient has been afebrile. No cough or sputum production. Laboratory data reviewed on arrival at this time. 07/27/2022 Patient is seen and evaluated in follow-up today patient is status post incisional hernia repair with general surgery and feeling well. Patient reports some dull abdominal tenderness, but manageable. Patient is sitting up in the chair and tolerating diet. Patient reports she is passing gas a little with no bm yet. Patient is voiding with no difficulties. Patient reports she is waiting for surgery to let her go home. Afebrile and denies chest pain or shortness of breath. Review of systems: Constitutional: No reports of fatigue, fever, or chills Cardiovascular: No reports of chest pain or palpitations Respiratory: No reports of shortness of breath or cough GI: No reports of nausea, vomiting, or diarrhea, reports passing a little gas, no bm : No reports of dysuria or retention Neurovascular: No reports of weakness or numbness All medications have been reviewed PHYSICAL EXAMINATION: Patient is sitting up in the chair comfortably, no acute distress, awake alert a nd oriented.. HEENT: Normocephalic. Neck is supple. Pupils reactive. Nostrils clear. Oral cavity is moist. Neck reveals no JVD, carotid bruits, or thyromegaly. CHEST EXAMINATION: Trachea is central. Symmetrical expansion. Lung carr clear to auscultation and percussion. Bibasilar diminished sounds. CARDIAC: Normal S1, S2 with no gallops. No murmurs ABDOMEN: Soft. Bowel sounds present. Surgical site dressing is dry and intact. No organomegaly. No abdominal bruits. Extremities: reveal no edema. No clubbing or cyanosis Neurologically awake, alert, oriented x3 with well-coordinated movements. No focal deficits noted Skin: No rash or skin lesions. Psychiatric: Cooperative. Non-suicidal Musculoskeletal: No joint swelling or deformity. Normal range of motion. Assessment: S/p ventral incisional hernia repair. Postoperative day 1 Hypertension. Blood pressure is not elevated at this time. Diabetes type 2 diet controlled Stable breast cancer status post surgery and radiation GERD Hearing disorder/deafness Osteoarthritis Obstructive sleep apnea not on CPAP at home Anxiety/depression panic disorder DVT prophylaxis Plan: Patient reports pain is better today, bowel regimen and encourage incentive spirometry Patient resumed on home medications including lisinopril 10 mg daily and ok to resume other home medications Patient is tolerating diet Patient seen with surgeon Dr. Orourke at bedside and is being cleared for discharge with close outpatient follow up. We will continue to follow with surgery Thank you for this consultation. The impression and plan of care has been dictated by Leyla Mejia, Nurse Practitioner as directed. Dr. Keyanna MD I have performed a history and examination and MDM of this patient, discussed the same with the dictator, and agree with the dictator's assessment and plan as written ,documented as a scribe. Based on total visit time, I have performed more than 50% of the visit. Objective - Vital Signs Vital signs: Vital Signs Temp 98.0 F 07/27/22 07:58 Pulse 60 07/27/22 07:58 Resp 16 07/27/22 07:58 BP 109/67 07/27/22 07:58 Pulse Ox 94 L 07/27/22 07:58 FiO2 Intake & Output 07/26/22 07/27/22 07/27/22 18:59 06:59 18:59 Intake Total 650 625 Output Total 100 Balance 550 625 Weight 107 kg Intake: IV 650 Intake, IV Titration 625 Amount Lactated Ringers 1,000 ml 100 @ 20 mls/hr IV .Q24H MICHELLE Rx#:[id number] Lactated Ringers 1,000 ml 525 @ 75 mls/hr IV .[id number] ONE Rx#:[id number] Output: Urine 100 Other: Voiding Method Toilet # Voids 2 - Labs CBC & Chem 7: 07/27/22 06:31 07/27/22 06:31 Labs: Abnormal Lab Results - Last 24 Hours (Table) 07/27/22 07/27/22 Range/Units 06:31 06:31 WBC 12.70 H (4.50-10.00) X 10*3/uL MCHC 30.9 L (32.0-37.0) g/dL Immature Gran # 0.05 H (0.00-0.04) X 10*3/uL Neutrophils # 9.31 H (1.80-7.70) X 10*3/uL Carbon Dioxide 27.7 H (20.0-27.5) mmol/L Anion Gap 8.30 L (10.00-18.00) mmol/L
== END 2022-07-27 14:37 | disposition home or self-care (01) ==
LOC: OR 07:47 → 4SSUR 10:10 → OR 07-27 14:37
PROVIDERS: ATTEND Surgery
DX: K43.2 Incisional hernia without obstruction or gangrene (principal); Z98.84 Bariatric surgery status; J45.909 Unspecified asthma, uncomplicated; J44.9 Chronic obstructive pulmonary disease, unspecified; I10 Essential (primary) hypertension; E78.5 Hyperlipidemia, unspecified; E11.9 Type 2 diabetes mellitus without complications; K21.9 Gastro-esophageal reflux disease without esophagitis; M19.90 Unspecified osteoarthritis, unspecified site; G47.30 Sleep apnea, unspecified; K44.9 Diaphragmatic hernia without obstruction or gangrene; Z85.3 Personal history of malignant neoplasm of breast; Z92.3 Personal history of irradiation; H40.9 Unspecified glaucoma; Z90.49 Acquired absence of other specified parts of digestive tract; Z98.890 Other specified postprocedural states; Z98.51 Tubal ligation status; Z96.612 Presence of left artificial shoulder joint; Z80.0 Family history of malignant neoplasm of digestive organs; Z83.2 Family history of diseases of the blood and blood-forming organs and certain disorders involving the immune mechanism; Z79.01 Long term (current) use of anticoagulants; Z79.82 Long term (current) use of aspirin; Z79.1 Long term (current) use of non-steroidal anti-inflammatories (NSAID); Z91.048 Other nonmedicinal substance allergy status; H57.9 Unspecified disorder of eye and adnexa; H91.90 Unspecified hearing loss, unspecified ear; Z79.899 Other long term (current) drug therapy
CPT/HCPCS: 49560; 80048; 85025; J1100; J0690; J2405; J1650; J1885 ×2; J1644

== ENCOUNTER → 2022-08-09 | Outpatient (CLI) | payer MEDICARE, OTHER ==
[2022-08-09 14:38] VITALS: BP 124/80; PULSE 76; TEMP 98; BMI 37.5
--- NOTE | 2022-08-09 15:07 | P.HPBAR ---
Bariatric H&P - History & Physicial H&P Date: 08/09/22 History & Physicial: Visit/CC: hernia repair F/U Patient initial contact: Initial weight: 148.778 kg Initial weight in pounds: 328.00 Height: 5 ft 6 in Initial BMI: 52.9 Last weight: Current weight: 105.687 kg Current weight in pounds: 233.00 Current BMI: 37.5 [place] body weight (based on NIH guidelines): 58.967 kg Excess body weight loss: 47.9% The patient is a 67 year-old F who presents for Bariatric Assessment. Patient presents today for bariatric follow-up. She has will complaints of GERD. Past Medical History Past Medical History: Asthma, Cancer, COPD, Diabetes Mellitus, Eye Disorder, GERD/Reflux, Hearing Disorder / Deafness, Hyperlipidemia, Hypertension, Osteoarthritis (OA), Rheumatoid Arthritis (RA), Sleep Apnea/CPAP/BIPAP Additional Past Medical History / Comment(s): Diet controlled diabetic, intermittent heart murmur, hiatal hernia, umbilical hernia. Breast CA with radiation tx. , Vertigo, degenerative disc disease, constipation, doesn't use CPAP, glaucoma History of Any Multi-Drug Resistant Organisms: None Reported Past Surgical History: Bariatric Surgery, Bladder Surgery, Breast Surgery, Cholecystectomy, Heart Catheterization, Hysterectomy, Joint Replacement, Tubal Ligation Additional Past Surgical History / Comment(s): Hx left shoulder replacement, carolann eye surgery for glaucoma. Lt breast bx and Lt breast Lumpectomy. Bladder sling. Lap Band 2011, cataracts removed, tubes in ears, open hernia repair 07/26/2022 Past Anesthesia/Blood Transfusion Reactions: No Reported Reaction Past Psychological History: Anxiety, Depression, Panic Disorder Smoking Status: Never smoker Past Alcohol Use History: None Reported Past Drug Use History: None Reported - Past Family History Daughter(s) Family Medical History: Cancer Additional Family Medical History / Comment(s): Colon CA Son(s) Family Medical History: Deep Vein Thrombosis (DVT), Pulmonary Embolus Surgical - Exam Vital Signs Temp Pulse BP 98 F 76 124/80 08/09/22 14:34 08/09/22 14:34 08/09/22 14:34 - General well developed, well nourished, no distress - Eyes PERRL - ENT normal pinna, normal nares - Neck no masses - Respiratory normal expansion - Cardiovascular Rhythm: regular - Abdomen Abdomen: soft, non tender Bariatric Assessment & Plan Plan: A shunt GERD is minimal she'll be observed. She'll follow-up in the general surgery office for staple removal. Bariatric Checklist Checklist: Plan: Checklist: EGD: 1. Hiatal hernia: 2. H. Pylori: HgbA1c: Vitamin D: Smoking: Never smoker Primary care physician referral: kut Psychiatry clearance: Cardiology clearance: Sleep study: Diet journal: VTE risk score: VTE risk level: Rehab needs at discharge:
== END ==
LOC: BARWHC3 14:20
PROVIDERS: ATTEND Surgery
DX: E66.01 Morbid (severe) obesity due to excess calories (principal); Z68.37 Body mass index [BMI] 37.0-37.9, adult; J44.9 Chronic obstructive pulmonary disease, unspecified; E11.9 Type 2 diabetes mellitus without complications; K21.9 Gastro-esophageal reflux disease without esophagitis; E78.5 Hyperlipidemia, unspecified; I10 Essential (primary) hypertension; M06.9 Rheumatoid arthritis, unspecified; Z77.22 Contact with and (suspected) exposure to environmental tobacco smoke (acute) (chronic); Z91.048 Other nonmedicinal substance allergy status
CPT/HCPCS: 99211

== ENCOUNTER 2023-12-13 06:09 | Day surgery (SDC) | payer MEDICARE, OTHER ==
[~2023-12-13 06:09] MED LIST changes: +ALPRAZolam 0.25 MG TAB PO PRN; +ALPRAZolam 0.5 MG TAB PO PRN; -DEXAMETHASONE SOD PHOSPHATE 4 MG/ML 1 ML VIAL IV ONE; +HEPARIN SODIUM,PORCINE (1 ML) 2,500 UNIT in SODIUM CHLORIDE 0.9% 250 ML IRRIGATION PRN; +HEPARIN SODIUM,PORCINE 10,000 UNIT in SODIUM CHLORIDE 0.9% 1,000 ML IRRIGATION PRN; -HYDROmorphone 0.5 MG/0.5 ML SYRINGE IVP PRN; +LACTATED RINGERS 1,000 ML IV SCH; +NITROGLYCERIN SL TABS 0.4 MG TAB SUBLINGUAL PRN; -ONDANSETRON 4 MG/2 ML VIAL IVP ONE
[2023-12-13] MEDS: SODIUM CHLORIDE 0.9% 1,000 ML IV ONE (06:53)
[2023-12-13] MEDS: ASPIRIN 325 MG TAB PO ONE (06:58)
[2023-12-13] MEDS ORDERED: ASPIRIN 81 MG ONE (07:00)
[2023-12-13] MEDS ORDERED: ATORVASTATIN 80 MG TAB PO ONE (07:00)
[2023-12-13] MEDS ORDERED: VERAPAMIL 2.5 MG/ML 2 ML AMP ONE (07:13)
[2023-12-13] MEDS ORDERED: LIDOCAINE 1% INJ 10MG/ML (20 ML MDV) ONE (07:13)
[2023-12-13] MEDS ORDERED: fentaNYL (PF) 50 MCG/ML 2 ML AMP ONE (07:13)
[2023-12-13] MEDS ORDERED: HEPARIN SODIUM 1,000 UN/ML (10ML VL) ONE (07:14)
[2023-12-13 07:25] VITALS: RESP 16; TEMP 97.7
[2023-12-13] MEDS: BENZOCAINE SPRAY 1 CAN TOPICAL ONE ×2 (07:30→07:41)
[2023-12-13] MEDS: MIDAZOLAM 2 MG/2 ML VIAL IVP ONE (07:41)
[2023-12-13] MEDS: fentaNYL (PF) 50 MCG/ML 2 ML AMP IVP ONE (07:41)
--- NOTE | 2023-12-13 07:57 | P.PCN ---
Date of Procedure: 12/13/23 Operative Findings: TRANSESOPHAGEAL ECHOCARDIOGRAM POLITICAL SCIENCE RESEARCH ASSISTANT: SAM GUERRA MD, RPVI INDICATION: Aortic stenosis SEDATION: Conscious sedation COMPLICATION: None LEVEL OF SEDATION Moderate with sedation length of 15 minutes PROCEDURE DESCRIPTION: After obtaining an informed consent, the patient was brought to transesophageal echocardiogram room. Pulse oximetry and heart monitors were attached to the patient. The patient throat was sprayed using lidocaine. The patient was turned into left lateral position. After that a bite guard was placed. After an appropriate conscious sedation was initiated, the transesophageal echocardiogram was advanced through a bite guard into the mid esophagus. A 2-D echocardiogram images, color Doppler images, continuous wave images, pulse-wave images, of various cardiac structure were performed. After that the transesophageal echocardiogram probe was advanced into the stomach and fixed to obtain transgastric view was. The probe was brought into the mid esophagus. Inter-atrial septum was interrogated using 2D images, color Doppler images, and then contrast study. After that transesophageal echocardiogram was withdrawn out and upon withdrawing the descending thoracic aorta all the way up to the arch was evaluated. CONCLUSION: 1. Normal biventricular systolic function with EF around 50 to 55% 2. Mildly dilated right ventricle and right atrium 3. Aortic sclerosis with moderate aortic stenosis and mean gradient of 23 mmHg 4. Fenestrated interatrial septum with evidence of PFO and ASD and bidirectional shunt 5. Normal mitral valve with mild mitral regurgitation 6. Normal tricuspid valve and pulmonic valve
[2023-12-13] MEDS: LIDOCAINE 1% INJ 10MG/ML (20 ML MDV) SQ ONE (08:00)
[2023-12-13] MEDS: VERAPAMIL SYRINGE (5 MG/10 ML) INTRAARTER ONE (08:00)
[2023-12-13] MEDS: HEPARIN SODIUM 1,000 UN/ML (10ML VL) IVP ONE (08:07)
[2023-12-13] MEDS ORDERED: RX INFO: IV CONTRAST WAS GIVEN 1 EACH MISC MISCELLANE PRN (08:14)
[2023-12-13] MEDS: IOPAMIDOL-370 100ML BTL INJ ONE (08:14)
[2023-12-13] MEDS ORDERED: SODIUM CHLORIDE 0.9% 1,000 ML IV SCH (08:15)
[2023-12-13] MEDS: IV FLUID CONTINUATION 1,000 ML IV ONE (08:15)
--- NOTE | 2023-12-13 08:17 | P.PCN ---
Date of Procedure: 12/13/23 Operative Findings: CARDIAC CATHETERIZATION PERFORMING PHYSICIAN: Karl Li MD, RPVI PROCEDURE PERFORMED: 1. Selective right and left coronary angiogram 2. Left heart catheterization 3. Ultrasound-guided access of the right radial artery INDICATION: Aortic stenosis COMPLICATION: None APPROACH: Right radial artery LEVEL OF SEDATION: Moderate with a sedation length of 15 minutes PROCEDURE DESCRIPTION: After obtaining an informed consent, the patient was brought to cardiac lab technologist. Local anesthesia was performed using lidocaine subcutaneously. The right radial artery was cannulated using Seldinger technique, the guidewire passed easily, following that we advanced a 5-Armenian sheath dilator assembly, the wire and dilator were removed and sheath was flushed. Following that, 2 mg of verapamil along with 5000 unit heparin were given. Selective right and left coronary angiogram using a 6-Armenian JR4 and JL 3.5 catheters. Following that we did left heart catheterization using 6-Armenian pigtail catheter. The procedure was completed there was no complication. SELECTIVE CORONARY ANGIOGRAM: The right coronary artery: Large-caliber vessel and a dominant vessel and appears to be angiographically normal Left main: Is angiographically normal The left circumflex: Large-caliber vessel nondominant vessel and angiographically normal. Gives rise into an OM which appears to be normal The left anterior descending artery: Large-caliber vessel that is angiographically normal. Gives rise into a large diagonal branch which appears to be normal HEMODYNAMICS: The LVEDP was 5 mmHg with a mean gradient of 33 mmHg across aortic valve CONCLUSION: 1. Normal coronary angiogram 2. Moderate aortic stenosis with a mean gradient of 33 mm POSTPROCEDURE MANAGEMENT: Medical treatment and follow-up with the patient
[2023-12-13 08:56] VITALS: PULSE 73
[2023-12-13 09:42] VITALS: BP 122/60
== END 2023-12-13 12:18 ==
LOC: CATHCVL 06:09
PROVIDERS: ATTEND Internal Medicine Interventional Cardiology
DX: I08.0 Rheumatic disorders of both mitral and aortic valves (principal); I70.0 Atherosclerosis of aorta; Q21.12 Patent foramen ovale; E11.9 Type 2 diabetes mellitus without complications; I10 Essential (primary) hypertension; Z79.82 Long term (current) use of aspirin; Z79.899 Other long term (current) drug therapy
CPT/HCPCS: 93312; 93320; 93325; 93458; 76937; 99152; C1769; C1894; J2250; J2001; J3010; J1644; Q9967

== ENCOUNTER 2024-08-20 05:48 | Day surgery (SDC) | payer MEDICARE, OTHER ==
[~2024-08-20 05:48] MED LIST changes: +ASPIRIN 325 MG TAB PO STA; -HEPARIN SODIUM,PORCINE (1 ML) 2,500 UNIT in SODIUM CHLORIDE 0.9% 250 ML IRRIGATION PRN; -HEPARIN SODIUM,PORCINE 10,000 UNIT in SODIUM CHLORIDE 0.9% 1,000 ML IRRIGATION PRN; -LACTATED RINGERS 1,000 ML IV SCH; -LIDOCAINE 1% (10MG/ML) FOR IV START INTRADERMA PRN
[2024-08-20] MEDS: SODIUM CHLORIDE 0.9% 1,000 ML in EMPTY BAG 1 BAG IV SCH (06:08)
[2024-08-20] MEDS: IV FLUID CONTINUATION 1,000 ML IV ONE (06:21)
[2024-08-20 06:22] VITALS: RESP 16; TEMP 97.6
[2024-08-20 06:23] LABS: Basophils # (A) 0.1 k/uL (0-0.2); Basophils % (A) 1 %; Eosinophils # (A) 0.3 k/uL (0-0.7); Eosinophils % (A) 4 %; HCT 42.7 % (34.0-46.0); HGB 13.8 gm/dL (11.4-16.0); Lymphocytes # (A) 2.8 k/uL (1.0-4.8); Lymphocytes % (A) 44 %; MCH 29.3 pg (25.0-35.0); MCHC 32.3 g/dL (31.0-37.0); MCV 90.5 fL (80.0-100.0); Mean Platelet Volume 6.9; Monocytes # (A) 0.4 k/uL (0-1.0); Monocytes % (A) 6 %; Neutrophils # (A) 2.8 k/uL (1.3-7.7); Neutrophils % (A) 44 %; Platelet Count 264 k/uL (150-450); RBC 4.72 m/uL (3.80-5.40); RDW 13.5 % (11.5-15.5); WBC 6.4 k/uL (3.8-10.6)
[2024-08-20] MEDS: LIDOCAINE 1% INJ 10MG/ML (20 ML MDV) SQ ONE (07:51)
[2024-08-20] MEDS: MIDAZOLAM 2 MG/2 ML VIAL IVP ONE (07:55)
[2024-08-20] MEDS: VERAPAMIL SYRINGE (5 MG/10 ML) INTRAARTER ONE (07:56)
[2024-08-20] MEDS: HEPARIN SODIUM,PORCINE 10,000 UNIT in SODIUM CHLORIDE 0.9% 1,000 ML IRRIGATION PRN (07:59)
[2024-08-20] MEDS: HEPARIN SODIUM,PORCINE (1 ML) 2,500 UNIT in SODIUM CHLORIDE 0.9% 250 ML IRRIGATION PRN (07:59)
[2024-08-20] MEDS: HEPARIN SODIUM 1,000 UN/ML (10ML VL) IVP ONE (08:11)
[2024-08-20] MEDS ORDERED: RX INFO: IV CONTRAST WAS GIVEN 1 EACH MISC MISCELLANE PRN (08:39)
[2024-08-20] MEDS: IOPAMIDOL-370 100ML BTL INJ ONE (08:39)
[2024-08-20] MEDS ORDERED: SODIUM CHLORIDE 0.9% 1,000 ML IV SCH (08:45)
--- NOTE | 2024-08-20 08:45 | P.PCN ---
Date of Procedure: 08/20/24 Operative Findings: CARDIAC CATHETERIZATION PERFORMING PHYSICIAN: Karl Li MD, RPVI PROCEDURE PERFORMED: 1. Selective right and left coronary angiogram 2. Left heart catheterization and right heart catheterization 3. Ultrasound-guided access of the right radial artery and ultrasound-guided access of the right common femoral vein INDICATION: Severe aortic stenosis COMPLICATION: None APPROACH: Right radial artery LEVEL OF SEDATION: Moderate with a sedation length of 47 minutes PROCEDURE DESCRIPTION: After obtaining an informed consent, the patient was brought to cardiac lab director. Local anesthesia was performed using lidocaine subcutaneously. The right radial artery was cannulated using Seldinger technique, the guidewire passed easily, following that we advanced a 5-[place]amibian sheath dilator assembly, the wire and dilator were removed and sheath was flushed. Sequently the right common femoral vein was cannulated using micropuncture technique under ultrasound guidance a micropuncture wire passed easily then I placed a 6 [place] 11 cm sheath at the right common femoral vein Following that, 2 mg of verapamil along intra-arterial with 5000 unit heparin were given. Selective right and left coronary angiogram using a 6-[place]amibian JR4 and JL 3.5 catheters. Right heart catheterization was performed using a [place] catheter. Left heart catheterization was performed using pigtail catheter. I did across aortic valve using straight wire and an AL-1 and subsequently exchanged into a pigtail catheter. The procedure was completed there was no complication. SELECTIVE CORONARY ANGIOGRAM: The right coronary artery: Large-caliber vessel dominant vessel appears to be angiographically normal Left main: Is angiographically normal The left circumflex: Large caliber vessel nondominant vessel appears to be angiographically normal S1 The left anterior descending artery: Large-caliber vessel with no evidence of high-grade stenosis was identified HEMODYNAMICS: The pulmonary capillary wedge pressure was 14 mmHg PA pressures were as follows systolic of 29 and diastolic of 11 and mean of 21 mmHg RV pressures were as follows systolic 29 and end-diastolic of 13 mmHg RA pressure was 15 mmHg The LVEDP was 10 mmHg Cardiac output was 4.94 L/min with a cardiac index of 2.16 L/min/m Aortic valve area was 0.93 cm with aortic valve area index 0.41 cm/m The aortic valve mean gradient was 26 mmHg CONCLUSION: 1. Normal coronary angiogram 2. Severe aortic stenosis by area and moderate aortic stenosis by gradient. The condition could be secondary to low-flow low gradient paradoxical severe aortic stenosis POSTPROCEDURE MANAGEMENT: Referred the patient to be seen at the valve clinic
[2024-08-20 15:51] VITALS: BP 115/65; PULSE 64
== END 2024-08-20 13:52 | disposition home or self-care (01) ==
LOC: CATHCVL 05:48
PROVIDERS: ATTEND Internal Medicine Interventional Cardiology
DX: I35.0 Nonrheumatic aortic (valve) stenosis (principal); I10 Essential (primary) hypertension; E78.5 Hyperlipidemia, unspecified; I38 Endocarditis, valve unspecified; E66.3 Overweight; Z79.82 Long term (current) use of aspirin; Z79.899 Other long term (current) drug therapy
CPT/HCPCS: 93453; 85025; 99152; 99153; C1769 ×4; C1894 ×2; C1751; J2250; J1644 ×3; J2003; Q9967

== ENCOUNTER → 2024-09-13 | Outpatient (CLI) | payer MEDICARE, OTHER ==
[2024-09-13 10:36] LABS: ALT 17 U/L (4-34); AST 22 U/L (14-36); African American GFR (CKD) 67 (>60 ml/min/1.73 sqM); Albumin 3.7 g/dL (3.5-5.0); Alkaline Phosphatase 94 U/L (38-126); Anion Gap 8 mmol/L; Bilirubin,Unconjugated 0.4 mg/dL (0.0-1.1); Blood Urea Nitrogen 12 mg/dL (7-17); Calcium 8.8 mg/dL (8.4-10.2); Carbon Dioxide 28 mmol/L (22-30); Chloride 102 mmol/L (98-107); Globulin 3.6 g/dL; Glucose 120 mg/dL (74-99); Magnesium 1.8 mg/dL (1.6-2.3); Non-African American GFR(CKD) 58 (>60 ml/min/1.73 sqM); Potassium 4.3 mmol/L (3.5-5.1); Sodium 138 mmol/L (137-145); Total Bilirubin 0.5 mg/dL (0.2-1.3); Total Protein 7.3 g/dL (6.3-8.2)
[2024-09-13 10:43] LABS: NT-Pro-B-Type Natriuretic Pept 128 pg/mL
[2024-09-13 11:56] LABS: Appearance,Urine Clear (Clear); Bilirubin,Urine Negative (Negative); Blood,Urine Negative (Negative); Color,Urine Yellow; Glucose,Urine (UA) Negative (Negative); Ketones,Urine Negative (Negative); Leukocyte Esterase,Urine Negative (Negative); Nitrite,Urine Negative (Negative); PH, Urine 6.5 (5.0-8.0); Protein,Urine Negative (Negative); Specific Gravity,Urine 1.027 (1.001-1.035)
--- NOTE | 2024-09-13 12:58 | CT ---
EXAMINATION TYPE: CT TAVR Planning DATE OF EXAM: 09/13/2024 COMPARISON: None. CLINICAL INDICATION: Female, 69 years old with history of Z01.818 I35.0 E87.8 E11.9 Z79.899 N28.9 R58 E07.9; TAVR planning TECHNIQUE: CT scan of the Neck, chest, abdomen and pelvis is performed with IV contrast; Helical imaging obtaine d through the chest, abdomen and pelvis during arterial phase dynamic administration of radiographic contrast intravenously. CONTRAST: 125 mL of Isovue 370. CT DLP: 3081.40 mGycm, Automated exposure control for dose reduction was used. FINDINGS: Exam is for surgical planning and not for diagnostic purposes. See report from [employer] regarding preprocedural planning HEART AND PERICARDIUM: Heart is normal in size. There is no pericardial effusion. AV Calcification Severity: Moderate/Severe ARTERIAL VASCULATURE: The aortic arch and thoracic aorta demonstrate a normal course and caliber. The pulmonary outflow tra ct appears within normal limits for size. The thoracic aorta is normal in course and caliber. There is no evidence of aortic dissection, aneurysm or acute aortic injury. Great arch vessels patent and n ormal in course and caliber. PULMONARY ARTERIAL VASCULATURE: Normal caliber., No evidence for central filling defect. NECK AND THYROID: No significant findings. The carotid bifurcations are patent. CHEST: LUNGS: No acute area of infiltrative or consolidative change. LARGE AIRWAYS: Central airways are patent. PLEURAL: No pleural effusion or thickening. No pneumothorax. MEDIASTINUM AND LITZY: No mediastinal or hilar lymphadenopathy or soft tissue mass. SOFT TISSUES/LYMPH NODES: Unremarkable.Normal. MUSCULOSKELETAL: No acute osseous abnormalities ABDOMEN/PELVIS: Please note arterial phase of the imaging limits detailed evaluation of the solid abdominal organs. ABDOMEN LIVER: Liver is heterogeneously hypodense consistent with diffuse fatty infiltrative hepatocellular d isease GALLBLADDER AND BILE DUCTS: The gallbladder is surgically absent. PANCREAS: Unremarkable. SPLEEN: Unremarkable. ADRENAL GLANDS: Unremarkable. KIDNEYS AND URETERS: No evidence of hydronephrosis or renal calculus. The ureters are unremarkable. PELVIS BLADDER: Incompletely distended but grossly unremarkable. REPRODUCTIVE: The uterus is surgically absent. ABDOMEN & PELVIS STOMACH AND BOWEL: Post gastric sleeve changes to the stomach. No evidence of bowel obstruction. PERITONEUM/RETROPERITONEUM: No evidence of pneumoperitoneum or free fluid. VASCULATURE: No evidence of aortic aneurysm. MUSCULOSKELETAL: Surgical change left shoulder. LYMPH NODES: No gross evidence for lymphadenopathy. SOFT TISSUE/ABDOMINAL WALL: Unremarkable Other Lines/Tubes/Devices/Hardware: None IMPRESSION: 1. Moderate/Severe calcifications of the aortic valve. 2. No acute process. 3. See report from [employer] regarding preprocedural planning [facility], , 09/13/2024 12:56 PM
[2024-09-13 15:58] LABS: Basophils # (A) 0.05 X 10*3/uL (0.00-0.10); Basophils % (A) 0.7 %; Eosinophils # (A) 0.18 X 10*3/uL (0.04-0.35); Eosinophils % (A) 2.5 %; HGB 14.6 g/dL (12.0-15.0); Lymphocytes % (A) 32.3 %; MCH 28.3 pg (27.0-32.0); MCHC 30.4 g/dL (32.0-37.0); MCV 93.2 FL (80.0-97.0); Mean Platelet Volume 10.4 FL (9.5-12.2); Monocytes % (A) 8.4 %; NRBC Per 100 WBC 0 X 10*3/uL (0.00-0.01); Neutrophils # (A) 3.95 X 10*3/uL (1.80-7.70); Neutrophils % (A) 55.5 %; Platelet Count 315 X 10*3/uL (140-440); RBC 5.15 X 10*6/uL (4.10-5.20); RDW 13.3 % (11.5-14.5); WBC 7.12 X 10*3/uL (4.50-10.00)
[2024-09-13 16:10] LABS: Chol/HDL Ratio 4.55 Ratio; LDL Cholesterol,Calculated 150.8 mg/dL (0.0-131.0)
[2024-09-13 20:33] LABS: INR 1.1 (<1.2); Prothrombin Time 11.7 sec (10.0-12.5)
== END | disposition home or self-care (01) ==
LOC: LABWHC1 09:21
PROVIDERS: ATTEND Thoracic Surgery (Cardiothoracic Vascular Surgery)
DX: Z01.818 Encounter for other preprocedural examination (principal); I35.2 Nonrheumatic aortic (valve) stenosis with insufficiency; I44.4 Left anterior fascicular block; E87.8 Other disorders of electrolyte and fluid balance, not elsewhere classified; E11.9 Type 2 diabetes mellitus without complications; N28.9 Disorder of kidney and ureter, unspecified; E07.9 Disorder of thyroid, unspecified; E78.5 Hyperlipidemia, unspecified; R58 Hemorrhage, not elsewhere classified; R35.0 Frequency of micturition; R94.31 Abnormal electrocardiogram [ECG] [EKG]; Z79.01 Long term (current) use of anticoagulants; Z79.899 Other long term (current) drug therapy
CPT/HCPCS: 84560; 83880; 80061; 80053; 84443; 82248; 83735; 85025; 85610; 85730; 81003; 87086; 83036; 71275; 36415 ×2; 74174; Q9967

== ENCOUNTER 2024-10-17 05:39 | Inpatient (IN) | payer MEDICARE, OTHER ==
[2024-10-17] MEDS ORDERED: ELECTROLYTE-A SOLUTION 1,000 ML with POTASSIUM CHLORIDE 100 MEQ, MAGNESIUM SULFATE 16 M... IV PRN (06:00)
[2024-10-17] MEDS ORDERED: CLEVIDIPINE BUTYRATE 25 MG in EMPTY BAG 1 BAG IV PRN (06:00)
[2024-10-17] MEDS ORDERED: PROTAMINE SULFATE 250 MG in EMPTY BAG 1 BAG IV PRN (06:00)
[2024-10-17] MEDS ORDERED: INSULIN REGULAR 100 UNIT in SODIUM CHLORIDE 0.9% 100 ML IV PRN (06:00)
[2024-10-17] MEDS ORDERED: SODIUM CHLORIDE 0.9% 500 ML 500 ML INTRAARTER PRN (06:00)
[2024-10-17] MEDS ORDERED: TRANEXAMIC ACID 2,000 MG in SODIUM CHLORIDE 0.9% 80 ML IV PRN (06:00)
[2024-10-17] MEDS ORDERED: NITROGLYCERIN-D5W PMX 25 MG/250 ML BTL IV PRN (06:00)
[2024-10-17] MEDS: ASPIRIN 325 MG TAB PO ONE (06:43)
[2024-10-17] MEDS: ATORVASTATIN 10 MG TAB PO ONE (06:45)
[2024-10-17] MEDS: METOPROLOL TARTRATE 25 MG TAB PO ONE (06:45)
[2024-10-17] MEDS: CLOPIDOGREL 75 MG TAB PO ONE (06:45)
[2024-10-17 06:50] LABS: Glucose,Whole Blood 103 mg/dL (70-110)
[2024-10-17] MEDS: SODIUM CHLORIDE 0.9% 1,000 ML IV ONE (07:09)
[2024-10-17] MEDS ORDERED: PROPOFOL 10 MG/ML 20 ML VIAL IV ONE (07:32)
[2024-10-17] MEDS ORDERED: ROCURONIUM 10 MG/ML (5 ML VIAL) IV ONE (07:32)
[2024-10-17] MEDS ORDERED: PROTAMINE SULFATE 10 MG/ML 5 ML VIAL ONE (07:32)
[2024-10-17] MEDS ORDERED: HEPARIN SODIUM,PORCINE 10,000 UNIT/ML 1 ML VIAL ONE (07:32)
[2024-10-17] MEDS ORDERED: ALBUTEROL HFA INHALER INHALATION ONE (07:32)
[2024-10-17] MEDS ORDERED: MIDAZOLAM 2 MG/2 ML VIAL ONE (07:32)
[2024-10-17] MEDS ORDERED: NEOSTIGMINE 1 MG/ML 10 ML VIAL ONE (07:32)
[2024-10-17] MEDS ORDERED: SUCCINYLCHOLINE CHLORIDE 200 MG/10 ML VIAL IV ONE (07:32)
[2024-10-17] MEDS ORDERED: PHENYLEPHRINE-0.9% NACL SYG 1,000 MCG/10 ML SYRINGE ONE (07:32)
[2024-10-17] MEDS ORDERED: GLYCOPYRROLATE 0.2 MG/ML 2 ML VIAL ONE (07:32)
[2024-10-17] MEDS ORDERED: SUGAMMADEX SODIUM 100 MG/ML SYR IV ONE (07:32)
[2024-10-17] MEDS ORDERED: fentaNYL (PF) 50 MCG/ML 2 ML AMP ONE (07:32)
[2024-10-17] MEDS ORDERED: LIDOCAINE 1% INJ 10MG/ML (20 ML MDV) ONE (07:32)
[2024-10-17] MEDS: IOPAMIDOL-370 100ML BTL IVP ONE (09:00)
--- NOTE | 2024-10-17 09:30 | P.OP ---
Description of Procedure: Transcatheter Aoritc Valve Replacement Operative report PROCEDURE PERFORMED: 1. Percutaneous Aortic Valve Implantation using a 29 mm Evolut-FX +. 2. Transesophageal echocardiography (performed by anesthesia) 3. Ultrasound guided access and repair of right femoral artery access site by Perclose closure device. 4. Placement of temporary pacemaker wire. 5. Aortic root angiography INDICATIONS: 1. 69 year-old with a history of severe symptomatic aortic valve stenosis. PERFORMING PHYSICIANS: 1. Maulik Murray DO Interventional Cardiology 2. Karl Li MD Interventional Cardiology. 3. Mariusz Sanches MD, Cardiothoracic Surgeon. 4. Dr Arnoldo MD, Cardiothoracic Surgeon SEDATION: General anesthesia provided by anesthesia, see separate note APPROACH: Right femoral artery via percutaneous approach PROCEDURE DESCRIPTION: The patient was discussed at valve clinic with multidisciplinary approach with cardiothoracic surgeon as well as tool crib attendant and thought better treated with TAVR. Risks, benefits, and alternatives of the procedure had been explained to the patient who understood the risks and agreed to proceed. After consents were obtained, patient was brought to the transcatheter aortic valve implantation room in the cardiac analytical lab analyst and general anesthesia was provided by the anesthesiologist (see separate report). Once full body sterile prep was performed, left femoral venous access was obtained, a 6Fr sheath was placed and a temporary pacemaker was placed in the RV apex. Pacing threshholds were checked and deemed appropriate. Next the left femoral artery was accessed using a modified Seldinger technique, ultrasound guidance and micropuncture technique. A 6 Bulgarian destination sheath was placed in the left femoral artery. Next, a 6-Bulgarian pigtail catheter was advanced into the aorta and positioned in the aortic root, aortic root angiography was performed to determine optimal deployment angle. The right femoral artery was accessed using modified Seldinger technique, micropuncture technique and under direct ultrasound guidance. Femoral angiogram was done showing access in the common femoral artery and a 6Fr sheath was placed. Next preclose technique was performed using 2 Perclose. Next a 0.035 Safari wire was placed in the Aorta via a pigtail catheter. Over that the arteriotomy was serially dilated and a 14 Fr [place] sheath was placed. Next a 6F- AL1 catheter was advanced over a wire to the aortic root. A straight wire was advanced through the catheter and used to cross the severely stenotic valve. The AL1 was then exchanged for a 6Fr pigtail catheter and pressure measurements were obtained. The 0.035 Safari wire was then positioned in the apex. Next a 29 mm Evolut-FX was advanced. The valve was then positioned across the aortic valve and confirmed with aortic root angiography. The valve was initially partially deployed however needed repositioning and therefore was partially recaptured. The valve was then deployed in proper position using slow deployment and with rapid pacing in conjuncture with aortic root angiography and ERMELINDA. The delivery system was withdrawn back into the arch and an aortic root injection in conjunction with ERMELINDA demonstrated a satisfactory result. There was no para valvular leak. There was no evidence of any other significant abnormalities. The preclose Perclose was then deployed in the right femoral artery. There was initially some contrast leak and therefore pressure was held and hemostasis was achieved. The pigtail was then advanced to the level of the iliac bifurcation via the left femoral access. Femoral angiogram was performed that showed no contrast leak. The left femoral angiogram demonstrated an arteriotomy in the common femoral artery and this was repaired using a 6F angioseal device with complete hemostasis. The temporary venous pacemaker was withdrawn and the venous sheath was removed and hemostasis achieved. The patient was then transported to the ICU in hemodynamically stable condition, requiring no pressor support. COMPLICATIONS: None CONCLUSION: 1. Implantaion of 29 mm Evolut-FX transcatheter aortic valve via right femoral approach under ERMELINDA and fluoro guidance with no dian-valvular aortic regurgitation. 2. Placement of temporary pacemaker wire 3. Aortic Root Aortogram. RECOMMENDATIONS: The patient will be monitored in the ICU for hemodynamic and electrical stability.
[2024-10-17 09:51] LABS: Glucose,Whole Blood 114 mg/dL (70-110)
--- NOTE | 2024-10-17 10:00 | P.OP ---
Date of Procedure: 10/17/24 Preoperative Diagnosis: Severe aortic stenosis Postoperative Diagnosis: Severe aortic stenosis Procedure(s) Performed: 1. Transvenous pacemaker placement temporary 2. Placement of 29 trans aortic Medtronic valve placement Implants: 29 mm Medtronic evolute Fx+ transaortic valvular prosthesis Anesthesia: GETA Surgeon: Rigoberto Luke (primary CV surgeon) Hog Scalder #1: Maulik Murray (Primary interventional cardiology) Hog Scalder #2: Mariusz Sanches (Secondary CV surgeon ([place])) Estimated Blood Loss (ml): 25 Pathology: none sent Condition: stable Disposition: PACU Indications for Procedure: Severe symptomatic aortic stenosis Operative Findings: 1. Excellent valve placement 2. No paravalvular leak 3. Good closure of the primary delivery site in the right common femoral artery with no significant narrowing or bleeding 4. Minimal hematoma at the primary delivery site on the right and none at the diagnostic side on the left Description of Procedure: After consent was obtained, the patient was brought to the room where she underwent general by endotracheal tube anesthesia and placement of the transesophageal echo scope. We then proceeded to gain access with ultrasound guidance to the right and left femoral arteries. The right was designated the primary site for delivery in the left for diagnostic. Dr. Li gained primary access and placed a sheath in both access sites. He was then able to gain access to the left femoral vein and placed a sheath. We were then able to place the temporary pacemaker in the right ventricle without difficulty. We tested it and found a threshold less than 1 V. We then turned the generator to 5 V and set the rate to 140 for activation later, prior to deployment of the valve. We then placed the pigtail catheter in the diagnostic side in the noncoronary sinus and effective patient evaluated the sinuses and the root. We were then able to place the guiding catheter through the diagnostic side after upsizing to a large sheath and giving heparin. We gained access to the left ventricle without difficulty and were able to exchange catheters to a pigtail and then deliver the safari wire into the left ventricle. We then removed the pigtail and removed the 14 [place] sheath in the right groin delivering the Medtronic device after checking and verifying it was loaded with no significant folding. We then proceeded onto advance the valve retrograde around the arch and through the valve. Once we had it in reasonable position we began to deploy and after we saw a small amount of flowering we held respirations, paced the patient at 140 and when we had good capture and pressure response we did the initial deployment of the valve. It was initially in excellent position but does deep and we had to partially recapture and pull back to a satisfactory place then redeploying. At the second deployment we had excellent positioning and checked in both the cusp overlap view and the 3 cusp view. We were very pleased with the positioning and finish the deployment under pacing. We then pulled the deployment device after centering it in the valve and recaptured the tip for removal. We checked on ERMELINDA and there was no evidence of paravalvular leak. The valve looked very rounded and well-deployed. We were then able to finish the procedure with deployment of the Perclose's in the right groin. The patient was extremely deep and a selective arteriogram of the right common iliac artery showed no evidence of leakage from the right common femoral after protamine and adequate pressure held. The left-sided catheters were then removed and an Angio-Seal was used on the diagnostic site and pressure was held on the vein after removing the pacemaker and sheath. Patient tolerated the procedure well and was taken to PACU in stable condition.
[2024-10-17 10:27] LABS: HCT 41.9 % (34.0-46.0); HGB 12.6 gm/dL (11.4-16.0); MCH 27.9 pg (25.0-35.0); MCHC 30.1 g/dL (31.0-37.0); MCV 92.5 fL (80.0-100.0); Mean Platelet Volume 7.6; Platelet Count 235 k/uL (150-450); RBC 4.53 m/uL (3.80-5.40); RDW 13.7 % (11.5-15.5); WBC 8.5 k/uL (3.8-10.6)
--- NOTE | 2024-10-17 11:01 | P.ANPRN ---
Procedure Note - Anesthesia - ERMELINDA Intraop Pre Bypass ERMELINDA Intraop - Anesthesia Indication: Aortic Stenosis Date of Procedure: 10/17/24 Pre-operative Diagnosis: Aortic Stenosis Post-operative Diagnosis: same s/p tavr Surgeon: Mariusz Sanches Left Ventricle: wnl Ejection Fraction: Normal Regional Wall Motion Abnormalities: None Left Ventricle Hypertrophy: No R. Ventricle Function: Normal Aortic Valve: peak gradient 30/mean gradient 15 Anatomy: Trileaflet Aortic Stenosis: Severe Aortic Regurgitation: Mild (central) Mitral Stenosis: None Mitral Regurgitation: Trace Tricuspid Stenosis: None Tricuspid Regurgitation: Trace Pulmonic Stenosis: None Pulmonic Regurgitation: None R. Atrial Dilation: No R. Atrial PFO: No L. Atrial Dilation: No Aortic Dissection: No Aortic Calcification: None Plural Effusion: None
--- NOTE | 2024-10-17 11:01 | P.ANPRN ---
Procedure Note - Anesthesia - ERMELINDA Intraop Post Bypass ERMELINDA Intraop Post Bypass Procedure Performed: TAVR Left Ventricle: WNL Ejection Fraction: Normal Regional Wall Motion Abnormalities: None R. Ventricle Function: Normal Aortic Valve: Prosthetic valve in place. Residual peak 6, mean 4. No perivalvular leak Mitral Valve: Unchanged Tricuspid: Unchanged Pulmonic: Unchanged Aortic Dissection: No
--- NOTE | 2024-10-17 11:02 | XR ---
EXAMINATION TYPE: XR chest 1V portable DATE OF EXAM: 10/17/2024 10:50 AM COMPARISON: 07/09/2020 CLINICAL INDICATION: Female, 69 years old with history of post TAVR, TECHNIQUE: XR chest 1V portable view(s) obtained. FINDINGS: The heart size is normal. The pulmonary vasculature is prominent. Diffuse increased lung markings are present. Correlate for volume overload. IMPRESSION: 1. Mild volume overload or pulmonary edema. Follow-up can be performed as clinically indicated. [facility], , 10/17/2024 11:00 AM
[2024-10-17 11:23] LABS: Glucose,Whole Blood 105 mg/dL (70-110)
[2024-10-17] MEDS ORDERED: ONDANSETRON 4 MG/2 ML VIAL IVP PRN (11:26)
[2024-10-17] MEDS ORDERED: Magnesium Replacement Protocol 1 EACH MISC MISCELLANE PRN (11:26)
[2024-10-17] MEDS ORDERED: ALPRAZolam 0.5 MG TAB PO PRN (11:26)
[2024-10-17] MEDS ORDERED: diphenhydrAMINE 25 MG CAP PO PRN (11:26)
[2024-10-17] MEDS ORDERED: Potassium Replacement Protocol 1 EACH MISC MISCELLANE PRN (11:26)
[2024-10-17] MEDS ORDERED: MECLIZINE 25 MG TAB PO PRN (11:26)
[2024-10-17] MEDS ORDERED: IPRATROPIUM-ALBUTEROL 3 ML NEB INHALATION PRN (11:26)
[2024-10-17 14:05] LABS: ABG Base Excess 2.2 mmol/L; ABG HCO3 29 mmol/L (21-25); ABG PCO2 55 mmHg (35-45); ABG PH 7.34 (7.35-7.45); ABG PO2 132 mmHg (83-108); ABG TCO2 31 mmol/L (19-24)
[2024-10-17 14:31] LABS: Glucose,Whole Blood 83 mg/dL (70-110)
[2024-10-17 14:58] LABS: ABG Base Excess 2.7 mmol/L; ABG HCO3 29 mmol/L (21-25); ABG Oxygen Saturation 98.2 % (94-97); ABG PCO2 51 mmHg (35-45); ABG PH 7.36 (7.35-7.45); ABG PO2 103 mmHg (83-108); ABG TCO2 31 mmol/L (19-24)
[2024-10-17 15:00] LABS: Allen Test Performed? NO
[2024-10-17] MEDS: ASPIRIN 81 MG PO SCH (18:01)
[2024-10-17] MEDS: CITALOPRAM HYDROBROMIDE 20 MG TAB PO SCH (18:01)
[2024-10-17] MEDS: ceFAZolin 3 GM in SODIUM CHLORIDE 0.9% 100 ML IVPB SCH (18:01)
[2024-10-17] MEDS: CHOLECALCIFEROL 25 MCG (1000 IU) TABLET PO SCH (18:01)
[2024-10-17] MEDS: lisinopriL 10 MG TAB PO SCH (18:02)
[2024-10-17] MEDS: PANTOPRAZOLE 40 MG TABLET PO SCH (18:02)
[2024-10-17] MEDS: MECLIZINE 25 MG TAB PO SCH (18:02)
[2024-10-17] MEDS: MULTIVITAMINS, THERA 1 EACH TAB PO SCH (18:02)
[2024-10-17] MEDS: MAGNESIUM OXIDE 400 MG TAB PO SCH (18:02)
[2024-10-17] MEDS: LACTATED RINGERS 1,000 ML IV SCH ×2 (18:37→19:41)
[2024-10-17] MEDS: ceFAZolin 3 GM in SODIUM CHLORIDE 0.9% 100 ML IVPB ONE (19:39)
[2024-10-17] MEDS: SODIUM CHLORIDE 0.9% 1,000 ML IV SCH (19:41)
[2024-10-17] MEDS: ACETAMINOPHEN TAB 325 MG TAB PO PRN (20:16)
[2024-10-17] MEDS: SENNOSIDES-DOCUSATE SODIUM 1 EACH TAB PO SCH (20:17)
[2024-10-17] MEDS: HEPARIN SODIUM,PORCINE 5,000 UNIT/ML 1 ML VIAL SQ SCH (23:28)
[2024-10-17] MEDS: LATANOPROST 0.005% OPHTH DROPS 2.5 ML BTL BOTH EYES SCH (23:28)
[2024-10-18 07:49] LABS: Basophils % (A) 0 %; Eosinophils # (A) 0.1 k/uL (0-0.7); Eosinophils % (A) 1 %; HCT 39.1 % (34.0-46.0); HGB 11.7 gm/dL (11.4-16.0); Hypochromasia Moderate; Lymphocytes # (A) 1.4 k/uL (1.0-4.8); Lymphocytes % (A) 18 %; MCHC 29.9 g/dL (31.0-37.0); MCV 93.4 fL (80.0-100.0); Monocytes # (A) 0.6 k/uL (0-1.0); Monocytes % (A) 8 %; Neutrophils # (A) 5.6 k/uL (1.3-7.7); Neutrophils % (A) 71 %; Platelet Count 202 k/uL (150-450); RBC 4.19 m/uL (3.80-5.40); RDW 13.5 % (11.5-15.5); WBC 7.8 k/uL (3.8-10.6)
[2024-10-18] MEDS: CLOPIDOGREL 75 MG TAB PO SCH (07:54)
[2024-10-18] MEDS: METOPROLOL TARTRATE 12.5 MG TAB PO SCH (07:55)
[2024-10-18] MEDS: ATORVASTATIN 40 MG TAB PO SCH (07:55)
[2024-10-18 08:04] LABS: ALT 12 U/L (4-34); AST 23 U/L (14-36); African American GFR (CKD) 71 (>60 ml/min/1.73 sqM); Alkaline Phosphatase 77 U/L (38-126); Anion Gap 5 mmol/L; Blood Urea Nitrogen 11 mg/dL (7-17); Calcium 7.9 mg/dL (8.4-10.2); Carbon Dioxide 30 mmol/L (22-30); Chloride 100 mmol/L (98-107); Glucose 124 mg/dL (74-99); Magnesium 1.7 mg/dL (1.6-2.3); Non-African American GFR(CKD) 61 (>60 ml/min/1.73 sqM); Potassium 4.1 mmol/L (3.5-5.1); Sodium 135 mmol/L (137-145); Total Bilirubin 0.6 mg/dL (0.2-1.3)
[2024-10-18 08:05] LABS: Ionized Calcium 4.6 mg/dL (4.5-5.3)
--- NOTE | 2024-10-18 08:41 | XR ---
EXAMINATION TYPE: XR chest 1V portable DATE OF EXAM: 10/18/2024 6:49 AM COMPARISON: 10/17/2024 CLINICAL INDICATION: Female, 69 years old with history of Post Operative Cardiac Surgery, TECHNIQUE: XR chest 1V portable view(s) obtained. FINDINGS: The heart size is normal. The pulmonary vasculature is normal. The lungs are clear. Pulmonary vascular prominence has improved with interval IMPRESSION: 1. No acute pulmonary process. [facility], , 10/18/2024 8:39 AM
[2024-10-18] MEDS ORDERED: MAGNESIUM HYDROXIDE 2,400 MG/30 ML CUP PO PRN (09:00)
[2024-10-18] MEDS ORDERED: bisacodyL 10 MG SUPP RECTAL PRN (09:00)
[2024-10-18 11:50] VITALS: BP 117/66; PULSE 80; RESP 16; TEMP 99.3
--- NOTE | 2024-10-18 12:44 | CA ---
Transthoracic Echo Report Name: Yelena Rogel Age: 69 Gender: F : 1955 Exam Date: 10/18/2024 08:17 Exam Location: [facility] Ht (in): 66 Wt (lb): 279 Ordering Physician: Jennifer Fletcher Attending/Referring Phys: [id number], Justine Horseradish Maker Valorie Rios RDCS Procedure CPT: Indications: post TAVR Cardiac Hx: Technical Quality: Poor, Technically difficult study Contrast 1: Definity Total Dose (mL): 2 Contrast 2: Total Dose (mL): MEASUREMENTS (Male / Female) Normal Values 2D ECHO LV Diastolic Diameter PLAX 4.4 cm 4.2 - 5.9 / 3.9 - 5.3 cm LV Systolic Diameter PLAX 2.3 cm IVS Diastolic Thickness 1.3 cm 0.6 - 1.0 / 0.6 - 0.9 cm LVPW Diastolic Thickness 1.3 cm 0.6 - 1.0 / 0.6 - 0.9 cm LV Relative Wall Thickness 0.6 RV Internal Dim ED PLAX 1.9 cm LVOT Diameter 1.9 cm LA Systolic Diameter LX 3.9 cm 3.0 - 4.0 / 2.7 - 3.8 cm LA Volume 57.0 cm??? 18 - 58 / 22 - 52 cm??? LA Volume Index 22.8 cm???/m??? 16 - 28 cm???/m??? M-MODE Aortic Root Diameter MM 2.3 cm LA Systolic Diameter MM 3.8 cm LA Ao Ratio MM 1.6 DOPPLER AV Peak Velocity 235.9 cm/s AV Peak Gradient 22.3 mmHg AV Mean Velocity 172.8 cm/s AV Mean Gradient 13.7 mmHg AV Velocity Time Integral 47.4 cm LVOT Peak Velocity 115.5 cm/s LVOT Peak Gradient 5.3 mmHg LVOT Velocity Time Integral 29.3 cm LVOT Stroke Volume 82.8 cm??? LVOT Stroke Volume Index 35.9 ml/m??? LVOT Cardiac Index 2851.3 cm???/min???m??? AV Area Cont Eq vti 1.7 cm??? AV Area Cont Eq pk 1.4 cm??? MV Area PHT 2.5 cm??? Mitral E Point Velocity 108.1 cm/s Mitral A Point Velocity 117.6 cm/s Mitral E to A Ratio 0.9 MV Deceleration Time 300.6 ms TR Peak Velocity 225.7 cm/s TR Peak Gradient 20.4 mmHg Right Ventricular Systolic Press 25.0 mmHg FINDINGS Left Ventricle Left ventricular ejection fraction is estimated at 60-65 %. Moderately increased septal wall thickness. Mildly increased posterior wall thickness. Normal left ventricular systolic function. No obvious regional wall motion abnormalities. Left ventricular cavity size normal. Right Ventricle Mild right ventricular dilatation. Right ventricular systolic pressure within normal limits. Right Atrium Mild right atrial dilatation. Left Atrium Mildly increased left atrial volume. Mildly increased left atrial area. Mitral Valve Structurally normal mitral valve. Trace to mild mitral regurgitation. No mitral stenosis. Aortic Valve Normally functioning bioprosthetic aortic valve. without stenosis with a peak velocity of 2.35m/s, peak gradient 22mmHg, mean gradient 14 mmHg, and estimated aortic valve area of 1.7 cm???. No paravalvular aortic regurgitation. No central aortic regurgitation. Tricuspid Valve Structurally normal tricuspid valve. Mild tricuspid regurgitation. Pulmonic Valve Structurally normal pulmonic valve. Trace pulmonic regurgitation. No pulmonic stenosis. Pericardium No pericardial or pleural effusion. Aorta Normal size aortic root and proximal ascending aorta. CONCLUSIONS Left ventricular ejection fraction is estimated at 60-65 %. No obvious regional wall motion abnormalities. Mild right ventricular dilatation. Mild biatrial dilatation Normally functioning bioprosthetic aortic valve. Mean gradient 14 mmHg No paravalvular aortic regurgitation. Previewed by: Dr Faustino Santoyo (Electronically Signed) Final Date: 18 October 2024 12:43
--- NOTE | 2024-10-18 13:14 | P.DS ---
Providers Date of admission: 10/17/24 05:39 Expected date of discharge: 10/18/24 Attending physician: Maulik Murray DO Consults: 10/11/24 11:08 Consult to Anesthesia Routine Consulting Provider: Anesthesia,Services Consult Reason/Comments: Cardiac Surgery Pre-Op 10/17/24 08:58 Consult Physician Routine Consulting Provider: Rigoberto Luke Consult Reason/Comments: post TAVR Do you want consulting provider notified?: Already Contacted Primary care physician: Steffen Contreras Hospital Course: MEDICAL HISTORY: Calcified aortic valve with severe symptomatic aortic valve stenosis, NYHA III History of hypertension Hyperlipidemia Obstructive sleep apnea without home CPAP use Diet-controlled diabetes mellitus Rheumatoid arthritis Breast cancer status post radiation Lifelong non-smoker PROCEDURE: Percutaneous aortic valve implantation using a 29 mm EvoluteFX+ under ERMELINDA and fluoroscopy guidance Transesophageal echocardiography performed by anesthesia Ultrasound-guided access and repair of right femoral artery access site by Perclose closure device Placement of temporary pacemaker wire Aortic root angiography HISTORY OF PRESENT ILLNESS: This is a 69-year-old gentleman who follows on an outpatient basis with Dr. Contreras for primary care and Dr. Li for cardiology. She has a known history of severe aortic stenosis and has been symptomatic with increased exertional dyspnea. She had been referred to structural heart clinic for evaluation for transcatheter aortic valve replacement after heart catheterization and transesophageal echocardiogram were completed. [place] rdiography demonstrated normal systolic function with EF 55%, aortic valve area 0.71 cm with a peak/mean gradient 64/40 mmHg. Heart catheterization showed normal coronaries. After workup was completed STS risk score was calculated along with incremental risk and the patient was felt to be better suited for transcatheter aortic valve replacement due to her morbid obesity and limited ambulatory status as well as history of chest radiation, TAVR was recommended. The usual course of TAVR was discussed in detail the patient, risks and benefits were reviewed, shared decision making between cardiology, surgery, and the patient/family took place, and the patient consented to proceed with the procedure. HOSPITAL COURSE: The patient was brought to the hospital on 10/17/24, was taken to the extended stay area, prepared in the usual fashion, and subsequently taken to the cardiac catheterization laboratory where Dr. Murray and Dr. Sanches completed TAVR procedure under general anesthesia with fluoroscopy and ERMELINDA. The valve was deployed under rapid ventricular pacing and proceeded without event. At the end of the procedure there was no significant gradient, hemodynamics were felt to be acceptable, and there was no evidence of significant perivalvular leak. Upon completion of the procedure the patient was extubated although she did need BiPAP for short period. She was eventually admitted to 3 S. cardiac stepdown unit where she was recovered and monitored hemodynamically. Her oxygen was titrated down, she was tolerating oral diet, her pain was controlled, follow-up TTE demonstrated normal left ventricular systolic function, normally functioning bioprosthetic aortic valve with peak/mean gradient 22/14 mmHg, aortic valve area 1.7 cm, no paravalvular leak and no central aortic regurgitation, and she was ready to be discharged to home on postoperative day #1. She received written and verbal instruction regarding her medications, activity restrictions, signs and symptoms requiring physician notification, and follow-up appointments. Patient Condition at Discharge: Stable Plan - Discharge Summary Discharge Rx Participant: Yes New Discharge Prescriptions: New Sennosides-Docusate Sodium [Senokot-S] 2 each PO HS PRN tab PRN Reason: Constipation Acetaminophen Tab [Tylenol] 650 mg PO Q4HR PRN tab PRN Reason: Fever And/ Or Mild Pain (1-3) Continue Cholecalciferol [Vitamin D3 (25 Mcg = 1000 Iu)] 2,000 unit PO QAM Meclizine [Antivert] 25 mg PO QAM lisinopriL [Zestril] 10 mg PO QAM Citalopram Hydrobromide [CeleXA] 20 mg PO DAILY Omeprazole [PriLOSEC] 40 mg PO DAILY ALPRAZolam [Xanax] 0.5 mg PO DAILY PRN PRN Reason: Anxiety Multivitamins, Thera [Multivitamin (formulary)] 1 tab PO DAILY diphenhydrAMINE HCL [Benadryl] 25 mg PO DAILY PRN PRN Reason: allergies Meclizine [Antivert] 25 mg PO HS PRN PRN Reason: Vertigo Bimatoprost [Lumigan 0.01% Ophth Soln] 1 drop BOTH EYES HS Aspirin 81 mg PO DAILY Magnesium Citrate and Oxide [Magnesium] 250 mg PO DAILY Discharge Medication List Cholecalciferol [Vitamin D3 (25 Mcg = 1000 Iu)] 2,000 unit PO QAM 03/17/16 [History] Meclizine [Antivert] 25 mg PO QAM 09/23/16 [History] lisinopriL [Zestril] 10 mg PO QAM 09/23/16 [History] Citalopram Hydrobromide [CeleXA] 20 mg PO DAILY 06/08/19 [History] Omeprazole [PriLOSEC] 40 mg PO DAILY 09/01/20 [History] Aspirin 81 mg PO DAILY 10/29/21 [History] ALPRAZolam [Xanax] 0.5 mg PO DAILY PRN 12/08/23 [History] Multivitamins, Thera [Multivitamin (formulary)] 1 tab PO DAILY 12/08/23 [History] Bimatoprost [Lumigan 0.01% Ophth Soln] 1 drop BOTH EYES HS 10/03/24 [History] Magnesium Citrate and Oxide [Magnesium] 250 mg PO DAILY 10/03/24 [History] Meclizine [Antivert] 25 mg PO HS PRN 10/03/24 [History] diphenhydrAMINE HCL [Benadryl] 25 mg PO DAILY PRN 10/03/24 [History] Acetaminophen Tab [Tylenol] 650 mg PO Q4HR PRN tab 10/18/24 [Rx] Sennosides-Docusate Sodium [Senokot-S] 2 each PO HS PRN tab 10/18/24 [Rx] Follow up Appointment(s)/Referral(s): Steffen Contreras [Primary Care Provider] - As Needed Karl Li MD [STAFF PHYSICIAN] - 10/25/24 4:45 pm (Your appointment 10/25/2024 is for a groin check with Dr. Li. You also have a 30-day post TAVR echocardiogram and appointment with Dr. Li on 11/23/2024 at 1:45 PM, and a 1 year post TAVR echocardiogram and appointment with Dr. Li on 10/04/2025 at 1 PM. These appointments will take place at [facility]) Clinic,Structural Heart [NON-STAFF] - 11/23/24 1:15 pm (You have a 30-day post TAVR appointment at the valve clinic 11/23/2024 at 1:15 PM, and a 1 year post TAVR appointment at the valve clinic on 10/04/2025 at 12:30 PM. These appointments will take place at the valve clinic prior to your appointment at [facility]) Ambulatory/Diagnostic Orders: Basic Metabolic Panel [LAB.AMB] Location: None Selected Basic Metabolic Panel [LAB.AMB] Location: None Selected Complete Blood Count w/diff [LAB.AMB] Location: None Selected Complete Blood Count w/diff [LAB.AMB] Location: None Selected Activity/Diet/Wound Care/Special Instructions: DISCHARGE INSTRUCTIONS: 1. No driving for 1 week, or until physician gives their ok. 2. No lifting, pushing, or pulling more than 5-10 pounds for 1 week. 3. Hold both groins when you cough or sneeze for the next 2 weeks. Bruising is common, but report increased swelling, pain or fever >101F 4. Shower daily. No pool, hot tub, or bathtub for 1 week 5. No powders, lotions, ointments on incisions. 6. No straining, including for bowel movements. Use stool softner if necessary 7. Stairs are not an issue. Go slowly, using handrail and take 1 step at a time. Ambulate several times daily 8. Continue pain control per as needed orders. 9. Take only the medications listed on your discharge form 10. Eat low salt (limited to 2 grams or 2000 milligrams) daily, avoid adding salt, avoid canned/processed foods 11. Take your weight daily in the morning and record, bring with you to your follow up appointments 12. Keep all follow up appointments. You will need a valve clinic appointment at 30 days and 1 year post procedure for follow up 13. You have been referred to and are expected to begin Cardiac Rehab in approximately 4 weeks. 14. You will need antibiotics prior to any dental work, including cleanings, and any surgeries to prevent Endocarditis (bacterial infection in your heart) For any questions or concerns please call your valve coordinators: Jennifer or Roberth @ Discharge Disposition: HOME SELF-CARE
[2024-10-18 14:26] VITALS: BMI 45.3
== END 2024-10-18 14:20 | disposition home or self-care (01) | DRG 267 ==
LOC: 2ORMAIN 05:39 → 3SCARD 14:34
PROVIDERS: ADMIT Internal Medicine; ATTEND Internal Medicine
PROC: 5A1223Z Performance of Cardiac Pacing, Continuous (ICD-10-PCS; 2024-10-17)
PROC: B3101ZZ Fluoroscopy of Thoracic Aorta using Low Osmolar Contrast (ICD-10-PCS; 2024-10-17)
PROC: B245ZZ4 Ultrasonography of Left Heart, Transesophageal (ICD-10-PCS; 2024-10-17)
PROC: 02RF38Z Replacement of Aortic Valve with Zooplastic Tissue, Percutaneous Approach (ICD-10-PCS; principal; 2024-10-17 08:00)
DX: I35.0 Nonrheumatic aortic (valve) stenosis (principal); Z00.6 Encounter for examination for normal comparison and control in clinical research program; Z68.41 Body mass index [BMI] 40.0-44.9, adult; E11.9 Type 2 diabetes mellitus without complications; M06.9 Rheumatoid arthritis, unspecified; I10 Essential (primary) hypertension; I08.1 Rheumatic disorders of both mitral and tricuspid valves; E66.01 Morbid (severe) obesity due to excess calories; E78.5 Hyperlipidemia, unspecified; G47.33 Obstructive sleep apnea (adult) (pediatric); Z92.3 Personal history of irradiation
CPT/HCPCS: 33361; 71045; 80053; 82330; 82805; 83735; 85025; 85027; 86850; 86900; 86901; 93306; 93312; 93320; 93325; 94660

== ENCOUNTER → 2024-12-12 | Outpatient (CLI) | payer MEDICARE, OTHER ==
[2024-12-12 14:52] VITALS: BP 125/79; PULSE 76; RESP 18; TEMP 97.6
--- NOTE | 2024-12-12 16:20 | P.SLEEP ---
History of Present Illness DATE: 12/12/2024 CONSULTATION/NEW PATIENT EVALUATION HISTORY OF PRESENT ILLNESS/SLEEP-WAKE EVALUATION: 69-year-old lady had been e valuated in the sleep center for possible obstructive sleep apnea hypopnea syndrome. SLEEP SCHEDULE: Usually sleep schedule 11 PM to 7 AM. FALLING ASLEEP: Patient has difficulties with falling asleep, although no TV in bedroom. DURING SLEEP: Patient snores, has dry mouth, restless leg symptoms, sleep talking no history of hypnogogical hallucinations, sleep paralysis, or cataplexy. DURING THE DAY/WAKE STATE: In the morning patient wake up tired, falling asleep during the day, has problems with memory, depression, anxiety. [place] sleepiness scale is is an extremely high range of 18. Patient may take nap anytime and usually feels refreshed after a nap. PAST MEDICAL HISTORY: Hypertension, hyperlipidemia, anxiety, dizziness episodes. PAST SURGICAL HISTORY: Aortic valve surgery for stenosis. MEDICATIONS: Actos, alprazolam, lisinopril, meclizine, diphenhydramine. SOCIAL HISTORY: Please see below. FAMILY HISTORY: Please see below. REVIEW OF SYSTEMS: Snoring, significant excessive daytime sleepiness. No fevers. No double vision. No recent chest pain. No shortness of breath. No abdominal pain. No bleeding episodes. No blood in urine. No seizure episodes. PHYSICAL EXAMINATION: GENERAL: A pleasant patient without any distress. VITAL SIGNS: See below, weight 279 pounds, BMI 45.7. HEENT: PERRLA, EOMI. Evaluation of oropharynx showed tongue protrudes midline, low position of soft palate Mallampati 3, restriction of nasal breathing. NECK: Supple. No JVD. Thyroid is not palpable. 17.5 inches in circumference. LUNGS: Clear to percussion and to auscultation. Good air exchange. No wheezing or rhonchi. HEART: S1,, alprazolam regular. No murmurs, gallops or rubs. ABDOMEN: Soft and nontender. Bowel sounds are present. No organomegaly appreciated. EXTREMITIES: No clubbing or cyanosis. ANIMAL HOSPITAL OFFICE SUPERVISOR: Awake, alert, and oriented x3. Cranial nerves 2 to 7 intact. There is no fasciculation or atrophy noted. No focal deficits observed. ASSESSMENT: 1. Snoring, low position of soft palate Mallampati 3, wide neck 17.5 inches in circumference, sleepiness. Obstructive sleep apnea hypopnea syndrome. 2. Extremely high level of sleepiness with [place] Sleepiness Scale 18 dictate necessity to include narcolepsy differential diagnosis. 3. Hypertension. 4. Anxiety. 5 hyperlipidemia. 6 . History of dizziness episodes. 7. Status post aortic valve surgery for treatment of aortic stenosis. PLAN: 1. Polysomnography for evaluation of patient's breathing during sleep. MSLT if sleep study will be negative for obstructive sleep apnea hypopnea syndrome. 2. Following plan after reading sleep study. 3. Preferable position during sleep on the side. 4. No driving if patient feels any sleepiness. Patient is aware of civil and criminal liability for unsafe driving. 5. Sleep hygiene with regular sleep time for at least 7.5-8 hours. 6. Watching and losing weight. Thank you very much for referring this patient for consultation. Sincerely, Julian Balderas MD, PhD, FAASM. Diplomat of [place] [employer], Sleep Medicine Board by [place] [employer] [place] [employer] [facility] [place] cc: Steffen Contreras MD Past Medical History Past Medical History: Cancer, Chest Pain / Angina, Diabetes Mellitus, Eye Disorder, GERD/Reflux, Hearing Disorder / Deafness, Hyperlipidemia, Hypertension, Osteoarthritis (OA), Rheumatoid Arthritis (RA), Sleep Apnea/CPAP/BIPAP Additional Past Medical History / Comment(s): aortic valve stenosis,Diet controlled diabetic, heart murmur, hiatal hernia, Lt Breast CA with radiation tx 2014 approx, Vertigo, degenerative disc disease, doesn't use CPAP, glaucoma carolann eyes,, recent SOB w/exertion History of Any Multi-Drug Resistant Organisms: None Reported Past Surgical History: Bariatric Surgery, Bladder Surgery, Breast Surgery, Cholecystectomy, Heart Catheterization, Hernia Repair, Hysterectomy, Joint Replacement, Tubal Ligation Additional Past Surgical History / Comment(s): Hx left shoulder replacement, carolann eye surgery for glaucoma. Lt breast bx and Lt breast Lumpectomy. Bladder sling. Lap Band 2011, & later removed, & then gastric sleeve surgery, cataracts removed, tubes in ears, open hernia repair 07/26/2022 Past Anesthesia/Blood Transfusion Reactions: No Reported Reaction Past Psychological History: Anxiety, Depression, Panic Disorder Smoking Status: Former smoker, Second hand smoke exposure Past Alcohol Use History: None Reported Additional Past Alcohol Use History / Comment(s): smoked in her early 20s Past Drug Use History: None Reported - Past Family History Daughter(s) Family Medical History: Cancer Additional Family Medical History / Comment(s): Colon CA-stage 4 at age 40-has colostomy-no complications now Son(s) Family Medical History: Deep Vein Thrombosis (DVT), Pulmonary Embolus Additional Family Medical History / Comment(s): clooting disorder Mother Family Medical History: Hypertension Father Family Medical History: Coronary Artery Disease (CAD), Diabetes Mellitus Medications and Allergies Home Medications Medication Instructions Recorded Confirmed Type Cholecalciferol [Vitamin D3 (25 2,000 unit PO QAM 03/17/16 10/17/24 History Mcg = 1000 Iu)] Meclizine [Antivert] 25 mg PO QAM 09/23/16 10/17/24 History lisinopriL [Zestril] 10 mg PO QAM 09/23/16 10/17/24 History Citalopram Hydrobromide [CeleXA] 20 mg PO DAILY 06/08/19 10/17/24 History Omeprazole [PriLOSEC] 40 mg PO DAILY 09/01/20 10/17/24 History Aspirin 81 mg PO DAILY 10/29/21 10/17/24 History ALPRAZolam [Xanax] 0.5 mg PO DAILY PRN 12/08/23 10/17/24 History Multivitamins, Thera [Multivitamin 1 tab PO DAILY 12/08/23 10/17/24 History (formulary)] Bimatoprost [Lumigan 0.01% Ophth 1 drop BOTH EYES HS 10/03/24 10/03/24 History Soln] Magnesium Citrate and Oxide 250 mg PO DAILY 10/03/24 10/17/24 History [Magnesium] Meclizine [Antivert] 25 mg PO HS PRN 10/03/24 10/17/24 History diphenhydrAMINE HCL [Benadryl] 25 mg PO DAILY PRN 10/03/24 10/03/24 History Acetaminophen Tab [Tylenol] 650 mg PO Q4HR PRN tab 10/18/24 Rx Sennosides-Docusate Sodium 2 each PO HS PRN tab 10/18/24 Rx [Senokot-S] Allergies Allergy/AdvReac Type Severity Reaction Status Date / Time cigarette smoke Allergy Dyspnea, Verified 10/03/24 13:50 congestion Physical Exam Vitals: Vital Signs Temp Pulse Resp BP Pulse Ox 12/12/24 14:51 97.6 F 76 18 125/79 96 Intake and Output 12/12/24 12/12/24 12/12/24 06:59 14:59 22:59 Other: Weight 126.552 kg Sleep Note - Sleep Data ESS Total: 18 - Sleep Note Sleep Note: Temperature: 97.6 F Pulse Rate: 76 Respiratory Rate: 18 Blood Pressure: 125/79 SpO2: 96 Height: 5 ft 5.5 in Weight: 126.552 kg BMI: Neck Circumference: 17.5
== END ==
LOC: 3 N SLEEP 14:36
PROVIDERS: ATTEND Internal Medicine
DX: G47.33 Obstructive sleep apnea (adult) (pediatric) (principal); I10 Essential (primary) hypertension; F41.9 Anxiety disorder, unspecified; E78.5 Hyperlipidemia, unspecified; Z87.898 Personal history of other specified conditions; Z95.2 Presence of prosthetic heart valve; Z86.79 Personal history of other diseases of the circulatory system
CPT/HCPCS: 99211

== ENCOUNTER 2025-02-17 19:19 | Outpatient (CLI) | payer MEDICARE, OTHER ==
--- NOTE | 2025-02-20 14:11 | P.PCN ---
Description of Procedure: POLYSOMNOGRAPHY REPORT PROCEDURE(S)/DATE(S): Polysomnography 02/17/2025 CLINICAL: Patient has been seen in the sleep center for evaluation of obstructive sleep apnea-hypopnea syndrome. Please see my consultation. Sleep study has been done for evaluation of patient breathing during the sleep. PROCEDURE: The standard montage for clinical polysomnography included the electroencephalogram, the electrooculogram, the mentalis surface electromyography and Lead II cardiography. The respiratory battery consisted of measurements of nasal/buccal air flow, pressure transducer measurements from nose, thoracic and/or abdominal effort and intercostal surface electromyography. Video monitoring has been done to check for any parasomnia events. Nocturnal oxyhemoglobin saturations were obtained by finger oximetry. Step-romo titration with positive airway pressure was utilized to control the respiratory events, if necessary. RESULTS: During the diagnostic sleep study sleep efficiency was decreased to 79.9%. Latency to sleep onset was prolonged to 49.0 min. Sleep architecture showed stage NI was short 2.0%, Delta sleep was absent 0%, REM sleep was short 16.5%. Respiratory channel showed 39 obstructive apneas, 1 mixed apneas, 29 central apneas, 169 hypopneas with lowest oxygen level 59%. Total apnea hypopnea index was 43.9. Heart rate was in the range between 60 and 68, average 63. EMG showed 21.8 periodic limb movements per hour with 5.0 micro-arousals per hour. IMPRESSIONS: 1. Severe obstructive sleep apnea hypopnea syndrome with severe oxygen desaturation. 2. Significant periodic limb movements have been documented. Please see other impressions from consultation PLAN: 1. The patient will have PAP titration for correction of respiratory abnormalities during the sleep. 2. Losing weight program. 3. Sleep hygiene with regular time in bed for at least 7-1/2 hours. 4. No driving if feeling sleepiness. 5. Please check iron profile including ferritin level. Low level of iron may increase the risk for periodic limb movements. Thank you very much for allowing me to participate in the management of your patient. Sincerely, Julian Balderas MD, PhD, FAASM. Diplomat of [place] [employer], Sleep Medicine Board by [place] [employer] [facility] [place] cc: Steffen Contreras MD
== END 2025-02-18 06:30 | disposition home or self-care (01) ==
LOC: 3 N SLEEP 19:19
PROVIDERS: ATTEND Internal Medicine
DX: G47.33 Obstructive sleep apnea (adult) (pediatric) (principal); G47.61 Periodic limb movement disorder; Z91.09 Other allergy status, other than to drugs and biological substances
CPT/HCPCS: 95810